=== PATIENT | male | born 1945 | race Caucasian/White ===

== ENCOUNTER → 2017-04-16 16:07 | Outpatient (CLI) | payer MEDICARE, BC, SELFPAY ==
--- NOTE | 2017-04-16 16:17 | XR_ITS ---
XR ribs RT min 3V w CXR1V HISTORY: Right-sided chest pain ITS.REASON: RT SCAPULA PAIN,RT RIB PAIN ORDERING PHYSICIAN: Silvino Guthrie MD PATIENT AGE: 72 years COMPARISON: None FINDINGS: A frontal view of the chest shows no acute finding. Multiple views of the right ribs were obtained. No fracture or dislocation. No lytic or blastic change. IMPRESSION: Negative RIBS. If pain persists, consider follow-up exam in 7-[address] with 3-D reformats.
--- NOTE | 2017-04-16 16:17 | XR_ITS ---
XR scapula RT CLINICAL INDICATION: Right scapular pain ORDERING PHYSICIAN: Silvino Guthrie MD PATIENT AGE: 72 years COMPARISON: None FINDINGS: No fracture or dislocation. No lytic or blastic change. Mild osteoarthritic change of the acromioclavicular joint. IMPRESSION: Negative right scapula. Mild osteoarthritic change of the acromioclavicular joint
== END ==
PROVIDERS: PCP Family Medicine; Visit Provider Family Medicine
DX: M89.8X1 Other specified disorders of bone, shoulder (principal); R07.81 Pleurodynia
CPT/HCPCS: 71101; 73010

== ENCOUNTER → 2017-05-03 11:56 | Outpatient (POV) | payer MEDICARE, BC, SELFPAY | PROVIDERS: Visit Provider Podiatrist | DX: Z00.00 Encounter for general adult medical examination without abnormal findings (principal) ==

== ENCOUNTER → 2017-05-03 13:19 | Outpatient (CLI) | payer MEDICARE, BC, SELFPAY ==
--- NOTE | 2017-05-03 13:21 | CT_ITS ---
CT chest wo con HISTORY: Hepatocellular carcinoma, evaluate for metastatic disease ITS.REASON: HEPATOCELLULAR CARCINOMA ORDERING PHYSICIAN: Court Vrema MD PATIENT AGE: 72 years TECHNIQUE: Axial images obtained. Sagittal and coronal reformatted images are also generated and reviewed. CONTRAST: None COMPARISON: None FINDINGS: No mediastinal mass. No evidence of mediastinal or hilar adenopathy. No obvious hilar mass. There are coronary artery calcifications. These are dense in nature. Normal heart size. No evidence of pericardial effusion. The lungs are clear. No suspicious pulmonary nodules. No infiltrate or effusion. No obvious chest wall mass. There is mild loss of height anteriorly of T7 and T8 age-indeterminate. Upper abdominal images show subtle isodensity in the liver at segment 5 as previously described on previous MRIs and could be due to an area of neoplasm/treated neoplasm. Please see MRI report for further detail. IMPRESSION: 1. No evidence of thoracic metastasis 2. Persistent lobular contour with slight decreased attenuation of the liver at segment 5 which may be related to neoplasm or treated neoplasm
== END ==
PROVIDERS: Visit Provider Surgery
DX: Z03.89 Encounter for observation for other suspected diseases and conditions ruled out (principal); C22.0 Liver cell carcinoma
CPT/HCPCS: 71250

== ENCOUNTER → 2017-06-21 08:49 | Outpatient (POV) | payer MEDICARE, BC, SELFPAY | PROVIDERS: PCP Family Medicine; Visit Provider Podiatrist | DX: Z00.00 Encounter for general adult medical examination without abnormal findings (principal) ==

== ENCOUNTER → 2017-07-03 14:59 | Outpatient (POV) | payer MEDICARE, BC, SELFPAY | PROVIDERS: PCP Family Medicine | DX: Z00.00 Encounter for general adult medical examination without abnormal findings (principal) ==

== ENCOUNTER → 2017-10-23 12:36 | Outpatient (CLI) | payer MEDICARE, BC, SELFPAY ==
--- NOTE | 2017-10-23 12:39 | CT_ITS ---
CT chest wo con HISTORY: Cholangiocarcinoma, evaluate for metastasis ITS.REASON: CHOLANGIACARCINOMA ORDERING PHYSICIAN: Court Verma MD PATIENT AGE: 72 years COMPARISON: 05/03/2017 Technique: Axial images obtained without contrast with sagittal and coronal reformats. All CT scans at the facility use one or more dose reduction, viz: automated exposure control, ma/kV adjustment per patient size (including targeted exams where dose is matched to indication, i.e. head), or iterative reconstruction technique. FINDINGS: No mediastinal or hilar mass or adenopathy is evident. There is extensive coronary artery calcification and/or stents noted. Heart size is normal with no evidence of pericardial effusion. No suspicious pulmonary nodules are evident. No infiltrates or effusions. Central airways are patent. No acute bony anomalies. No bony destructive process. Upper abdominal images demonstrate low density changes involving segment 4 of the liver measuring 7 x 4 cm with stranding in the fat anterior to this region. These low density changes could be either neoplastic or secondary to recent treatment for both. The stranding of the fat anterior to the liver may be related to patient's recent microwave ablation. Follow-up suggested with contrast. There is mild splenomegaly at 16 cm IMPRESSION: 1. No evidence of pulmonary metastasis. 2. Low density changes in segment 4 of the liver as described above which could be neoplastic or secondary to recent treatment or both
== END ==
PROVIDERS: PCP Family Medicine; Visit Provider Surgery
DX: C22.0 Liver cell carcinoma (principal)
CPT/HCPCS: 71250

== ENCOUNTER → 2018-01-07 09:50 | Outpatient (CLI) | payer MEDICARE, BC, SELFPAY ==
--- NOTE | 2018-01-07 09:53 | CT_ITS ---
CT chest wo con HISTORY: ITS.REASON: CHOLANGIOCARCINOMA W/RECENT PROGRESSION Evaluate for metastasis ORDERING PHYSICIAN: Court Verma MD PATIENT AGE: 72 years COMPARISON: 10/23/2017 Technique: Axial images obtained with sagittal and coronal reformats. All CT scans at the facility use one or more dose reduction, viz: automated exposure control, ma/kV adjustment per patient size (including targeted exams where dose is matched to indication, i.e. head), or iterative reconstruction technique. FINDINGS: No mediastinal or hilar adenopathy or mass. There is extensive coronary artery calcifications and/or coronary stents present. Normal heart size without evidence of pericardial effusion. No suspicious pulmonary nodules are evident. No effusions or infiltrates. No bony destructive lesions. Calcific tendinitis suspected of the right shoulder. There is mild kyphosis of the thoracic spine with mild wedging involving the T9 vertebral body. There is nonspecific small lucency involving the T1 vertebral body on the left and T11 vertebral body on the right. These are nonsignificant change and could be due to small hemangiomas. Upper abdominal images once again show stranding of the fat anterior to an atrophic lateral segment of the left hepatic lobe with stranding of the fat anterior to this region which may be due to prior treatment. Just inferior to this is an area of slightly hypodensity measuring approximately 8 x 5 cm suspicious for neoplastic involvement. Please correlate with any other recent exams fat the patient may have had at outside institutions. There are no recent abdominal exams available for comparison. This is suspicious for residual or recurrent neoplasm. IMPRESSION: 1. No evidence of pulmonary metastasis. 2. Residual or recurrent mass in the right hepatic lobe anteriorly suspicious for neoplasm incompletely evaluated without contrast
== END ==
PROVIDERS: PCP Family Medicine; Visit Provider Surgery
DX: C22.1 Intrahepatic bile duct carcinoma (principal)
CPT/HCPCS: 71250

== ENCOUNTER → 2018-01-09 10:05 | Outpatient (POV) | payer MEDICARE, BC, SELFPAY | PROVIDERS: Visit Provider Podiatrist | DX: Z00.00 Encounter for general adult medical examination without abnormal findings (principal) ==

== ENCOUNTER → 2018-01-23 10:49 | Outpatient (POV) | payer MEDICARE, BC, SELFPAY | PROVIDERS: Visit Provider Podiatrist | DX: Z00.00 Encounter for general adult medical examination without abnormal findings (principal) ==

== ENCOUNTER → 2018-04-23 12:39 | Outpatient (CLI) | payer MEDICARE, BC, SELFPAY ==
--- NOTE | 2018-04-23 12:49 | XR_ITS ---
XR finger LT min 2V CLINICAL INDICATION: ITS.REASON: LT THUMB LACERATION/ fracture. ORDERING PHYSICIAN: Jocelynn Vera MD PATIENT AGE: 73 years Comparison: 04/07/2018 FINDINGS: Comminuted fracture once again noted involving the distal aspect of the distal phalanx of the thumb with mild distraction of fracture fragments. The distraction appears less apparent. There is an oblique fracture at the base and lateral aspect of the distal phalanx of thumb at the interphalangeal joint. This is not significant changed. IMPRESSION: Fractures of the distal phalanx of the thumb as described above not significantly changed
== END ==
PROVIDERS: PCP Family Medicine; Visit Provider Orthopaedic Surgery
DX: S62.502A Fracture of unspecified phalanx of left thumb, initial encounter for closed fracture (principal)
CPT/HCPCS: 73140

== ENCOUNTER → 2018-05-15 09:52 | Outpatient (CLI) | payer MEDICARE, BC, SELFPAY ==
--- NOTE | 2018-05-15 10:05 | XR_ITS ---
XR foot wt bearing LT 3V Ordering Physician: Toma Rees DPM Patient Age: 73 years: Male HISTORY: ITS.REASON: wound sub 5th met Diabetic foot ulcer. Near Fifth metatarsal TECHNIQUE: 3 view left foot, weightbearing COMPARISON : Left ankle December 2016 FINDINGS There is soft tissue swelling seen laterally at the foot most pronounced overlying the distal metatarsal and fifth MTP joint. However there are no destructive or erosive changes appreciable here on plain film. No obvious features of osteomyelitis. Concern persist consider MR for further evaluation Small vessel calcifications at the foot reflectingDiabetes. There is hammertoe, flexion deformity at toes. Most pronounced deformity is seen at the great toe with arthritic changes at IP joint great toe.. Developing Arthritic changes most notable at dorsal aspect navicular-first cuneiform articulation. Also suspect scant arthritic changes at degenerative changes at the second and third tarsometatarsal joint. A plantar calcaneal spur and spurring at insertion of Achilles tendon. IMPRESSION: . Soft tissue swelling lateral foot overlying the metatarsal head. However no osseous or erosive changes here. Flexion/hammertoe deformity at the toes noted; most pronounced at the great toe.. Developing arthritic changes of most notable at the navicular first cuneiforms articulation
[2018-05-15 10:23] LABS: Basophils % 0.2 % (0.1-2.0); Eosinophils # 0.1 K/mm3 (0.0-0.4); Eosinophils % 1.3 % (0.1-12.0); Hematocrit 37.4 % (42.0-52.0); Hemoglobin 12.3 g/dL (14.1-18.0); Lymphocytes # 1.1 K/mm3 (0.7-4.5); Lymphocytes % 18.6 % (10-50); Mean Corpuscular Hemoglobin 31.5 pg (27.0-31.2); Mean Corpuscular Volume 95.6 fl (80-94); Monocytes # 0.6 K/mm3 (0.1-1.0); Monocytes % 11.1 % (1.7-9.3); Neutrophils % 68.8 % (37.0-80.0); Platelet Count 179 K/mm3 (142-424); Red Blood Count 3.92 M/mm3 (4.60-6.20); Red Cell Distribution Width 19.5 % (11.5-17.5); White Blood Count 5.8 K/mm3 (4.8-10.8)
[2018-05-15 11:25] LABS: Alanine Aminotransferase 80 U/L (12-78); Albumin Level 2.8 gm/dL (3.4-5.0); Alkaline Phosphatase 100 U/L (46-116); Anion Gap 15.1 mEq/L (5-15); Aspartate Amino Transferase 85 U/L (15-37); Bilirubin,Total 1.7 mg/dL (0.2-1.0); Blood Urea Nitrogen 10 mg/dL (7-18); C-Reactive Protein 8.9 mg/L (0.0-0.9); Calcium 8.7 mg/dL (8.5-10.1); Carbon Dioxide 23 mmol/L (21.0-32.0); Chloride 102 mmol/L (98-107); Creatinine,Serum 0.62 mg/dL (0.70-1.30); Estimated Glomerular Filt Rate 128 ml/min (>60); GFR (African American) 155 ML/MIN (>60); Globulin 2.9 gm/dl (1.3-3.2); Glucose 251 mg/dL (74-106); Potassium 4.1 mmoL/L (3.5-5.1); Sodium 136 mmol/L (136-145); Total Protein,Serum 5.7 gm/dL (6.4-8.2)
[2018-05-15 12:39] LABS: Erythrocyte Sedimentation Rate 46 mm/hr (0-20)
[2018-05-15 13:10] LABS: Hemoglobin A1C 7.2 % (0.0-7.0)
== END ==
PROVIDERS: Visit Provider Podiatrist
DX: Z51.89 Encounter for other specified aftercare (principal); E11.8 Type 2 diabetes mellitus with unspecified complications; Z79.4 Long term (current) use of insulin
CPT/HCPCS: 36415; 73630; 80053; 83036; 85025; 85651; 86140; 87070; 87077; 87186; 87205

== ENCOUNTER → 2018-05-21 15:23 | Outpatient (CLI) | payer MEDICARE, BC, SELFPAY ==
--- NOTE | 2018-05-21 15:27 | XR_ITS ---
XR finger LT min 2V CLINICAL INDICATION: Follow-up fracture ITS.REASON: follow up left thumb fracture/ nail bed injury ORDERING PHYSICIAN: Jocelynn Vera MD PATIENT AGE: 73 years Comparison: 04/23/2018 FINDINGS: Comminuted fracture involves the distal phalanx of the left thumb. There is a transverse component distally with no evidence of bony union. Fracture line is still visible. There is an oblique nondisplaced fracture of the proximal aspect of the distal phalanx dorsally which is unchanged. IMPRESSION: No change nondisplaced fractures of the distal tendons of the thumb as described above. No bony union apparent
== END ==
PROVIDERS: PCP Family Medicine; Visit Provider Orthopaedic Surgery
DX: S62.502A Fracture of unspecified phalanx of left thumb, initial encounter for closed fracture (principal)
CPT/HCPCS: 73140

== ENCOUNTER → 2018-05-26 14:05 | Outpatient (CLI) | payer MEDICARE, BC, SELFPAY ==
--- NOTE | 2018-05-26 14:09 | XR_ITS ---
XR foot wt bearing RT 3V, XR foot wt bearing LT 3V Ordering Physician: Toma Rees DPM Patient Age: 73 years: Male HISTORY: ITS.REASON: Charcot Left foot Diabetic foot ulcer beneath fifth metatarsal Open wound plantar aspect left foot slice infected wound. Patient would not remove sock for these images left foot Right foot Charcot's joint right foot patient states bandage is semi permanent and would not remove TECHNIQUE: Right foot: 3 view weightbearing Left foot: 3 view weightbearing ======== RIGHT FOOT COMPARISON is made to right foot plain film from December 2016 Severe Charcot joint arthritic changes right midfoot again observed. (& much more severe & pronounced at the right foot than left).. There is Collapse of mid foot on right compared to left. Downward tilting of distal talus with pronounced pes planus.. Most severe arthritic changes are seen about the navicular of followed by calcaneal cuboid articulations. Navicular appears to be somewhat fragmented and collapsed. Fragments are seen extending superior to the distal talus on lateral view. It. There is mild diffuse soft tissue swelling at the foot Hammertoe deformities at toes again noted Arthritic changes IP joint of great toe noted. First MCP joint is maintained. ...... IMPRESSION... Right foot 1. Severe, advanced Charcot joint changes at right mid foot (Charcot's changes much more pronounced and severe right foot right foot than left) .. Collapse of midfoot . Pes planus Overall similar to 2017 right foot radiograph with only perhaps slight progression 2. Hammertoe deformities. Again noted LEFT FOOT comparison is made to left foot radiograph January 08, 2017 & May .. Soft tissue swelling lateral fifth foot-most notableoverlying distal fifth MT & fifth metatarsal MTP joint. However osseous structures appear stable since prior study. No definitive destructive features appreciable here on plain film.. On close inspection there is subtle Subtle ovoid lucency at the medial aspect base proximal phalanx fifth toe again noted similar to previous study and most likely reflects subchondral cystic focus but should be followed.. If significant Concern clinically consider MR for further evaluation Mild degenerative narrowing PIP joint of fifth toe with slight roughening at the lateral aspect head of proximal phalanx is stable since 2017. Small vessel calcifications at the foot reflectingDiabetes. Developing Charcot's joint changes noted at tarsals Arthritic changes most notable at dorsal aspect navicular-first cuneiformarticulation. Also suspect mild arthritic changes at degenerative changes atthe second and third tarsometatarsal joint as well as of proximal dorsal aspect of talar-navicular joint.. Hammertoe, flexion deformity at toes again noted. Most pronounced deformity is seen at the great toe with arthritic changes at IP joint great toe.. plantar calcaneal spur again noted along withspurring at insertion of Achilles tendon. ----IMPRESSION:--- Left foot------- . Soft tissue swelling lateral foot , most pronounced overlying the fifth metatarsal head &5thMTP joint. However no definitive osseous destructive changes. Osseous structures with no appreciable change since since 05/15/2018 There is Question slight suggestion subtle probable subchondral cyst lucency medial base possible phalanx fifth fifth MTP joint Close follow-up here and elsewhere warranted Flexion/hammertoe deformity at toes,; most pronounced at the great toe Developing Charcot's arthritic changes mid left foot most noted at navicular first cuneiformsarticulation. (However the Charcot joint findings are much much more severe at the right foot
== END ==
PROVIDERS: PCP Family Medicine; Visit Provider Podiatrist
DX: E11.610 Type 2 diabetes mellitus with diabetic neuropathic arthropathy (principal); Z79.4 Long term (current) use of insulin
CPT/HCPCS: 73630

== ENCOUNTER → 2018-06-03 16:01 | Outpatient (CLI) | payer MEDICARE, BC, SELFPAY ==
[2018-06-03 16:30] LABS: Basophils % 0.5 % (0.1-2.0); Eosinophils # 0.2 K/mm3 (0.0-0.4); Hematocrit 42.5 % (42.0-52.0); Hemoglobin 13.3 g/dL (14.1-18.0); Lymphocytes # 1.4 K/mm3 (0.7-4.5); Lymphocytes % 22.7 % (10-50); Mean Corpuscular HGB Conc 31.2 g/dL (31.8-35.4); Mean Corpuscular Hemoglobin 30.5 pg (27.0-31.2); Mean Corpuscular Volume 97.7 fl (80-94); Mean Platelet Volume 7.8 fl (7.4-10.4); Monocytes # 0.4 K/mm3 (0.1-1.0); Monocytes % 7.2 % (1.7-9.3); Neutrophils # 3.9 K/mm3 (1.8-7.8); Neutrophils % 65.6 % (37.0-80.0); Platelet Count 167 K/mm3 (142-424); Red Blood Count 4.35 M/mm3 (4.60-6.20); Red Cell Distribution Width 18.3 % (11.5-17.5)
[2018-06-03 18:57] LABS: C-Reactive Protein 1.3 mg/L (0.0-0.9)
== END ==
PROVIDERS: Visit Provider Podiatrist
DX: E08.621 Diabetes mellitus due to underlying condition with foot ulcer (principal); L97.525 Non-pressure chronic ulcer of other part of left foot with muscle involvement without evidence of necrosis; Z51.89 Encounter for other specified aftercare; Z79.4 Long term (current) use of insulin
CPT/HCPCS: 36415; 85025; 86140

== ENCOUNTER → 2018-06-18 09:02 | Outpatient (CLI) | payer MEDICARE, BC, SELFPAY ==
[2018-06-18 10:22] LABS: Basophils % 0.5 % (0.1-2.0); Eosinophils # 0.2 K/mm3 (0.0-0.4); Eosinophils % 5.3 % (0.1-12.0); Hematocrit 40.1 % (42.0-52.0); Hemoglobin 13.1 g/dL (14.1-18.0); Lymphocytes % 23.5 % (10-50); Mean Corpuscular HGB Conc 32.6 g/dL (31.8-35.4); Mean Corpuscular Hemoglobin 31.3 pg (27.0-31.2); Mean Corpuscular Volume 95.9 fl (80-94); Mean Platelet Volume 7.6 fl (7.4-10.4); Monocytes # 0.2 K/mm3 (0.1-1.0); Monocytes % 5.6 % (1.7-9.3); Neutrophils # 2.8 K/mm3 (1.8-7.8); Neutrophils % 65.1 % (37.0-80.0); Platelet Count 141 K/mm3 (142-424); Red Blood Count 4.19 M/mm3 (4.60-6.20); Red Cell Distribution Width 18.4 % (11.5-17.5); White Blood Count 4.3 K/mm3 (4.8-10.8)
[2018-06-18 11:08] LABS: Alanine Aminotransferase 40 U/L (12-78); Albumin Level 2.8 gm/dL (3.4-5.0); Albumin/Globulin Ratio 0.9 (1.1-1.8); Alkaline Phosphatase 94 U/L (46-116); Anion Gap 16.2 mEq/L (5-15); Aspartate Amino Transferase 44 U/L (15-37); Blood Urea Nitrogen 8 mg/dL (7-18); C-Reactive Protein 1.3 mg/L (0.0-0.9); Calcium 8.8 mg/dL (8.5-10.1); Carbon Dioxide 22 mmol/L (21.0-32.0); Chloride 106 mmol/L (98-107); Creatinine,Serum 0.64 mg/dL (0.70-1.30); Estimated Glomerular Filt Rate 123 ml/min (>60); GFR (African American) 149 ML/MIN (>60); Globulin 3.1 gm/dl (1.3-3.2); Glucose 219 mg/dL (74-106); Potassium 4.2 mmoL/L (3.5-5.1); Sodium 140 mmol/L (136-145); Total Protein,Serum 5.9 gm/dL (6.4-8.2)
[2018-06-18 11:52] LABS: Erythrocyte Sedimentation Rate 34 mm/hr (0-20)
== END ==
PROVIDERS: Visit Provider Podiatrist
DX: L97.525 Non-pressure chronic ulcer of other part of left foot with muscle involvement without evidence of necrosis (principal); Z51.89 Encounter for other specified aftercare; E08.621 Diabetes mellitus due to underlying condition with foot ulcer; Z79.4 Long term (current) use of insulin
CPT/HCPCS: 36415; 80053; 85025; 85651; 86140

== ENCOUNTER → 2018-07-03 09:46 | Outpatient (CLI) | payer MEDICARE, BC, SELFPAY ==
--- NOTE | 2018-07-03 09:53 | XR_ITS ---
XR finger LT min 2V CLINICAL INDICATION: Follow-up fracture ITS.REASON: follow up left thumb fracture/ nail bed injury ORDERING PHYSICIAN: Jocelynn Vera MD PATIENT AGE: 73 years Comparison: 05/21/2018 FINDINGS: Ununited transverse fracture noted involving the distal aspect of the distal phalanx of the thumb. The fracture is not significantly displaced. No bony union evident with no significant callus formation. IMPRESSION: Overall no change in the ununited nondisplaced fracture of the distal phalanx of the thumb
== END ==
PROVIDERS: PCP Family Medicine; Visit Provider Orthopaedic Surgery
DX: S62.522B Displaced fracture of distal phalanx of left thumb, initial encounter for open fracture (principal)
CPT/HCPCS: 73140

== ENCOUNTER → 2018-07-28 09:53 | Outpatient (CLI) | payer MEDICARE, BC, SELFPAY ==
--- NOTE | 2018-07-28 10:02 | XR_ITS ---
XR chest 2V HISTORY: ITS.REASON: HTN, DMII ORDERING PHYSICIAN: Toma Rees DPM PATIENT AGE: 73 years COMPARISON: None FINDINGS: The cardiomediastinal silhouette and pulmonary vascularity are within normal limits. Increased markings are present in the right infrahilar region suspicious for an area of atelectasis or infiltrate. No previous exams are available for comparison. Right subclavian Mediport catheter present with the tip in the region superior vena cava. Left lung is clear.. No acute bony abnormalities. IMPRESSION: Infiltrate or atelectasis in the right infrahilar region
[2018-07-28 10:12] LABS: Basophils % 0.5 % (0.1-2.0); Eosinophils # 0.3 K/mm3 (0.0-0.4); Eosinophils % 4.7 % (0.1-12.0); Hematocrit 44.7 % (42.0-52.0); Hemoglobin 15.1 g/dL (14.1-18.0); Lymphocytes # 1.4 K/mm3 (0.7-4.5); Lymphocytes % 26.2 % (10-50); Mean Corpuscular HGB Conc 33.8 g/dL (31.8-35.4); Mean Corpuscular Hemoglobin 32.9 pg (27.0-31.2); Mean Corpuscular Volume 97.2 fl (80-94); Mean Platelet Volume 7.4 fl (7.4-10.4); Monocytes # 0.3 K/mm3 (0.1-1.0); Monocytes % 5.9 % (1.7-9.3); Neutrophils # 3.3 K/mm3 (1.8-7.8); Neutrophils % 62.6 % (37.0-80.0); Platelet Count 147 K/mm3 (142-424); Red Blood Count 4.59 M/mm3 (4.60-6.20); Red Cell Distribution Width 16.9 % (11.5-17.5); White Blood Count 5.3 K/mm3 (4.8-10.8)
[2018-07-28 10:55] LABS: Alanine Aminotransferase 47 U/L (12-78); Albumin Level 3.1 gm/dL (3.4-5.0); Albumin/Globulin Ratio 0.9 (1.1-1.8); Alkaline Phosphatase 101 U/L (46-116); Anion Gap 12.5 mEq/L (5-15); Aspartate Amino Transferase 46 U/L (15-37); Bilirubin,Total 1.2 mg/dL (0.2-1.0); Blood Urea Nitrogen 8 mg/dL (7-18); C-Reactive Protein 1.5 mg/L (0.0-0.9); Calcium 8.9 mg/dL (8.5-10.1); Carbon Dioxide 28 mmol/L (21.0-32.0); Chloride 106 mmol/L (98-107); Creatinine,Serum 0.72 mg/dL (0.70-1.30); Estimated Glomerular Filt Rate 108 ml/min (>60); GFR (African American) 130 ML/MIN (>60); Globulin 3.3 gm/dl (1.3-3.2); Glucose 171 mg/dL (74-106); Potassium 4.5 mmoL/L (3.5-5.1); Sodium 142 mmol/L (136-145); Total Protein,Serum 6.4 gm/dL (6.4-8.2)
[2018-07-28 12:42] LABS: Erythrocyte Sedimentation Rate 3 mm/hr (0-20)
== END ==
PROVIDERS: PCP Family Medicine; Visit Provider Podiatrist
DX: Z01.818 Encounter for other preprocedural examination (principal); L97.522 Non-pressure chronic ulcer of other part of left foot with fat layer exposed; E08.621 Diabetes mellitus due to underlying condition with foot ulcer; Z79.4 Long term (current) use of insulin
CPT/HCPCS: 36415; 71046; 80053; 85025; 85651; 86140; 93005

== ENCOUNTER → 2018-09-25 13:41 | Outpatient (CLI) | payer MEDICARE, BC, SELFPAY ==
--- NOTE | 2018-09-25 13:46 | XR_ITS ---
XR foot wt bearing RT 3V HISTORY: ITS.REASON: pain ORDERING PHYSICIAN: Toma Rees DPM PATIENT AGE: 73 years COMPARISON: None FINDINGS: Chronic neuropathic changes are present in the midfoot at the talonavicular and navicular cuboid and cuneiform region with disorganization, increased bony density, and displacement of bony fragments. There is increased pes planus when compared to the previous exam. No acute fracture or dislocation. There is generalized vascular calcification. IMPRESSION: Slight progression of Charcot joint in the midfoot what constitutes the hindfoot
--- NOTE | 2018-09-25 13:46 | XR_ITS ---
XR foot wt bearing LT 3V HISTORY: ITS.REASON: pain ORDERING PHYSICIAN: Toma Rees DPM PATIENT AGE: 73 years COMPARISON: 08/29/2018 FINDINGS: Previously noted clips along the plantar surface of the fifth metatarsophalangeal junction been removed. There are degenerative changes in the midfoot with hypertrophic changes dorsally of the navicular/ cuneiform joint. There is some cortical irregularity of the distal aspect of the navicular with some mild flattening with osteoarthritic change. No fracture or dislocation. No lytic or blastic change. IMPRESSION: Degenerative changes of the midfoot with slight increase in flattening of the navicular distally
--- NOTE | 2018-09-25 13:46 | XR_ITS ---
XR ankle wt bearing RT min 3V HISTORY: ITS.REASON: pain ORDERING PHYSICIAN: Toma Rees DPM PATIENT AGE: 73 years Comparison: None FINDINGS: There is severe pes planus with chronic neuropathic joint in the midfoot with increased density and disorganization. At the anterior aspect of the distal tibia calcifications are once again noted and could represent sequela from old fractures or displaced bony fragments from the Charcot joint. Bony hypertrophic changes present distal to the medial malleolus. No fracture or dislocation. IMPRESSION: Neuropathic joint in the midfoot with bony debris along each aspect of the distal tibia and medial malleoli region
--- NOTE | 2018-09-25 13:46 | XR_ITS ---
XR ankle wt bearing LT min 3V HISTORY: ITS.REASON: pain ORDERING PHYSICIAN: Toma Rees DPM PATIENT AGE: 73 years Comparison: 01/08/2017 FINDINGS: There is an old ununited avulsion fracture at the tip of the medial malleolus. Mild osteoarthritic changes of the ankle joint anteriorly. No acute fracture or dislocation. IMPRESSION: No acute finding with no interval change
== END ==
PROVIDERS: PCP Family Medicine; Visit Provider Podiatrist
DX: Z98.890 Other specified postprocedural states (principal)
CPT/HCPCS: 73610; 73630

== ENCOUNTER → 2018-10-09 11:15 | Outpatient (CLI) | payer MEDICARE, BC, SELFPAY ==
--- NOTE | 2018-10-09 11:19 | XR_ITS ---
XR knee RT 4V HISTORY: ITS.REASON: pain ORDERING PHYSICIAN: Toma Rees DPM PATIENT AGE: 73 years COMPARISON: None FINDINGS: Mild osteoarthritic changes of the patellofemoral joint. Ossific density is present in the intercondylar region of the distal femur and could be related to an overlying osteophyte or avulsion injury. There is patella tessy with soft tissue swelling in the infrapatellar region. There is generalized vascular calcification. IMPRESSION: Osteoarthritis with patella alter and soft tissue swelling in the infrapatellar region with osteophyte versus avulsion fracture of the intercondylar notch. This may be better evaluated with CT if clinically warranted
--- NOTE | 2018-10-09 11:19 | XR_ITS ---
XR knee LT 4V HISTORY: ITS.REASON: pain ORDERING PHYSICIAN: Toma Rees DPM PATIENT AGE: 73 years COMPARISON: None FINDINGS: Mild osteoarthritis of the patellofemoral joint with mild patella tessy and mild thickening of the soft tissues in the infrapatellar region. No obvious fracture or dislocation. IMPRESSION: Mild osteoarthritis with patella tessy and soft tissue swelling in the infrapatellar region, no acute fracture
== END ==
PROVIDERS: PCP Family Medicine; Visit Provider Podiatrist
DX: M25.562 Pain in left knee (principal); M25.561 Pain in right knee
CPT/HCPCS: 73564

== ENCOUNTER → 2018-12-17 14:17 | Outpatient (POV) | payer MEDICARE, BC, SELFPAY | PROVIDERS: Visit Provider Internal Medicine | DX: Z00.00 Encounter for general adult medical examination without abnormal findings (principal) ==

== ENCOUNTER → 2019-03-12 08:48 | Outpatient (CLI) | payer MEDICARE, BC, SELFPAY ==
--- NOTE | 2019-03-12 08:56 | XR_ITS ---
PROCEDURE: XR FOOT WT BEARING RT 3V CLINICAL INDICATION: charcot, pain COMPARISON: FTL3 FOOT-LT-3 VIEWS from 01/08/2017 FTWBL3 XR foot wt bearing LT 3V from 05/15/2018 FTWBL3 XR foot wt bearing LT 3V from 05/26/2018 FTWBR3 XR foot wt bearing RT 3V from 05/26/2018 from 09/25/2018 from 09/25/2018 from 09/25/2018 from 09/25/2018 from 10/09/2018 from 10/09/2018 XR ANKLE WT BEARING RT MIN 3V from 03/12/2019 FINDINGS: There has been no significant change in the appearance of the midfoot with bony destruction, increased density, and disorganization the distal talus, navicular, cuboid, and proximal aspect of the cuneiforms consistent with Charcot joint with pes planus. No acute fracture or dislocation. Images of the ankle show preservation of the ankle mortise with bony hypertrophic changes along the anterior aspect of the distal tibia and the medial malleolar region. IMPRESSION: Overall no change in the appearance of the Charcot joint of the foot with pes planus. Dictated by: Dennis Hardy MD 03/12/2019 12:04 Electronically signed by Dennis Hardy MD in [facility] 03/12/2019 12:04
== END ==
PROVIDERS: PCP Family Medicine; Visit Provider Podiatrist
DX: E11.610 Type 2 diabetes mellitus with diabetic neuropathic arthropathy (principal); Z79.4 Long term (current) use of insulin
CPT/HCPCS: 73610; 73630

== ENCOUNTER → 2019-03-19 12:27 | Outpatient (CLI) | payer MEDICARE, BC, SELFPAY ==
[2019-03-19 13:23] LABS: Hemoglobin A1C 7.5 % (0.0-7.0)
[2019-03-19 13:28] LABS: Basophils # 0.1 K/mm3 (0-0.2); Basophils % 0.6 % (0.1-2.0); Eosinophils # 0.3 K/mm3 (0.0-0.4); Eosinophils % 4.5 % (0.1-12.0); Hematocrit 43.6 % (42.0-52.0); Hemoglobin 14.1 g/dL (14.1-18.0); Lymphocytes # 1.8 K/mm3 (0.7-4.5); Lymphocytes % 23.4 % (10-50); Mean Corpuscular HGB Conc 32.3 g/dL (31.8-35.4); Mean Corpuscular Hemoglobin 32.4 pg (27.0-31.2); Mean Corpuscular Volume 100.3 fl (80-94); Mean Platelet Volume 7.4 fl (7.4-10.4); Monocytes # 0.4 K/mm3 (0.1-1.0); Monocytes % 5.4 % (1.7-9.3); Neutrophils % 66.1 % (37.0-80.0); Platelet Count 199 K/mm3 (142-424); Red Blood Count 4.35 M/mm3 (4.60-6.20); Red Cell Distribution Width 15.4 % (11.5-17.5); White Blood Count 7.6 K/mm3 (4.8-10.8)
[2019-03-19 13:47] LABS: Alanine Aminotransferase 43 U/L (12-78); Albumin Level 3.1 gm/dL (3.4-5.0); Alkaline Phosphatase 87 U/L (46-116); Anion Gap 12.1 mEq/L (5-15); Aspartate Amino Transferase 34 U/L (15-37); Bilirubin,Total 1.2 mg/dL (0.2-1.0); Blood Urea Nitrogen 11 mg/dL (7-18); C-Reactive Protein 1.5 mg/dL (0.0-0.9); Calcium 9.1 mg/dL (8.5-10.1); Carbon Dioxide 26 mmol/L (21.0-32.0); Chloride 107 mmol/L (98-107); Creatinine,Serum 0.73 mg/dL (0.70-1.30); Estimated Glomerular Filt Rate 106 ml/min (>60); GFR (African American) 128 ML/MIN (>60); Glucose 207 mg/dL (74-106); Potassium 4.1 mmoL/L (3.5-5.1); Sodium 141 mmol/L (136-145); Total Protein,Serum 6.1 gm/dL (6.4-8.2)
[2019-03-19 14:12] LABS: Erythrocyte Sedimentation Rate 36 mm/hr (0-20)
== END ==
PROVIDERS: Visit Provider Podiatrist
DX: S91.319A Laceration without foreign body, unspecified foot, initial encounter (principal); Z51.89 Encounter for other specified aftercare; E11.51 Type 2 diabetes mellitus with diabetic peripheral angiopathy without gangrene; E11.621 Type 2 diabetes mellitus with foot ulcer; L97.519 Non-pressure chronic ulcer of other part of right foot with unspecified severity; Z79.4 Long term (current) use of insulin
CPT/HCPCS: 36415; 80053; 83036; 85025; 85651; 86140; 87070; 87077; 87186; 87205

== ENCOUNTER → 2019-04-02 10:58 | Outpatient (CLI) | payer MEDICARE, BC, SELFPAY ==
[2019-04-02 11:59] LABS: Basophils % 0.6 % (0.1-2.0); Eosinophils # 0.3 K/mm3 (0.0-0.4); Hematocrit 44.5 % (42.0-52.0); Hemoglobin 14.7 g/dL (14.1-18.0); Lymphocytes # 1.8 K/mm3 (0.7-4.5); Lymphocytes % 26.3 % (10-50); Mean Corpuscular Hemoglobin 32.9 pg (27.0-31.2); Mean Corpuscular Volume 99.7 fl (80-94); Mean Platelet Volume 7.7 fl (7.4-10.4); Monocytes # 0.4 K/mm3 (0.1-1.0); Monocytes % 5.4 % (1.7-9.3); Neutrophils # 4.4 K/mm3 (1.8-7.8); Neutrophils % 63.6 % (37.0-80.0); Platelet Count 180 K/mm3 (142-424); Red Blood Count 4.46 M/mm3 (4.60-6.20); Red Cell Distribution Width 14.4 % (11.5-17.5); White Blood Count 6.8 K/mm3 (4.8-10.8)
[2019-04-02 12:39] LABS: Erythrocyte Sedimentation Rate 25 mm/hr (0-20)
[2019-04-02 13:40] LABS: Alanine Aminotransferase 41 U/L (12-78); Albumin Level 3.4 gm/dL (3.4-5.0); Albumin/Globulin Ratio 1.2 (1.1-1.8); Alkaline Phosphatase 69 U/L (46-116); Anion Gap 15.2 mEq/L (5-15); Aspartate Amino Transferase 43 U/L (15-37); Bilirubin,Total 1.4 mg/dL (0.2-1.0); Blood Urea Nitrogen 12 mg/dL (7-18); C-Reactive Protein 0.6 mg/dL (0.0-0.9); Calcium 9.1 mg/dL (8.5-10.1); Carbon Dioxide 24 mmol/L (21.0-32.0); Chloride 108 mmol/L (98-107); Creatinine,Serum 0.66 mg/dL (0.70-1.30); Estimated Glomerular Filt Rate 119 ml/min (>60); GFR (African American) 144 ML/MIN (>60); Globulin 2.8 gm/dl (1.3-3.2); Glucose 124 mg/dL (74-106); Potassium 4.2 mmoL/L (3.5-5.1); Sodium 143 mmol/L (136-145); Total Protein,Serum 6.2 gm/dL (6.4-8.2)
== END ==
PROVIDERS: Visit Provider Podiatrist
DX: D72.829 Elevated white blood cell count, unspecified (principal); R53.83 Other fatigue
CPT/HCPCS: 36415; 80053; 85025; 85651; 86140

== ENCOUNTER → 2019-08-24 11:47 | Outpatient (CLI) | payer MEDICARE, BC, SELFPAY ==
--- NOTE | 2019-08-24 | CA_ITS ---
APPROVED REPORT Exam: Pharmacologic Technologist: myriam doss, Ht: 6 ft 1 in Wt: 273 lbs BSA: 2.46 m2 HR: 63 bpm BP: 136/69 mmHg Indications: CP, SOB Medical History Medications: Lisinopril,,,,, INSULIN,,,,, Magnesium,,,,, AtenELOL,,,,, ONdanESETRAN,,,,, Allergies: Sulfa Cardiac Risk Factors: FHX of CAD, Diabetes (insulin) Stress Test Details Test: LEXISCAN HR Resting HR: 64 bpm Max Heart Rate (APMHR): 148 bpm Max HR Achieved: 85 bpm Target HR (85% APMHR): 125 bpm % of APMHR: 57 Recovery HR: 69 bpm BP Resting BP: 136.0/69.0 mmHg Max BP: 152.0/70.0 mmHg Recovery BP: 148.0/72.0 mmHg ECG Resting ECG: Junctional escape vs. WAP Clinical Reason for Termination: Completed Protocol Exercise duration: 04:02 min Highest Stage Achieved: Stress ECG Conclusion Lexiscan completed. No chest pain, SOB that resolved in recovery. No ectopy. Less than 1.5mm ST Segment changes. Non-Diagnostic. Electronically signed by : Marcelino Sánchez, 08/28/2019 12:24:13
--- NOTE | 2019-08-24 11:47 | NM_ITS ---
APPROVED REPORT Exam: Nuclear Stress Test Indication: Chest pain, SOB, Fatigue, Obesity, DM, Family history, Valvular disease Patient Location: Outpatient Stress Tech: Adrianna Soni [place] Tech:Paloma Roth, ARRT, RT (R)(N) Ht: 6 ft 1 in Wt: 273 lbs HR: 63 bpm BP: 136/69 mmHg BSA: 2.46 m2 BMI: 36.0 History: Chest pain, SOB, Fatigue, Obesity, DM, Family history, Valvular disease Procedure: Patient received a 0.4 mg of intravenous Lexiscan, resting heart rate 63 bpm, resting blood pressure 136/69 mmHg, with Lexiscan maximum heart rate achived was 82 bpm which is % of the maximum predicted heart rate and blood pressure was 152/70 mmHg. With Lexiscan, patient denied any complaint of chest pain. Cardiac Stress and Resting SPECT Images: Cardiac Stress and Resting SPECT images were obtained using technetium 99m Myoview 30.8 mCi stress and 10.27 mCi at rest. Ejection fraction is normal at 60% with no obvious wall motion abnormalities. No fixed or reversible defects. Unremarkable exam with normal ejection fraction and no evidence of ischemia or infarction Conclusion: Unremarkable exam with normal ejection fraction and no evidence of ischemia or infarction Electronically signed by : Dennis Hardy MD 08/28/2019 14:22:35
--- NOTE | 2019-08-24 11:55 | CA_ITS ---
APPROVED REPORT Director Of Group Counseling Program: Shea Drake RVT Laterality: Bilateral Study Quality: Good Indications: Bruit Risk Factors Hypertension: Diabetes Doppler Spectral Velocity Analysis ECA (R) 88.80/7.20 cm/s ECA (L) 73.80/4.60 cm/s dICA (R) 57.10/12.80 cm/s dICA (L) 62.40/15.90 cm/s Melissa (R) 54.20/12.00 cm/s Melissa (L) 52.80/13.40 cm/s pICA (R) 79.20/9.60 cm/s pICA (L) 53.80/8.30 cm/s dCCA (R) 80.60/8.60 cm/s dCCA (L) 90.90/12.70 cm/s pCCA (R) 128.40/10.30 cm/s pCCA (L) 112.10/12.00 cm/s Vert (R) 29.50/8.70 cm/s Vert (L) 46.20/9.20 cm/s ICA/CCA 0.98 ICA/CCA 0.69 Findings Study suggests less than 20% stenosis of the bilateral internal cartoid arteries. Antegrade flow seen bilateral vertebral arteries. Conclusion No increased velocities to suggest hemodynamically significant stenosis in either internal carotid artery. Electronically signed by : Dennis Hardy MD 08/24/2019 18:05:18
--- NOTE | 2019-08-24 13:31 | HMH.ITSHM ---
Current Home Medications as stated by this patient Michael Hernandez or food service representative. []POTASSIUM ONDANSETRON MAGNESIUM LISINOPRIL INSULIN ATENOLOL
== END ==
PROVIDERS: PCP Family Medicine; Visit Provider Physician Assistant
DX: C22.0 Liver cell carcinoma (principal); E11.59 Type 2 diabetes mellitus with other circulatory complications; E11.610 Type 2 diabetes mellitus with diabetic neuropathic arthropathy; E66.9 Obesity, unspecified; I20.9 Angina pectoris, unspecified; R01.1 Cardiac murmur, unspecified; R09.89 Other specified symptoms and signs involving the circulatory and respiratory systems; Z86.79 Personal history of other diseases of the circulatory system; Z79.4 Long term (current) use of insulin
CPT/HCPCS: 78452; 93017; 93306; 93880; A9502; J2785

== ENCOUNTER → 2019-10-20 10:32 | Outpatient (CLI) | payer MEDICARE, BC, SELFPAY ==
--- NOTE | 2019-10-20 10:38 | US_ITS ---
APPROVED REPORT Exam Type: Ankle to Brachial Index Automation Qa Lead: Bhumi Martinez CRT Indications Claudication: Risk Factors Hypertension Obesity Diabetes Pressures/Indices Right Indices Left Indices Brachial 130.00 mmHg Brachial 126.00 mmHg Low Thigh 146.00 mmHg 1.12 Low Thigh 149.00 mmHg 1.15 Calf 153.00 mmHg 1.18 Calf 133.00 mmHg 1.02 Ankle(PT) 145.00 mmHg 1.12 Ankle(PT) 160.00 mmHg 1.23 Ankle(DP) 171.00 mmHg 1.32 Ankle(DP) 161.00 mmHg 1.24 Digit 144.00 mmHg 1.11 Digit 151.00 mmHg 1.16 Findings R OMA 1.3 L OMA 1.2 R TBI 1.1 L TBI 1.2 NORMAL PULSES NORMAL WAVEFORMS Conclusion R OMA 1.3 L OMA 1.2 R TBI 1.1 L TBI 1.2 NORMAL PULSES NORMAL WAVEFORMS Electronically signed by : Dennis Hardy MD 10/20/2019 15:37:45
== END ==
PROVIDERS: PCP Family Medicine; Visit Provider Podiatrist
DX: E11.51 Type 2 diabetes mellitus with diabetic peripheral angiopathy without gangrene (principal); R09.89 Other specified symptoms and signs involving the circulatory and respiratory systems; Z79.4 Long term (current) use of insulin
CPT/HCPCS: 93923

== ENCOUNTER → 2019-12-28 11:07 | Outpatient (CLI) | payer MEDICARE, BC, SELFPAY ==
--- NOTE | 2019-12-28 11:15 | XR_ITS ---
PROCEDURE: XR CERVICAL SPINE 5V CLINICAL INDICATION: NECK PAIN Especially with movement COMPARISON: No exams were available for comparison FINDINGS: There is normal curvature and alignment. C1 through C7 appear intact. There is no significant disc space narrowing. Oblique films show normal neural foramina bilaterally. There is minimal anterior osteophytic spurring at the C6-7 level. The prevertebral soft tissues are normal and the odontoid is normal. IMPRESSION: No significant degenerate changes considering the patient's age Dictated by: Dr. Marcelino Long MD 12/28/2019 11:57 Dr. Marcelino Long MD in [facility] 12/28/2019 11:57
== END ==
PROVIDERS: PCP Family Medicine; Visit Provider Family Medicine
DX: M54.2 Cervicalgia (principal)
CPT/HCPCS: 72050

== ENCOUNTER → 2020-01-12 13:07 | Outpatient (POV) | payer MEDICARE, BC, SELFPAY | PROVIDERS: Visit Provider Dermatology | DX: Z00.00 Encounter for general adult medical examination without abnormal findings (principal) ==

== ENCOUNTER 2020-01-25 09:00 | Outpatient (RCR) | payer MEDICARE, BC, SELFPAY ==
--- NOTE | 2020-01-18 09:46 | HMH.PTOPEV ---
PT Outpatient Evaluation Rehab PT Outpatient Evaluation Start: 01/18/20 08:44 Freq: Status: Active Protocol: Document 01/18/20 09:35 MANPREETSANDRO (Rec: 01/18/20 09:46 PHORSTEPHANIE [id number]) Electronically Signed By Caesar Marquez, PT 01/18/20 09:35 Outpatient Therapy Subjective History Subjective History Pt is 74 yowm who presents with c/o pain and clicking sounds in the neck x 2-3 yrs with insidious onset of symptoms. He reports pain is worse with movement of the nec ,especially rotation. 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 He has PMH of Asthma, A-fib, BPH, DM-II, valvular heart disease, liver cancer. Chief Complaint Pain,Stiff,Clicks Symptom Type Sharp,Stabbing Symptoms Relieved By Rest/Positioning Symptoms Aggravated By Physical Activity,Twisting Prior Functional Limitations None Current Functional Limitations Driving,Recreation Activity Symptom Description Intermittent,Activity Dependent Level of pain today (0-10) 1 Pain scale - at its worst (0-10) 3 Cervical Eval Palpation Cervical Muscles R Cervical Paraspinal,L Cervical Paraspinal,R Upper Trapezius,L Upper Trapezius Cervical/Thoracic Palpation Findings Tenderness Posture Head/C-Spine Posture Sitting Position Flexed Flexibility Deficits Upper Trapezius Muscle Length (R) Moderate Tightness,(L) Moderate Tightness Levaetor Scapulae Muscle Length (R) Moderate Tightness,(L) Moderate Tightness Pectoralis Major Muscle Length (R) Mild Tightness,(L) Mild Tightness Pectoralis Minor Muscle Length (R) Mild Tightness,(L) Mild Tightness Passive Joint Mobility Cervical PIVM Dec: R C2/3 L C2/3 R C3/4 L C3/4 R C4/5 L C4/5 R C5/6 L C5/6 R C6/7 L C6/7 R C7/T1 L C7/T1
== END 2020-01-25 09:05 | disposition home or self-care (01) ==
LOC: PT 09:00
PROVIDERS: PCP Family Medicine; Visit Provider Family Medicine
DX: M54.2 Cervicalgia (principal)
CPT/HCPCS: 97010; 97014; 97035; 97110; 97140; 97163; G0283

== ENCOUNTER 2020-04-08 11:19 | Emergency (ER) | payer MEDICARE, BC, SELFPAY ==
[2020-04-08 11:25] VITALS: BP 144/68; PULSE 73; RESP 20; TEMP 36.2; O2SAT 96; BMI 35.6
[2020-04-08 11:44] VITALS: BP 144/68; PULSE 73; RESP 20; TEMP 36.2; O2SAT 96
--- NOTE | 2020-04-08 11:44 | HMH.EDUTC ---
[facility] [place] Clinical Impression: Exposure to COVID-19 virus Disposition: Home, Self-Care Condition on Discharge: Good Instructions: Preventing the Spread of Coronavirus Discharge Instructions Additional Instructions: Drink plenty of fluids. Take tylenol for pain or fever. Return if you begin to have difficulty breathing. Follow up with your regular doctor. GO TO THE ER FOR ANY WORSENING SYMPTOMS Referrals: Silvino Guthrie MD [Primary Care Provider] - Time of Disposition: 11:48 Medical Decision Making - Medical Records Medical records reviewed: No: I reviewed the patient's medical records. - Jeff Inquiry Pt receiving controlled substance: No Vital Signs: 04/08/20 11:25 04/08/20 11:44 Temperature 97.1 F L 97.1 F L Temperature Source Oral Pulse Rate 73 Pulse Rate [Right Brachial] 73 Respiratory Rate 20 20 Blood Pressure 144/68 H Blood Pressure [Right Arm] 144/68 H Blood Pressure Mean [Right Arm] 93 Blood Pressure Source [Right Arm] Automatic Cuff Blood Pressure Position [Right Arm] Sitting 02 Sat by Pulse Oximetry 96 Oxygen Delivery Method Room Air [facility] [place] HPI - General Stated complaint: covid test Time Seen by Provider: 04/08/20 11:44 Mode of Arrival: Ambulatory Source of Information: Patient Limitations: No Limitations Description of Symptoms (Recalled from Triage Doc. by RN): PATIENT NEEDS A COVID TEST FOR PROCEDURE ON SATURDAY HE Symptoms (Recalled from RN notes): No Resp Symptoms (Recalled from RN notes): No Skin Symptoms (Recalled from RN notes): No MS Symptoms (Recalled from RN notes): No Functional Status (Recalled from RN notes): WNL - History of Present Illness Provider Complaint: He denies any exposure to covid. He denies any symptoms. He needs a covid test because he has a medical procedure scheduled next week. - Related Data Home Medications Medication Instructions Recorded Confirmed atenolol 50 mg tablet 50 mg PO QAM tab 04/22/17 03/15/20 insulin regular human 100 unit/mL 20 unit SUB-Q BID 04/22/17 03/15/20 injection solution lisinopril 40 mg tablet 40 mg PO ONCE 04/22/17 03/15/20 Insulin NPH Human Isophane 70 unit SQ BID 06/17/17 03/15/20 [Humulin N] magnesium 200 mg tablet 200 mg PO DAILY 05/08/18 03/15/20 potassium chloride 20 mEq 1 tab PO DAILY 30 Days #60 tab 06/25/18 03/15/20 tablet,extended release(part/cryst) aspirin 81 mg tablet,delayed 81 mg PO DAILY 09/07/19 03/15/20 release Allergies Allergy/AdvReac Type Severity Reaction Status Date / Time codeine Allergy Mild Verified 03/15/20 08:08 Sulfa (Sulfonamide Allergy Unknown Verified 03/15/20 08:08 Antibiotics) [SULFA (SULFONAMIDE ANTIBIOTICS)] - Worker's Comp Is this a Worker's Comp case?: No [facility] History - Hepatitis A Screen Drug use history?: No High risk sexual behaviors?: No History of sexually transmitted infection?: No Currently employed?: No Childcare worker?: No Do you have indoor plumbing?: Yes Do you have electricity?: Yes Attestation statement:: This patient has been screened for Hepatitis A risk factors. I have reviewed the patient's past medical history: Yes Medical History: Reports:: Asthma, Atrial Fibrillation, BPH, Cancer, Diabetes Mellitus Type 2, Gastroesophageal Reflux Disease(GERD), Hypertension, Valvular Heart Disease Denies:: Aneurysm, Congestive Heart Failure, Chronic Obstructive Pulmonary Disease (COPD), Cerebrovascular Accident, Diabetes Mellitus Type 1, Hyperlipidemia, Internal Pacemaker, Lung Disease, MRSA, Myocardial Infarction, Renal Disease, Renal Insufficiency, Seizures Other Medical History: Reports: Arthritis, Cataracts, Liver Disease. Denies: Blood Transfusion Reaction, Hypothyroidism, Sinus Problems, Thyroid Disease Comment: ROLAND Laterality Cases: Bilateral: Tonsillectomy, Other Other Surgeries: Yes: No Previous Surgery, Cancer Surgery, Cholecystectomy, Colonoscopy, Other. No: Pacemaker Amputation: No Fr
--- NOTE | 2020-04-08 15:45 | PC.NURSE ---
RESULTS FAXED TO [facility] PER PATIENTS REQUEST, BROOKE IN MEDICAL RECORDS NOTIFIED THAT WE WERE SENDING THEM AND WAS OK WITH IT
== END 2020-04-08 11:50 | disposition home or self-care (01) ==
PROVIDERS: Emergency Provider Nurse Practitioner Family; PCP Family Medicine
DX: Z20.822 Contact with and (suspected) exposure to COVID-19 (principal); I10 Essential (primary) hypertension; I48.20 Chronic atrial fibrillation, unspecified; K21.9 Gastro-esophageal reflux disease without esophagitis; E11.9 Type 2 diabetes mellitus without complications; Z79.899 Other long term (current) drug therapy; Z88.2 Allergy status to sulfonamides; Z88.5 Allergy status to narcotic agent
CPT/HCPCS: G0463; 99202; U0003

== ENCOUNTER 2020-04-15 17:11 | Emergency (ER) | payer MEDICARE, BC, SELFPAY ==
[2020-04-15 17:33] VITALS: BP 132/53; PULSE 82; RESP 16; TEMP 36.3; O2SAT 94; BMI 36.3
--- NOTE | 2020-04-15 17:46 | HMH.EDUTC ---
[facility] [place] Disposition Clinical Impression: Shoulder pain Qualifiers: Chronicity: unspecified Laterality: right Qualified Code(s): M25.511 - Pain in right shoulder Disposition: Home, Self-Care Condition on Discharge: Good Instructions: How to Use a Sling, How To Perform RICE (Rest, Ice, Compress, Elevate) Additional Instructions: Make sure to follow with [facility] or your Family Physician if no improvement or any worsening of symptoms or inability to pass gas Call Dr Vera office on Saturday for appointment Return if needed Straight to ER if any worsening of symptoms or worsening of pain in abdomen *RICE, Rest the extremity, Ice 15-20 minutes 3-4 times daily, Compress- wear the tobi wrap as discussed as much as possible to help reduce swelling and pain, Elevate the extremity when at rest *Tobi wrap/sling is for support and help control swelling, use it except in the shower. Be sure that is not to tight but not to loose either *Elevate when resting *Ibuprofen every 6-8 hours as needed for pain an inflammation if your doctor told you that you can take it If need something more can take Tylenol in between doses of Ibuprofen to help Immediately follow up with your family doctor for new or worsening of symptoms, or no noticeable improvement over the next 3-5 days Referrals: Silvino Guthrie MD [Primary Care Provider] - As needed Jocelynn Vera MD [Physician] - Time of Disposition: 18:32 Medical Decision Making - Jeff Inquiry Pt receiving controlled substance: No Jeff was queried for this patient: No Vital Signs: 04/15/20 17:33 04/15/20 18:30 Temperature 97.3 F L 987.8 F H Temperature Source Tympanic Tympanic Pulse Rate 83 Pulse Rate [Right] 82 Respiratory Rate 16 16 Blood Pressure 132/85 Blood Pressure [Right Arm] 132/53 L Blood Pressure Mean [Right Arm] 79 Blood Pressure Source [Right Arm] Automatic Cuff Blood Pressure Position Sitting Blood Pressure Position [Right Arm] Sitting 02 Sat by Pulse Oximetry 94 L Oxygen Delivery Method Room Air Orders (Tests/Meds): ORDERS Category Date Time Status Shoulder XR right miminum 2 views [XR shoulder RT min Exams 04/15/20 17:47 Taken 2V] Stat - Radiology Data #1 Image(s): Shoulder (right shoulder) Image Reviewed: Yes I reviewed the patient's radiology image Preliminary Findings: No Fracture Seen - Physician Consults Physician Consulted: Sukhjinder Time: 18:18 Reason -: Orthopedic Eval/Care Comment/Response: He advised to place in sling and have patient call office for appointment with Dr Jody WHITFIELD and NSAIDs for pain if he can take them Medical Decision Narrative: Spoke with patient about discomfort in lower abdomen and due to recently surgical procedure and abdominal pain recommended that patient be transferred to the ED for further work up and patient declined states that he did not want to be checked out for his abdomen State that he wanted to get his shoulder xrayed and did not want to have his abdomen evaluated Again spoke with patient about discomfort in abdomen and patient declined transfer again advised that if pain got worse he would follow up with his PCP or go straight to [place] HPI - General Stated complaint: right shoulder pain Time Seen by Provider: 04/15/20 17:46 Mode of Arrival: Ambulatory Source of Information: Patient Limitations: No Limitations Description of Symptoms (Recalled from Triage Doc. by RN): pt had a microwave ablation on his liver saturday at cancer center. the staff told him the had a lot of trouble positioning him on the table. since he has had right shoulder pain that he says is similar to when he tore his rotator cuff years ago. pain 10/18. Dr. Carlos aware. pt is also complaining of lower abd pain. he states when he has had the liver ablations before he never had lingering pain like this from the air in the surgery. suggested he come here to have it checked out. HEENT Symptoms (Recalled fro
--- NOTE | 2020-04-15 17:47 | XR_ITS ---
PROCEDURE: XR SHOULDER RT MIN 2V CLINICAL INDICATION: shoulder pain Right shoulder pain with painful range of motion COMPARISON: No exams were available for comparison FINDINGS: No fracture or dislocation. No lytic or blastic change. There is normal mineralization. Mild osteoarthritis of the acromioclavicular and glenohumeral joint. Other findings:MediPort catheter is present from right subclavian approach with tip in the region the right atrium IMPRESSION: Mild osteoarthritis Dictated by: Dennis Hardy MD 04/16/2020 08:12 Dennis Hardy MD in [place] 04/16/2020 08:12
--- NOTE | 2020-04-15 18:29 | PC.NURSE ---
Elyssa CALDERON discussed with patient that we would have to transfer him to the ER to treat his abdominal pain from his recent surgery. the pt refuses to go to the er and states he only wants to be treated for his shoulder pain.
[2020-04-15 18:30] VITALS: BP 132/85; PULSE 83; RESP 16; TEMP 531; TEMP 987.8
== END 2020-04-15 18:38 | disposition home or self-care (01) ==
PROVIDERS: Emergency Provider Nurse Practitioner; PCP Family Medicine
DX: M25.511 Pain in right shoulder (principal); R10.30 Lower abdominal pain, unspecified; K76.9 Liver disease, unspecified; I48.91 Unspecified atrial fibrillation; K21.9 Gastro-esophageal reflux disease without esophagitis; E11.9 Type 2 diabetes mellitus without complications; I10 Essential (primary) hypertension; E03.9 Hypothyroidism, unspecified; E66.9 Obesity, unspecified; Z68.36 Body mass index [BMI] 36.0-36.9, adult; Z79.899 Other long term (current) drug therapy; Z88.2 Allergy status to sulfonamides; Z88.5 Allergy status to narcotic agent
CPT/HCPCS: G0463; 73030; 99202

== ENCOUNTER → 2020-05-04 15:58 | Outpatient (CLI) | payer MEDICARE, BC, SELFPAY ==
--- NOTE | 2020-05-04 16:05 | XR_ITS ---
PROCEDURE: XR CHEST 2V CLINICAL HISTORY: COUGH COMPARISON: CR [id number] XR ribs RT min 3V w CXR1V from 04/16/[address] chest wo con from 01/07/2018 DX CXR2V XR chest 2V from 07/28/2018 FINDINGS: The cardiomediastinal silhouette and pulmonary vascularity are within normal limits. MediPort catheter is present from right subclavian approach with the tip in the region the SVC. There is mild right apical pleural thickening. Degenerative changes are present in the thoracic spine. IMPRESSION: No change with no acute finding Dictated by: Dennis Hardy MD 05/04/2020 16:24 Dennis Hardy MD in [facility] 05/04/2020 16:24
== END ==
PROVIDERS: PCP Family Medicine; Visit Provider Family Medicine
DX: R05 Cough (principal)
CPT/HCPCS: 71046

== ENCOUNTER → 2020-10-24 08:03 | Outpatient (CLI) | payer MEDICARE, BC, SELFPAY | PROVIDERS: Visit Provider Podiatrist | DX: Z51.89 Encounter for other specified aftercare (principal); E11.621 Type 2 diabetes mellitus with foot ulcer; L97.412 Non-pressure chronic ulcer of right heel and midfoot with fat layer exposed; L97.522 Non-pressure chronic ulcer of other part of left foot with fat layer exposed; Z79.4 Long term (current) use of insulin | CPT/HCPCS: 87070; 87077; 87186; 87205 ==

== ENCOUNTER → 2020-12-29 10:34 | Outpatient (CLI) | payer MEDICARE, BC, SELFPAY | PROVIDERS: PCP Family Medicine; Visit Provider Nurse Practitioner | DX: Z20.822 Contact with and (suspected) exposure to COVID-19 (principal) | CPT/HCPCS: C9803; U0003; U0005 ==

== ENCOUNTER 2021-01-29 10:25 | Inpatient (IN) | payer MEDICARE, BC, SELFPAY ==
[2021-01-29] VITALS (27 sets, daily range): BP systolic 89–139; BP diastolic 44–82; PULSE 80–103; RESP 12–20; TEMP 36.8–37.6; O2SAT 93–100; BMI 35.6; BMI 38.4
--- NOTE | 2021-01-29 11:05 | CT_ITS ---
PROCEDURE INFORMATION: Exam: CT Head Without Contrast Exam date and time: 01/29/2021 11:05 AM Age: 75 years old Clinical indication: Dizziness, Confusion. TECHNIQUE: Imaging protocol: Computed tomography of the head without contrast. Radiation optimization: All CT scans at this facility use at least one of these dose optimization techniques: automated exposure control; mA and/or kV adjustment per patient size (includes targeted exams where dose is matched to clinical indication); or iterative reconstruction. COMPARISON: CR XR CERVICAL SPINE 5V 12/28/2019 11:20 AM FINDINGS: Brain: Normal. No hemorrhage. Unremarkable white matter. No mass effect. Cerebral ventricles: No ventriculomegaly. Paranasal sinuses: There is mild sinus disease. Mastoid air cells: Visualized mastoid air cells are well aerated. Vasculature: There is moderate intracranial vascular calcification. Bones/joints: Unremarkable. No acute fracture. Soft tissues: Unremarkable. IMPRESSION: No acute intracranial abnormality.
--- NOTE | 2021-01-29 11:05 | XR_ITS ---
PROCEDURE INFORMATION: Exam: XR Chest Exam date and time: 01/29/2021 11:05 AM Age: 75 years old Clinical indication: Shortness of breath and other: Weakness TECHNIQUE: Imaging protocol: XR of the chest. Views: 1 view. COMPARISON: CT ANGIO CHEST PE PROTOCOL 01/29/2021 12:05 PM FINDINGS: Lungs: Patchy opacities in both lung bases may represent atelectasis or pneumonia.. Pleural spaces: Unremarkable. No pleural effusion. No pneumothorax. Heart/Mediastinum: Unremarkable. No cardiomegaly. Bones/joints: Unremarkable. IMPRESSION: Patchy opacities in both lung bases may represent atelectasis or pneumonia..
--- NOTE | 2021-01-29 11:12 | HMH.EDGENADL ---
ED Disposition Clinical Impression: Blood loss anemia, Elevated troponin, Upper abdominal pain, Pleural effusion, bilateral, Peripheral edema Dyspnea Qualifiers: Dyspnea type: shortness of breath Qualified Code(s): R06.02 - Shortness of breath Liver cancer Qualifiers: Liver malignancy type: unspecified liver malignancy Qualified Code(s): C22.9 - Malignant neoplasm of liver, not specified as primary or secondary Ascites Qualifiers: Ascites type: malignant Qualified Code(s): R18.0 - Malignant ascites Disposition: Admitted as Observation Condition on Discharge: Serious Instructions: DI for Acute Abdominal Pain Referrals: Silvino Guthrie MD [Primary Care Provider] - - Critical Care Critical Care Time: No Attestation: On 01/29/21, the high probability of a clinically significant, sudden or life threatening deterioration of the following system(s) required my full and direct attention, intervention and personal management. The time I documented below is in addition to time spent performing reported procedures but includes the following listed in this critical care notation. Medical Decision Making - Jeff Inquiry Pt receiving controlled substance: No Vital Signs: 01/29/21 10:43 01/29/21 12:30 01/29/21 13:00 Temperature 98.3 F Temperature Source Oral Pulse Rate 96 H 93 H Pulse Rate [Right] 89 Respiratory Rate 19 16 18 Blood Pressure 108/46 L 105/58 L Blood Pressure [Right Arm] 115/69 Blood Pressure Mean 56 67 Blood Pressure Mean [Right Arm] 84 02 Sat by Pulse Oximetry 99 98 98 - Lab Data Lab Results 01/29/21 11:26: WBC 6.2, RBC 2.31 L, Hgb 7.5 L, Hct 23.8 L, MCV 103.1 H, MCH 32.5 H, MCHC 31.5 L, RDW 15.6, Plt Count 225, MPV 9.0, Neut % (Auto) 81.8 H, Lymph % (Auto) 9.7 L, [place] % (Auto) 5.8, Eos % (Auto) 2.0, Baso % (Auto) 0.6, Neut # (Auto) 5.0, Lymph # (Auto) 0.6 L, [place] # (Auto) 0.4, Eos # (Auto) 0.1, Baso # (Auto) 0.0 01/29/21 11:26: Sodium 135 L, Potassium 4.2, Chloride 105, Carbon Dioxide 22, Anion Gap 12.2, BUN 18, Creatinine 0.60 L, Estimated Creat Clear 114, Estimated GFR 132, Est GFR ( Amer) 160, Glucose 182 H, Calcium 8.4, Total Bilirubin 1.7 H, AST 60 H, ALT 32, Alkaline Phosphatase 93, Troponin I 2.20 H, Total Protein 5.3 L, Albumin 2.9 L, Globulin 2.4, Albumin/Globulin Ratio 1.2 01/29/21 11:26: NT-Pro-B Natriuret Pep 655 H 01/29/21 11:26: Lipase 76 01/29/21 11:26: SARS-CoV-2 (PCR) Not detected, Influenza A Untype (PCR) Not detected, Influenza Type B (PCR) Not detected Result diagrams: 01/29/21 11:26 01/29/21 11:26 Orders (Tests/Meds): ED MEDICATIONS Discontinued Medications Generic Name Dose Route Start Last Admin Trade Name Freq PRN Reason Stop Dose Admin Iopamidol 70 ml 01/29/21 12:24 01/29/21 12:26 Iopamidol-370 (76%);100ml Bottle IV 01/29/21 12:25 70 ml ONCE ONE Administration Sodium Chloride 50 ml 01/29/21 12:24 01/29/21 12:26 0.9 % Sodium Chloride 50 Ml Vial IV 01/29/21 12:25 50 ml ONCE ONE Administration Sodium Chloride 10 ml 01/29/21 12:24 01/29/21 12:26 Sodium Chloride 0.9% 10ml Syr (Rad Only) IV 01/29/21 12:25 10 ml ONCE ONE Administration ORDERS Category Date Time Status Type and Screen Stat BBK 01/29/21 13:08 Received Troponin I Q3H Lab 01/29/21 14:30 Ordered Troponin I Q3H Lab 01/29/21 17:30 Ordered Urinalysis-Acute [Urinalysis and Microscopic] Stat Lab 01/29/21 11:07 Ordered - Radiology Data #1 Image(s): Chest Image Reviewed: Yes I have reviewed radiologist's interpretation PROCEDURE INFORMATION: Exam: XR Chest Exam date and time: 01/29/2021 11:05 AM Age: 75 years old Clinical indication: Shortness of breath and other: Weakness TECHNIQUE: Imaging protocol: XR of the chest. Views: 1 view. COMPARISON: CT ANGIO CHEST PE PROTOCOL 01/29/2021 12:05 PM FINDINGS: Lungs: Patchy opacities in both lung bases may represent atelectasis or pneumonia.. Pleural spaces
[2021-01-29 11:32] LABS: Coronavirus 19, PCR Not Detected (NotDetected); Influenza A, PCR Not Detected (NotDetected); Influenza B, PCR Not Detected (NotDetected)
[2021-01-29 11:40] LABS: Chloride 105 mmol/L (98-107); Potassium 4.2 mmoL/L (3.5-5.1); Sodium 135 mmol/L (136-145)
--- NOTE | 2021-01-29 11:41 | ECG_ITS ---
APPROVED REPORT Exam: Resting ECG HR:87 bpm ECG Measurements Heart Rate 87 AXES GA 240 P QRSd 96 QRS -54 QT 394 T 129 QTc 474 Conclusion Sinus rhythm with 1st degree AV block with frequent premature ventricular complexes Left axis deviation Anteroseptal infarct, age undetermined ST & T wave abnormality, consider inferolateral ischemia Abnormal ECG Electronically signed by : Silvino Mojica MD 01/31/2021 12:21:15
[2021-01-29 11:43] LABS: Alanine Aminotransferase 32 U/L (12-78); Albumin Level 2.9 g/dl (3.5-5.0); Albumin/Globulin Ratio 1.2 (1.1-1.8); Alkaline Phosphatase 93 U/L (38-126); Anion Gap 12.2 mEq/L (5-15); Aspartate Amino Transferase 60 U/L (17-59); Bilirubin,Total 1.7 mg/dl (0.2-1.3); Blood Urea Nitrogen 18 mg/dl (9-20); Calcium 8.4 mg/dl (8.4-10.2); Carbon Dioxide 22 mmol/L (22.0-30.0); Creatinine Clearance Estimated 114 mL/min (50-200); Estimated Glomerular Filt Rate 132 ml/min (>60); GFR (African American) 160 ML/MIN (>60); Globulin 2.4 g/dL (1.3-3.2); Glucose 182 mg/dl (74-100); Lipase 76 U/L (23-300); Total Protein,Serum 5.3 g/dl (6.3-8.2)
--- NOTE | 2021-01-29 11:46 | CT_ITS ---
PROCEDURE INFORMATION: Exam: CTA Chest With Contrast Exam date and time: 01/29/2021 11:46 AM Age: 75 years old Clinical indication: Shortness of breath; Additional info: SOA, right leg swelling, R/O pe-- has a known liver cancer TECHNIQUE: Imaging protocol: Computed tomographic angiography of the chest with contrast. 3D rendering (Not supervised by radiologist): MIP and/or 3D reconstructed images were created by the technologist. Radiation optimization: All CT scans at this facility use at least one of these dose optimization techniques: automated exposure control; mA and/or kV adjustment per patient size (includes targeted exams where dose is matched to clinical indication); or iterative reconstruction. Contrast material: ISOVUE; Contrast volume: 70 ml; Contrast route: INTRAVENOUS (IV); COMPARISON: CHESTWO CT chest wo con 01/07/2018 10:05 AM FINDINGS: Tubes, catheters and devices: MediPort terminates in the right atrium Pulmonary arteries: No evidence of pulmonary embolus to the segmental level. Aorta: No aneurysm of the aorta. No dissection of the aorta. Lungs: Consolidation in the lower lobes may represent atelectasis or pneumonia.. Pleural spaces: Large bilateral pleural effusions.. Heart: Coronary artery calcifications may indicate coronary artery disease. Lymph nodes: Unremarkable. No enlarged lymph nodes. Bones/joints: Unremarkable. No acute fracture. Soft tissues: Unremarkable. Other findings: Please refer to the report for the CT abdomen pelvis for findings in this region. IMPRESSION: 1. No evidence of pulmonary embolus to the segmental level. 2. No aneurysm of the aorta. 3. No dissection of the aorta. 4. Large bilateral pleural effusions.. 5. Consolidation in the lower lobes may represent atelectasis or pneumonia..
--- NOTE | 2021-01-29 11:46 | CT_ITS ---
PROCEDURE INFORMATION: Exam: CT Abdomen And Pelvis With Contrast Exam date and time: 01/29/2021 11:46 AM Age: 75 years old Clinical indication: Abdominal tenderness and bloating; Additional info: Abdo pain, distension-- patient has a known liver cancer-- gave contrast through his port for chest pe protocol-- it started to leak on abd scan-- some contrast present unable to redo patient is diabetic TECHNIQUE: Imaging protocol: Computed tomography of the abdomen and pelvis with contrast. Radiation optimization: All CT scans at this facility use at least one of these dose optimization techniques: automated exposure control; mA and/or kV adjustment per patient size (includes targeted exams where dose is matched to clinical indication); or iterative reconstruction. Contrast material: ISOVUE; Contrast volume: 70 ml; Contrast route: IV; COMPARISON: ABW/O MRI-ABD W/O 12/27/2016 8:56 AM FINDINGS: Liver: 12 cm heterogeneous mass in the right lobe of the liver consistent with the history of liver carcinoma.. Lobulated liver consistent with cirrhosis Gallbladder and bile ducts: Normal. No calcified stones. No ductal dilation. Pancreas: Normal. No ductal dilation. Spleen: Normal. No splenomegaly. Adrenal glands: Normal. No mass. Kidneys and ureters: 13 mm simple cyst upper pole right kidney . No follow-up imaging recommended . Stomach and bowel: Diverticulosis of the rectosigmoid. No felicia diverticulitis Appendix: No evidence of appendicitis. Intraperitoneal space: The abdomen and pelvis are incompletely imaged on this study. Moderate ascites in the abdomen and pelvis. Vasculature: Unremarkable. No abdominal aortic aneurysm. Lymph nodes: Unremarkable. No enlarged lymph nodes. Urinary bladder: Unremarkable as visualized. Reproductive: Calcifications in the prostate. The prostate is enlarged, greater than 5 cm Recommend urology consult . Bones/joints: Unremarkable. No acute fracture. Soft tissues: Unremarkable. Other findings: Please refer to the report for CT chest for findings in the chest IMPRESSION: 1. 12 cm heterogeneous mass in the right lobe of the liver consistent with the history of liver carcinoma.. 2. Moderate ascites in the abdomen and pelvis. 3. Calcifications in the prostate. The prostate is enlarged, greater than 5 cm Recommend urology consult . COMMENTS: Consistent with the [employer]'s Incidental Findings Committee white paper (J Am Astrid Radiol 2018): Any incidental renal lesion less than 1 cm or classified as too small to characterize, or any incidental cystic renal lesion characterized as simple-appearing, is likely benign. No follow-up imaging is recommended for these lesions per consensus recommendations based on imaging criteria.
[2021-01-29 11:53] LABS: NT Pro Brain Natriuretic Pep. 655 pg/mL (0-125)
[2021-01-29 11:56] LABS: Basophils % 0.6 % (0.1-2.0); Eosinophils # 0.1 K/mm3 (0.0-0.4); Hematocrit 23.8 % (42.0-52.0); Hemoglobin 7.5 g/dL (14.1-18.0); Lymphocytes # 0.6 K/mm3 (0.7-4.5); Lymphocytes % 9.7 % (10-50); Mean Corpuscular HGB Conc 31.5 g/dL (31.8-35.4); Mean Corpuscular Hemoglobin 32.5 pg (27.0-31.2); Mean Corpuscular Volume 103.1 fl (80-94); Monocytes # 0.4 K/mm3 (0.1-1.0); Monocytes % 5.8 % (1.7-9.3); Neutrophils % 81.8 % (37.0-80.0); Platelet Count 225 K/mm3 (142-424); Red Blood Count 2.31 M/mm3 (4.60-6.20); Red Cell Distribution Width 15.6 % (11.5-17.5); White Blood Count 6.2 K/mm3 (4.8-10.8)
--- NOTE | 2021-01-29 11:57 | PC.NURSE ---
trop 2.20 reported to
--- NOTE | 2021-01-29 15:20 | PC.NURSE ---
pt arrived to room 216 @ 1520 via wheelchair from ED. is present. Pt changed into hospital gown and connected to tele monitor.
--- NOTE | 2021-01-29 15:23 | PC.NURSE ---
pt arrived to the floor at this time
--- NOTE | 2021-01-29 16:01 | PC.NURSE ---
2317- spoke to david in lab w/ critical troponin of 1.90/ verified name, and room number 1559- spoke to MD Mojica, on-call for MD Guthrie. Per MD, cancel all future troponins
[2021-01-30] VITALS (9 sets, daily range): BP systolic 93–154; BP diastolic 48–67; PULSE 90–107; RESP 12–20; TEMP 36.8–37.4; O2SAT 93–98; BMI 38.5
[2021-01-30 02:41] LABS: Hematocrit 26.8 % (42.0-52.0)
--- NOTE | 2021-01-30 04:15 | PC.NURSE ---
Pt. reports soa with movement, intermittent nonproductive dry cough and has had one episode of nausea; zofran alleviated nausea. Tolerated transfusions. ABD tender to ruq and round.
--- NOTE | 2021-01-30 07:23 | P.CONPHA_ITS ---
[facility] Pharmacy VTE Monitoring - Patient Demographics Admission date: 01/29/21 Report Date: 01/30/21 Allergies/Adverse Reactions: Patient Allergies codeine Allergy (Mild, Verified 01/29/21 14:14) Sulfa (Sulfonamide Antibiotics) [SULFA (SULFONAMIDE ANTIBIOTICS)] Allergy (Unknown, Verified 01/29/21 14:14) Height: 1.85 m Weight: 131.74 kg Patient Problems: Current Active Problems Blood loss anemia (Acute) Elevated troponin (Acute) Upper abdominal pain (Acute) Liver cancer (Acute) Pleural effusion, bilateral (Acute) Ascites (Acute) Peripheral edema (Acute) Dyspnea (Chronic) - VTE Risk Labs: VTE Related Lab Results Hgb 9.0 g/dL (14.1-18.0) L D 01/30/21 02:00 Hct 26.8 % (42.0-52.0) L 01/30/21 02:00 Plt Count 225 K/mm3 (142-424) 01/29/21 11:26 BUN 18 mg/dl (9-20) 01/29/21 11:26 Creatinine 0.60 mg/dl (0.66-1.25) L 01/29/21 11:26 Estimated Creat Clear 114 mL/min (50-200) 01/29/21 11:26 Was VTE Risk Assessment Performed: Yes VTE Score: 4 VTE Risk Level: Low Risk Clinical Trial Participant: No - Prophylaxis VTE Prophylaxis Ordered?: Yes Types of VTE Prophylaxis: TEDS Knee High
[2021-01-30 07:31] LABS: Basophils % 0.2 % (0.1-2.0); Eosinophils # 0.2 K/mm3 (0.0-0.4); Eosinophils % 2.9 % (0.1-12.0); Hematocrit 26.2 % (42.0-52.0); Hemoglobin 8.6 g/dL (14.1-18.0); Lymphocytes # 0.7 K/mm3 (0.7-4.5); Lymphocytes % 12.3 % (10-50); Mean Corpuscular HGB Conc 32.8 g/dL (31.8-35.4); Mean Corpuscular Hemoglobin 31.8 pg (27.0-31.2); Mean Platelet Volume 8.9 fl (7.4-10.4); Monocytes # 0.4 K/mm3 (0.1-1.0); Monocytes % 7.9 % (1.7-9.3); Neutrophils # 4.1 K/mm3 (1.8-7.8); Neutrophils % 76.7 % (37.0-80.0); Platelet Count 201 K/mm3 (142-424); Red Cell Distribution Width 16.5 % (11.5-17.5); White Blood Count 5.3 K/mm3 (4.8-10.8)
[2021-01-30 07:37] LABS: Alanine Aminotransferase 26 U/L (12-78); Albumin Level 2.6 g/dl (3.5-5.0); Alkaline Phosphatase 78 U/L (38-126); Anion Gap 6.8 mEq/L (5-15); Aspartate Amino Transferase 53 U/L (17-59); Bilirubin,Total 3.4 mg/dl (0.2-1.3); Blood Urea Nitrogen 17 mg/dl (9-20); Carbon Dioxide 26 mmol/L (22.0-30.0); Chloride 103 mmol/L (98-107); Creatinine Clearance Estimated 123 mL/min (50-200); Estimated Glomerular Filt Rate 132 ml/min (>60); GFR (African American) 160 ML/MIN (>60); Globulin 2.5 g/dL (1.3-3.2); Glucose 160 mg/dl (74-100); Potassium 3.8 mmoL/L (3.5-5.1); Sodium 132 mmol/L (136-145); Total Protein,Serum 5.1 g/dl (6.3-8.2)
--- NOTE | 2021-01-30 07:49 | HMH.HP ---
*Admission Date: 01/29/21 *Chief complaint: Shortness of breath *History of present illness: 75-year-old male with stage IV cholangiocarcinoma presented to the emergency department with increasing shortness of breath. Patient has known anemia from blood loss due to duodenal ulcerations and AVMs that have recently been identified as bleeding via EGD performed at in early January. Patient's last documented hemoglobin was greater than 10. Work-up in the emergency department revealed anemia with hemoglobin of 7-1/2. Because the patient's symptomatology decision was made to admit and transfuse for 2 units of packed red blood cells. Patient was incidentally found to have an elevated troponin although denied any angina symptoms. I also started the patient on a Protonix drip overnight This morning patient admits his shortness of breath is better. Echocardiogram is in progress. [facility] History I have reviewed the patient's past medical history: Yes Medical History: Reports:: Asthma, Atrial Fibrillation, BPH, Cancer (stage 4 liver caner), Diabetes Mellitus Type 2, Gastroesophageal Reflux Disease(GERD), Hyperlipidemia, Hypertension, Valvular Heart Disease Denies:: Aneurysm, Congestive Heart Failure, Chronic Obstructive Pulmonary Disease (COPD), Cerebrovascular Accident, Diabetes Mellitus Type 1, Internal Pacemaker, Lung Disease, MRSA, Myocardial Infarction, Renal Disease, Renal Insufficiency, Seizures *Have you ever received a pneumonia vaccine?: No *Have you received a flu vaccine this season?: No Other Medical History: Reports: Anemia, Arthritis, Cataracts, Liver Disease. Denies: Blood Transfusion Reaction, Hypothyroidism, Sinus Problems, Thyroid Disease Laterality Cases: Bilateral: Tonsillectomy, Other Other Surgeries: Yes: No Previous Surgery, Cancer Surgery, Cholecystectomy, Colonoscopy, EGD (Jan 2021), Other. No: Pacemaker Amputation: No Fractures: No - *Social History Smoking Status: Never smoker Alcohol Intake: never Alcohol Intake Frequency:: holidays/special occasions only Substance Use Type: denies use *Occupational Status:: retired Housing: house Household Members: spouse *Travel in the last 8 weeks: None Family Hx:: Hyperlipidemia, Hypertension, Diabetes, Heart Attack Review of Systems - Review of Systems Review of systems:: pertinent systems reviewed and negative unless documented below - *Cardiovascular Denies chest pain, Denies chest pain at rest, Denies chest pain with activity - *Respiratory Reports shortness of breath - *Gastrointestinal Reports abdominal pain, Reports bloating Meds Home Medications Medication Instructions Recorded Confirmed Type atenolol 50 mg tablet 50 mg PO QAM tab 04/22/17 01/29/21 History insulin regular human 100 unit/mL 20 unit SUB-Q BID 04/22/17 01/29/21 History injection solution lisinopril 40 mg tablet 40 mg PO ONCE 04/22/17 01/29/21 History Insulin NPH Human Isophane 70 unit SQ BID 06/17/17 01/29/21 History [Humulin N] magnesium 200 mg tablet 200 mg PO DAILY 05/08/18 01/29/21 History potassium chloride 20 mEq 1 tab PO DAILY 30 Days #60 tab 06/25/18 01/29/21 History tablet,extended release(part/cryst) aspirin 81 mg tablet,delayed 81 mg PO DAILY 09/07/19 01/29/21 History release pantoprazole 40 mg tablet,delayed 40 mg PO BID 12/21/20 01/30/21 History release Allergies Allergy/AdvReac Type Severity Reaction Status Date / Time codeine Allergy Mild Verified 01/29/21 14:14 Sulfa (Sulfonamide Allergy Unknown Verified 01/29/21 14:14 Antibiotics) [SULFA (SULFONAMIDE ANTIBIOTICS)] Exam Vital signs and Labs for Last 24 Hours: Temp Pulse Resp BP Pulse Ox 98.8 F 96 H 18 104/51 L 96 01/30/21 04:00 01/30/21 04:00 01/30/21 04:00 01/30/21 04:00 01/30/21 04:00 Laboratory Results - last 24 hr 01/29/21 11:26: WBC 6.2, RBC 2.31 L, Hgb 7.5 L, Hct 23.8 L, MCV 103.1 H, MCH 32.5 H, MCHC 31.5 L, RDW 15.6, Plt Count 225, MPV 9.0, Neut % (Auto)
[2021-01-30 14:25] LABS: Hematocrit 25.2 % (42.0-52.0); Hemoglobin 8.2 g/dL (14.1-18.0)
--- NOTE | 2021-01-30 15:00 | HMH.PHAINT ---
verified home medication list using list from Dr Guthrie' office
--- NOTE | 2021-01-30 18:30 | PC.NURSE ---
No acute changes. Remains on room air. Lungs CTA. HR regular. Abdomen soft, non-tender w/ active BS in all quads. Denies pain. Pt reports having a BM this shift, states BM's have been soft, formed and dark brown in color. He did sit up in recliner @ intervals this shift. Independent w/ ADL's. No needs voiced. Call rojas w/in reach.
[2021-01-30 22:10] LABS: Hematocrit 25.9 % (42.0-52.0); Hemoglobin 8.4 g/dL (14.1-18.0)
[2021-01-31] VITALS (29 sets, daily range): BP systolic 77–130; BP diastolic 34–81; PULSE 68–100; RESP 16–18; TEMP 36.2–37.2; O2SAT 90–99; BMI 37.8
[2021-01-31 06:42] LABS: Alanine Aminotransferase 19 U/L (12-78); Albumin Level 2.5 g/dl (3.5-5.0); Alkaline Phosphatase 73 U/L (38-126); Anion Gap 5.8 mEq/L (5-15); Aspartate Amino Transferase 45 U/L (17-59); Blood Urea Nitrogen 19 mg/dl (9-20); Calcium 8.1 mg/dl (8.4-10.2); Carbon Dioxide 28 mmol/L (22.0-30.0); Chloride 104 mmol/L (98-107); Creatinine Clearance Estimated 121 mL/min (50-200); Estimated Glomerular Filt Rate 111 ml/min (>60); GFR (African American) 134 ML/MIN (>60); Globulin 2.4 g/dL (1.3-3.2); Glucose 161 mg/dl (74-100); Potassium 3.8 mmoL/L (3.5-5.1); Sodium 134 mmol/L (136-145); Total Protein,Serum 4.9 g/dl (6.3-8.2)
[2021-01-31 06:46] LABS: Basophils % 0.6 % (0.1-2.0); Eosinophils # 0.2 K/mm3 (0.0-0.4); Eosinophils % 4.4 % (0.1-12.0); Hematocrit 25.3 % (42.0-52.0); Hemoglobin 8.2 g/dL (14.1-18.0); Lymphocytes # 0.7 K/mm3 (0.7-4.5); Lymphocytes % 13.9 % (10-50); Mean Corpuscular HGB Conc 32.5 g/dL (31.8-35.4); Mean Corpuscular Hemoglobin 31.4 pg (27.0-31.2); Mean Corpuscular Volume 96.5 fl (80-94); Monocytes # 0.4 K/mm3 (0.1-1.0); Monocytes % 8.4 % (1.7-9.3); Neutrophils # 3.7 K/mm3 (1.8-7.8); Neutrophils % 72.7 % (37.0-80.0); Platelet Count 182 K/mm3 (142-424); Red Blood Count 2.63 M/mm3 (4.60-6.20); Red Cell Distribution Width 16.3 % (11.5-17.5)
--- NOTE | 2021-01-31 07:21 | HMH.ACPN2 ---
Internal Medicine - PN: Subj *Date: 01/31/21 *Time: 07:21 Interval history: No complaints this morning and no changes over the last 24 hours. Patient's H&H declined slightly throughout the day yesterday and seems to have stabilized overnight. Patient reports improvement in shortness of breath. Had a discussion with patient's microscopist at . Patient's AVMs that have been treated in early January have a high chance of developing ulcers. Due to the perceived ongoing bleeding and the on-call surgeon was consulted for EGD today Exam Vital signs and Labs for Last 24 Hours: Temp Pulse Resp BP Pulse Ox 97.8 F 68 16 110/73 96 01/31/21 04:00 01/31/21 04:00 01/31/21 04:00 01/31/21 04:00 01/31/21 04:00 Laboratory Results - last 24 hr 01/30/21 05:42: WBC 5.3, RBC 2.70 L, Hgb 8.6 L, Hct 26.2 L, MCV 97.0 H, MCH 31.8 H, MCHC 32.8, RDW 16.5, Plt Count 201, MPV 8.9, Neut % (Auto) 76.7, Lymph % (Auto) 12.3, Grainger % (Auto) 7.9, Eos % (Auto) 2.9, Baso % (Auto) 0.2, Neut # (Auto) 4.1, Lymph # (Auto) 0.7, Grainger # (Auto) 0.4, Eos # (Auto) 0.2, Baso # (Auto) 0.0 01/30/21 05:42: Sodium 132 L, Potassium 3.8, Chloride 103, Carbon Dioxide 26, Anion Gap 6.8, BUN 17, Creatinine 0.60 L, Estimated Creat Clear 123, Estimated GFR 132, Est GFR ( Amer) 160, Glucose 160 H, Calcium 8.0 L, Total Bilirubin 3.4 H, AST 53, ALT 26, Alkaline Phosphatase 78, Total Protein 5.1 L, Albumin 2.6 L D, Globulin 2.5, Albumin/Globulin Ratio 1.0 L 01/30/21 14:07: Hgb 8.2 L, Hct 25.2 L 01/30/21 21:58: Hgb 8.4 L, Hct 25.9 L 01/31/21 06:15: WBC 5.0, RBC 2.63 L, Hgb 8.2 L, Hct 25.3 L, MCV 96.5 H, MCH 31.4 H, MCHC 32.5, RDW 16.3, Plt Count 182, MPV 9.0, Neut % (Auto) 72.7, Lymph % (Auto) 13.9, Grainger % (Auto) 8.4, Eos % (Auto) 4.4, Baso % (Auto) 0.6, Neut # (Auto) 3.7, Lymph # (Auto) 0.7, Grainger # (Auto) 0.4, Eos # (Auto) 0.2, Baso # (Auto) 0.0 01/31/21 06:15: Sodium 134 L, Potassium 3.8, Chloride 104, Carbon Dioxide 28, Anion Gap 5.8, BUN 19, Creatinine 0.70, Estimated Creat Clear 121, Estimated GFR 111, Est GFR ( Amer) 134, Glucose 161 H, Calcium 8.1 L, Total Bilirubin 2.0 H, AST 45, ALT 19 D, Alkaline Phosphatase 73, Total Protein 4.9 L, Albumin 2.5 L, Globulin 2.4, Albumin/Globulin Ratio 1.0 L I & O for Last 24 hours: Intake & Output 01/28/21 01/29/21 01/30/21 01/31/21 11:59 11:59 11:59 11:59 Intake Total 980 / 980 600 / 600 Balance 980 / 980 600 / 600 Weight 270 lb 290 lb 7 oz 285 lb 11.505 oz - Constitutional no acute distress - *Routine Respiratory Exam Present: CTA bilaterally, distant breath sounds (At bases) - *Routine Cardiovascular Exam Present: RRR - *Routine Abdominal Exam Present: soft, normoactive bowel sounds. Absent: tenderness Assessment and Plan (1) Cholangiocarcinoma Status: Acute Category: Medical Code(s): C22.1 - Intrahepatic bile duct carcinoma (2) Blood loss anemia Status: Acute Category: Medical Code(s): D50.0 - Iron deficiency anemia secondary to blood loss (chronic) (3) Elevated troponin Status: Acute Category: Medical Code(s): R77.8 - Other specified abnormalities of plasma proteins (4) Pleural effusion, bilateral Status: Acute Category: Medical Code(s): J90 - Pleural effusion, not elsewhere classified (5) Charcot foot due to diabetes mellitus Status: Acute Category: Medical Code(s): E11.610 - Type 2 diabetes mellitus with diabetic neuropathic arthropathy (6) Coronary artery calcification seen on CAT scan Status: Chronic Category: Medical Code(s): I25.10 - Atherosclerotic heart disease of [place] coronary artery without angina pectoris (7) Obesity (BMI 30-39.9) Status: Chronic Category: Medical Code(s): E66.9 - Obesity, unspecified (8) Upper GI bleed Status: Acute Category: Medical Code(s): K92.2 - Gastrointestinal hemorrhage, unspecified - Assessment and plan all Dx Assessment and Plan for all problems:: 1. EGD today 2. We will rep
--- NOTE | 2021-01-31 10:14 | HMH.ANESCL ---
[facility] Anesthesia Checklist - Patient Identification Patient Identification: Arm Band - Structural Data Admitted From: Home Planned Operative Procedure/s: egd Consent for Planned Operative Procedure(s) Verified: Yes Verified Documents: Surgical Consent, History and Physical - NPO Status Verified Time NPO: 00:00 - Additional verifications Anesthesia Reactions: No Hx Blood Transfusions: No Blood Transfusion Reaction: No - Airway Assessment C-Spine Mobility Assessed: Yes (mp2) TMJ Mobility Assessed: Yes Dentition: Good Dentition - Neurological Assessment Level of Consciousness: Awake, Alert - Anesthesia Plan Anesthesia Risk discussed: Yes Anesthesia Plan: Verified ASA Class: III Anesthesia Type: MAC [facility] History I have reviewed the patient's past medical history: Yes Medical History: Reports:: Asthma, Atrial Fibrillation, BPH, Cancer (stage 4 liver caner), Diabetes Mellitus Type 2, Gastroesophageal Reflux Disease(GERD), Hyperlipidemia, Hypertension, Valvular Heart Disease Denies:: Aneurysm, Congestive Heart Failure, Chronic Obstructive Pulmonary Disease (COPD), Cerebrovascular Accident, Diabetes Mellitus Type 1, Internal Pacemaker, Lung Disease, MRSA, Myocardial Infarction, Renal Disease, Renal Insufficiency, Seizures *Have you ever received a pneumonia vaccine?: No *Have you received a flu vaccine this season?: No Other Medical History: Reports: Anemia, Arthritis, Cataracts, Liver Disease. Denies: Blood Transfusion Reaction, Hypothyroidism, Sinus Problems, Thyroid Disease Anesthesia experience/problems:: nac Laterality Cases: Bilateral: Tonsillectomy, Other Other Surgeries: Yes: Cancer Surgery, Cholecystectomy, Colonoscopy, EGD (Jan 2021), Other. No: Pacemaker Amputation: No Fractures: No - *Social History Smoking Status: Never smoker Alcohol Intake: never Alcohol Intake Frequency:: holidays/special occasions only Substance Use Type: denies use *Occupational Status:: retired Housing: house Household Members: spouse *Travel in the last 8 weeks: None Family Hx:: Hyperlipidemia, Hypertension, Diabetes, Heart Attack
--- NOTE | 2021-01-31 11:48 | HMH.GSCON ---
*Admission Date: 01/29/21 *Reason for consult:: Gastrointestinal hemorrhage *History of present illness: This is a 75-year-old gentleman who recently (January 11) underwent EGD with argon plasma coagulation of gastric and duodenal bulb AVMs at the [facility]. He presented to the emergency department at [facility] with concerns of continued/recurrent bleeding. Please see HPI from admission H&P forwarded below. Forwarded from admission H&P: 75-year-old male with stage IV cholangiocarcinoma presented to the emergency department with increasing shortness of breath. Patient has known anemia from blood loss due to duodenal ulcerations and AVMs that have recently been identified as bleeding via EGD performed at in early January. Patient's last documented hemoglobin was greater than 10. Work-up in the emergency department revealed anemia with hemoglobin of 7-1/2. Because the patient's symptomatology decision was made to admit and transfuse for 2 units of packed red blood cells. Patient was incidentally found to have an elevated troponin although denied any angina symptoms. I also started the patient on a Protonix drip overnight This morning patient admits his shortness of breath is better. Echocardiogram is in progress. Review of Systems - Constitutional Denies chills - ENT Denies difficulty swallowing - *Cardiovascular Denies chest pain [facility] History Medical History: Reports:: Asthma, Atrial Fibrillation, BPH, Cancer (stage 4 liver caner), Diabetes Mellitus Type 2, Gastroesophageal Reflux Disease(GERD), Hyperlipidemia, Hypertension, Valvular Heart Disease Denies:: Aneurysm, Congestive Heart Failure, Chronic Obstructive Pulmonary Disease (COPD), Cerebrovascular Accident, Diabetes Mellitus Type 1, Internal Pacemaker, Lung Disease, MRSA, Myocardial Infarction, Renal Disease, Renal Insufficiency, Seizures *Have you ever received a pneumonia vaccine?: No *Have you received a flu vaccine this season?: No Other Medical History: Reports: Anemia, Arthritis, Cataracts, Liver Disease. Denies: Blood Transfusion Reaction, Hypothyroidism, Sinus Problems, Thyroid Disease Anesthesia experience/problems:: nac Laterality Cases: Bilateral: Tonsillectomy, Other Other Surgeries: Yes: No Previous Surgery, Cancer Surgery, Cholecystectomy, Colonoscopy, EGD (Jan 2021), Other. No: Pacemaker Amputation: No Fractures: No - *Social History Smoking Status: Never smoker Alcohol Intake: never Alcohol Intake Frequency:: holidays/special occasions only Substance Use Type: denies use *Occupational Status:: retired Housing: house Household Members: spouse *Travel in the last 8 weeks: None Family Hx:: Hyperlipidemia, Hypertension, Diabetes, Heart Attack Meds Home Medications Medication Instructions Recorded Confirmed Type atenolol 50 mg tablet 50 mg PO DAILY tab 04/22/17 01/30/21 History insulin regular human 100 unit/mL 20 unit SUB-Q BID 04/22/17 01/30/21 History injection solution lisinopril 40 mg tablet 40 mg PO DAILY 04/22/17 01/30/21 History Insulin NPH Human Isophane 70 unit SQ BID 06/17/17 01/29/21 History [Humulin N] magnesium 200 mg tablet 200 mg PO DAILY 05/08/18 01/29/21 History potassium chloride 20 mEq 20 meq PO DAILY 30 Days #60 tab 06/25/18 01/30/21 History tablet,extended release(part/cryst) pantoprazole 40 mg tablet,delayed 40 mg PO BID 12/21/20 01/30/21 History release Allergies Allergy/AdvReac Type Severity Reaction Status Date / Time codeine Allergy Mild Verified 01/29/21 14:14 Sulfa (Sulfonamide Allergy Unknown Verified 01/29/21 14:14 Antibiotics) [SULFA (SULFONAMIDE ANTIBIOTICS)] Exam Vital signs and Labs for Last 24 Hours: Temp Pulse Resp BP Pulse Ox 98.5 F 100 H 16 94/52 L 96 01/31/21 08:00 01/31/21 08:00 01/31/21 08:00 01/31/21 08:00 01/31/21 08:00 Laboratory Results - last 24 hr 01/30/21 14:07: Hgb 8.2 L, Hct 25.2 L 01/30/21 21:58: Hgb 8.
--- NOTE | 2021-01-31 12:21 | HMH.SCOPE ---
- Procedure: Date: 01/31/21 Patient Date of :: 1945 Procedure Performed:: Esophagogastroduodenoscopy with argon plasma coagulation of friable distal gastric mucosa Indications:: Upper gastrointestinal hemorrhage Recent EGD with argon plasma coagulation of friable mucosa/AVMs in antrum/duodenal bulb Performing Provider:: Nate Moore MD Referring Provider:: Dr. Guthrie Sedation:: Monitored anesthesia care Procedure:: After informed consent was obtained the patient was taken to the endoscopy suite. Sedation ensued after the patient was transferred to the left lateral decubitus position. Pulse, blood pressure, and oxygen saturation were monitored throughout the procedure. The endoscope was advanced beyond the duodenal bulb. Retroflexion within the gastric lumen was accomplished. The gastroscope was carefully removed and the patient was transferred to recovery in stable condition. Please see findings and specimens below for detail. Findings:: No sign of active bleeding or old blood within gastric lumen or duodenum Friable/inflamed antral and duodenal mucosa Patchy sanguinous ooze of antral mucosa noted after scope manipulation Argon plasma coagulation of antral mucosa completed Specimens:: None Recommendations:: Continued follow-up as scheduled with his primary care provider and with his insulation worker at [facility] Complications:: No immediate Estimated blood obtained (mL): 5
[2021-01-31 23:19] LABS: Hematocrit 29.4 % (42.0-52.0)
[2021-01-31 23:26] LABS: Hemoglobin 9.5 g/dL (14.1-18.0)
--- NOTE | 2021-02-01 07:39 | HMH.DCSUM ---
General - General Admission date:: 01/30/21 Discharge date: 01/31/21 HPI HPI: 75-year-old male with stage IV cholangiocarcinoma presented to the emergency department with increasing shortness of breath. Patient has known anemia from blood loss due to duodenal ulcerations and AVMs that have recently been identified as bleeding via EGD performed at in early January. Patient's last documented hemoglobin was greater than 10. Work-up in the emergency department revealed anemia with hemoglobin of 7-1/2. Because the patient's symptomatology decision was made to admit and transfuse for 2 units of packed red blood cells. Patient was incidentally found to have an elevated troponin although denied any angina symptoms. I also started the patient on a Protonix drip overnight This morning patient admits his shortness of breath is better. Echocardiogram is in progress. Hospital Course Hospital Course: Patient was admitted and transfused 2 units of packed red blood cells with good initial response with hemoglobin rise from 7.5-9. After transfusion however hemoglobin gradually trickled back down and stabilized at 8.2. Due to the declining H&H general surgery was consulted for EGD. Patient underwent EGD on 1122. There were no findings of active bleeding. There was some areas of slough likely from prior procedure 2-week earlier. Patient did have APC to a single oozing area. Patient's H&H remained stable from that point on. Patient had profound dyspnea on exertion with findings of bilateral pleural effusions on presentation with elevated troponin. Echocardiogram was performed. Result was obtained late in the afternoon on January 31 with findings of depressed ejection fraction of 20 to 30% as well as suspected bilateral ventricular thrombus. Contacted [facility] cardiology regarding the findings and whether or not to proceed with anticoagulation. Due to the patient's overall poor prognosis with a stage IV cholangiocarcinoma, upper GI bleed with high likelihood of recurring bleeding decision was made to avoid all anticoagulation and treat medically. Patient's beta-lucy was changed to carvedilol and lisinopril will be discontinued in favor of Entresto. Patient is stage IV cholangiocarcinoma and I spoke with his foam molder repeatedly during hospitalization with updates. Because of the cardiomyopathy and anemia patient was given an additional unit of packed red blood cells and discharged home later in the evening on the . Patient to have repeat CBC as an outpatient on February 02. 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 Status: Acute (6) Coronary artery calcification seen on CAT scan Status: Chronic (7) Obesity (BMI 30-39.9) Status: Chronic (8) Upper GI bleed Status: Acute Discharge Plan - Patient Discharge Instructions Additional Instructions: Do not begin taking Entresto until tomorrow evening Patient Instructions: Anemia, DI for Liver Cancer, Gastrointestinal Bleeding - Follow up Plan Follow up with: Silvino Guthrie MD [Primary Care Provider] - Disposition: Home, Self-Care Condition at discharge:: Stable Home Medications: Home Medications Medication Instructions Recorded Confirmed Type insulin regular human 100 unit/mL 20
== END 2021-01-31 23:12 | disposition home or self-care (01) | DRG 378 ==
LOC: ER 14:04 → 2ND 14:42
PROVIDERS: Surgery; Admitting Provider Internal Medicine Adolescent Medicine; Emergency Provider Emergency Medicine; PCP Family Medicine; Visit Provider Family Medicine
PROC: 0DJ08ZZ Inspection of Upper Intestinal Tract, Via Natural or Artificial Opening Endoscopic (ICD-10-PCS; CPT 43235; principal; 2021-01-31 11:00)
DX: K92.2 Gastrointestinal hemorrhage, unspecified (principal); C22.1 Intrahepatic bile duct carcinoma; R18.0 Malignant ascites; I42.9 Cardiomyopathy, unspecified; D62 Acute posthemorrhagic anemia; Q27.33 Arteriovenous malformation of digestive system vessel; I48.91 Unspecified atrial fibrillation; I11.0 Hypertensive heart disease with heart failure; Z20.822 Contact with and (suspected) exposure to COVID-19; E11.9 Type 2 diabetes mellitus without complications; Z79.4 Long term (current) use of insulin; E11.610 Type 2 diabetes mellitus with diabetic neuropathic arthropathy; R77.8 Other specified abnormalities of plasma proteins; K26.9 Duodenal ulcer, unspecified as acute or chronic, without hemorrhage or perforation
CPT/HCPCS: 43255; 70450; 71045; 71275; 74177; 80053; 83690; 83880; 84484; 85014; 85018; 85025; 86850; 93005; 93306; 96375; 99284; C2618; C9803; G0378; J1642; J2405; P9016; Q9967; U0003; U0005

== ENCOUNTER → 2021-02-02 09:55 | Outpatient (CLI) | payer MEDICARE, BC, SELFPAY ==
[2021-02-02 10:43] LABS: Basophils % 0.4 % (0.1-2.0); Eosinophils # 0.2 K/mm3 (0.0-0.4); Eosinophils % 2.8 % (0.1-12.0); Hematocrit 32.2 % (42.0-52.0); Lymphocytes # 0.6 K/mm3 (0.7-4.5); Lymphocytes % 11.8 % (10-50); Mean Corpuscular HGB Conc 31.2 g/dL (31.8-35.4); Mean Corpuscular Hemoglobin 30.8 pg (27.0-31.2); Mean Corpuscular Volume 98.7 fl (80-94); Mean Platelet Volume 8.8 fl (7.4-10.4); Monocytes # 0.3 K/mm3 (0.1-1.0); Monocytes % 6.3 % (1.7-9.3); Neutrophils # 4.2 K/mm3 (1.8-7.8); Neutrophils % 78.8 % (37.0-80.0); Platelet Count 180 K/mm3 (142-424); Red Blood Count 3.26 M/mm3 (4.60-6.20); Red Cell Distribution Width 17.1 % (11.5-17.5); White Blood Count 5.4 K/mm3 (4.8-10.8)
== END ==
PROVIDERS: Visit Provider Family Medicine
DX: K92.2 Gastrointestinal hemorrhage, unspecified (principal)
CPT/HCPCS: 36415; 85025

== ENCOUNTER → 2021-02-06 13:20 | Outpatient (CLI) | payer MEDICARE, BC, SELFPAY ==
[2021-02-06 14:03] LABS: Basophils % 0.5 % (0.1-2.0); Eosinophils # 0.4 K/mm3 (0.0-0.4); Eosinophils % 5.6 % (0.1-12.0); Hematocrit 34.5 % (42.0-52.0); Hemoglobin 10.8 g/dL (14.1-18.0); Lymphocytes # 0.8 K/mm3 (0.7-4.5); Lymphocytes % 12.9 % (10-50); Mean Corpuscular HGB Conc 31.3 g/dL (31.8-35.4); Mean Corpuscular Hemoglobin 29.9 pg (27.0-31.2); Mean Corpuscular Volume 95.3 fl (80-94); Mean Platelet Volume 8.7 fl (7.4-10.4); Monocytes # 0.4 K/mm3 (0.1-1.0); Monocytes % 6.5 % (1.7-9.3); Neutrophils # 4.6 K/mm3 (1.8-7.8); Neutrophils % 74.5 % (37.0-80.0); Platelet Count 230 K/mm3 (142-424); Red Blood Count 3.61 M/mm3 (4.60-6.20); White Blood Count 6.2 K/mm3 (4.8-10.8)
== END ==
PROVIDERS: Visit Provider Family Medicine
DX: C22.1 Intrahepatic bile duct carcinoma (principal)
CPT/HCPCS: 36415; 85025

== ENCOUNTER → 2021-02-13 13:49 | Outpatient (CLI) | payer MEDICARE, BC, SELFPAY ==
[2021-02-13 14:20] LABS: Basophils % 0.7 % (0.1-2.0); Eosinophils # 0.3 K/mm3 (0.0-0.4); Eosinophils % 5.4 % (0.1-12.0); Hematocrit 31.7 % (42.0-52.0); Hemoglobin 9.7 g/dL (14.1-18.0); Lymphocytes # 0.8 K/mm3 (0.7-4.5); Lymphocytes % 13.9 % (10-50); Mean Corpuscular HGB Conc 30.6 g/dL (31.8-35.4); Mean Corpuscular Hemoglobin 28.2 pg (27.0-31.2); Mean Platelet Volume 7.8 fl (7.4-10.4); Monocytes # 0.4 K/mm3 (0.1-1.0); Monocytes % 7.6 % (1.7-9.3); Neutrophils % 72.4 % (37.0-80.0); Platelet Count 251 K/mm3 (142-424); Red Blood Count 3.45 M/mm3 (4.60-6.20); Red Cell Distribution Width 15.9 % (11.5-17.5); White Blood Count 5.6 K/mm3 (4.8-10.8)
== END ==
PROVIDERS: Visit Provider Family Medicine
DX: D50.0 Iron deficiency anemia secondary to blood loss (chronic) (principal)
CPT/HCPCS: 36415; 85025

== ENCOUNTER → 2021-02-16 10:30 | Outpatient (CLI) | payer MEDICARE, BC, SELFPAY ==
[2021-02-16 11:04] LABS: Basophils % 0.6 % (0.1-2.0); Eosinophils # 0.3 K/mm3 (0.0-0.4); Eosinophils % 4.7 % (0.1-12.0); Hematocrit 31.3 % (42.0-52.0); Hemoglobin 9.6 g/dL (14.1-18.0); Lymphocytes # 0.8 K/mm3 (0.7-4.5); Lymphocytes % 11.3 % (10-50); Mean Corpuscular HGB Conc 30.7 g/dL (31.8-35.4); Mean Corpuscular Hemoglobin 28.5 pg (27.0-31.2); Mean Corpuscular Volume 92.8 fl (80-94); Mean Platelet Volume 8.4 fl (7.4-10.4); Monocytes # 0.4 K/mm3 (0.1-1.0); Monocytes % 6.4 % (1.7-9.3); Neutrophils # 5.2 K/mm3 (1.8-7.8); Platelet Count 278 K/mm3 (142-424); Red Blood Count 3.37 M/mm3 (4.60-6.20); Red Cell Distribution Width 16.3 % (11.5-17.5); White Blood Count 6.8 K/mm3 (4.8-10.8)
[2021-02-16 12:10] LABS: Alanine Aminotransferase 30 U/L (12-78); Albumin Level 3.1 g/dl (3.5-5.0); Alkaline Phosphatase 99 U/L (38-126); Anion Gap 5.7 mEq/L (5-15); Aspartate Amino Transferase 49 U/L (17-59); Bilirubin,Direct 0.1 mg/dl (0.0-0.4); Bilirubin,Indirect 1.4 mg/dL (0.0-0.9); Bilirubin,Total 1.5 mg/dl (0.2-1.3); Bilirubin,Unconjugated 1.4 mg/dL (0.0-1.1); Blood Urea Nitrogen 18 mg/dl (9-20); Calcium 8.8 mg/dl (8.4-10.2); Carbon Dioxide 30 mmol/L (22.0-30.0); Chloride 105 mmol/L (98-107); Estimated Glomerular Filt Rate 110 ml/min (>60); GFR (African American) 133 ML/MIN (>60); Glucose 131 mg/dl (74-100); Potassium 3.7 mmoL/L (3.5-5.1); Sodium 137 mmol/L (136-145); Total Protein,Serum 5.5 g/dl (6.3-8.2)
[2021-02-16 14:13] LABS: Coronavirus 19, PCR Not Detected (NotDetected); Influenza A, PCR Not Detected (NotDetected); Influenza B, PCR Not Detected (NotDetected)
== END ==
PROVIDERS: Internal Medicine; PCP Family Medicine; Visit Provider Nurse Practitioner Family
DX: R07.9 Chest pain, unspecified (principal); S91.319A Laceration without foreign body, unspecified foot, initial encounter; Z01.818 Encounter for other preprocedural examination; Z11.52 Encounter for screening for COVID-19
CPT/HCPCS: 36415; 80048; 80076; 85025; C9803; U0003; U0005

== ENCOUNTER → 2021-02-16 11:33 | Outpatient (CLI) | payer MEDICARE, BC, SELFPAY ==
--- NOTE | 2021-02-16 11:36 | CA_ITS ---
APPROVED REPORT EXAM: Comprehensive 2D, Doppler, and color-flow Echocardiogram Drum Worker: Fabi Cardenas RT(R) Ht: 6 ft 1 in Wt: 279lbs BSA: 2.48 BP: 117/64 mmHg Indications: ? LV THROMBUS ON ECHO FROM 01/30 Echo Enhancing Agent Indication: Rule out thrombus Agent(s) / Amount(s) Used: Definity 2 cc Conclusion 1. Limited echocardiogram with Definity contrast is performed to exclude presence of left ventricular thrombus and evaluate left ventricular systolic function. 2. Left ventricle is normal size, mild concentric left ventricular hypertrophy, visually estimated ejection fraction approximately 50% with mild apical hypokinesis, there is no left ventricular thrombus seen. Electronically signed by : Josh Garcia MD 02/17/2021 16:04:50
== END ==
PROVIDERS: PCP Family Medicine; Visit Provider Nurse Practitioner Family
DX: I25.10 Atherosclerotic heart disease of native coronary artery without angina pectoris (principal); Z01.812 Encounter for preprocedural laboratory examination; Z20.822 Contact with and (suspected) exposure to COVID-19
CPT/HCPCS: 36415; 80048; 80076; 85025; 93308; C9803; Q9957; U0003; U0005

== ENCOUNTER 2021-02-17 08:46 | Day surgery (SDC) | payer MEDICARE, BC, SELFPAY ==
[2021-02-17] VITALS (11 sets, daily range): BP systolic 95–111; BP diastolic 48–75; PULSE 59–80; RESP 18–20; TEMP 36.6; O2SAT 92–99; BMI 37.0
--- NOTE | 2021-02-17 | IR_ITS ---
APPROVED REPORT Patient Location: Outpatient Custodial Laborer: JOSE CRUZ Syed RT (R) PROCEDURES Left heart catheterization Left ventriculogram Selective coronary angiogram INDICATION Recent non-ST elevation myocardial infarction, Systolic congestive heart failure Informed consent was obtained prior to the procedure. COMPLICATIONS NONE Estimated Blood Loss: LESS THAN 10 ML TECHNIQUE One percent lidocaine used to anesthetize the right anterior aspect of the wrist. The right radial artery was accessed via the Seldinger technique. A 6 American sheath was placed in the right radial artery. 2.5 mg of verapamil, 800 mcg of nitroglycerin, 1mg Lidocaine and 5000 U Heparin were given through the arterial sheath. The Poppa catheter was also used to perform left heart catheterization, left ventriculogram and selective coronary angiogram. At the end of the procedure the sheath was removed good hemostasis was achieved using Traclet band, patient was transferred to the postop holding area in stable condition. ANGIOGRAPHIC RESULTS The left main artery Has a distal concentric 30% stenosis The left anterior descending artery Has proximal and mid vessel 70 and 80% stenoses followed by diffuse calcified 70 to 80% mid vessel stenoses which is present throughout the majority of the mid LAD. A small 1 mm first diagonal artery has an ostial proximal 80 to 90% calcified stenosis The circumflex artery Is a nondominant vessel and has proximal and mid vessel 30 and 40% stenoses with diffuse moderate calcifications throughout. A large first obtuse marginal artery which is 2.25 mm in diameter has 50 and 60% stenoses along tortuous bends. The right coronary artery Is a dominant vessel and severely diseased in the proximal segment and then occluded at mid segment with scant left to right collaterals and right to right collaterals The GAMEZ ventriculogram reveals Not performed The left ventricular end-diastolic pressure Not measured IMPRESSION Severe three-vessel coronary artery disease as described above PLAN 1. Recommend medical management. There is no percutaneous procedure which will benefit this gentleman given the diffuse nature of the stenoses 2. Patient does not appear to be a surgical bypass candidate 3. Maximize medical management 4. Its not unreasonable to offer patient a defibrillator Electronically signed by : Marcelino Sánchez MD 02/17/2021 11:01:54
== END 2021-02-17 14:07 | disposition home or self-care (01) ==
LOC: CATHLAB 08:47
PROVIDERS: PCP Family Medicine; Visit Provider Internal Medicine
DX: I42.9 Cardiomyopathy, unspecified (principal); I21.4 Non-ST elevation (NSTEMI) myocardial infarction; I48.91 Unspecified atrial fibrillation; E11.9 Type 2 diabetes mellitus without complications; Z79.4 Long term (current) use of insulin; I50.22 Chronic systolic (congestive) heart failure; Z79.899 Other long term (current) drug therapy; I25.10 Atherosclerotic heart disease of native coronary artery without angina pectoris; I11.0 Hypertensive heart disease with heart failure
CPT/HCPCS: 93458; 99152; C1725; C1769; J1644; Q9967

== ENCOUNTER 2021-02-24 09:15 | Emergency (ER) | payer MEDICARE, BC, SELFPAY ==
[2021-02-24] VITALS (24 sets, daily range): BP systolic 87–113; BP diastolic 32–67; PULSE 68–97; RESP 16–18; TEMP 36.8–36.9; O2SAT 94–100; BMI 36.3
--- NOTE | 2021-02-24 09:11 | ECG_ITS ---
APPROVED REPORT Exam: Resting ECG HR:85 bpm ECG Measurements Heart Rate 85 AXES PA 128 P 77 QRSd 96 QRS -12 QT 410 T 106 QTc 487 Conclusion Sinus rhythm with fusion complexes Low voltage QRS Septal infarct, age undetermined Inferior injury pattern ACUTE TN Consider right ventricular involvement in acute inferior infarct Abnormal ECG Electronically signed by : Silvino Mojica MD 02/25/2021 06:16:32
[2021-02-24 09:55] LABS: POC Glucose,Bedside 195 (70-110)
--- NOTE | 2021-02-24 09:57 | CT_ITS ---
PROCEDURE: CT ANGIO CHEST PE PROTOCOL CLINCIAL INDICATION: New RLE swelling, presyncope, metastatic disease COMPARISON: CT CT ANGIO CHEST PE PROTOCOL from 01/29/2021 TECHNIQUE: IV Contrast: 70ML Isovue 370 Axial images obtained with sagittal and coronal reformats. All CT scans at the facility use one or more dose reduction, viz: automated exposure control, ma/kV adjustment per patient size (including targeted exams where dose is matched to indication, i.e. head), or iterative reconstruction technique. FINDINGS: HEART AND MEDIASTINAL STRUCTURES: No evidence of pulmonary embolus, aortic aneurysm, or aortic dissection.. There are aortic valve calcifications and extensive coronary artery calcifications. Normal heart size. LUNGS AND PLEURAL SPACES: Small bilateral pleural effusions with bibasilar atelectatic change. BONY STRUCTURES: Degenerative changes thoracic spine with osteophyte formation. UPPER ABDOMEN: See abdomen report ADDITIONAL FINDINGS: Right subclavian central venous line. Tip is in the region the SVC. IMPRESSION: No evidence of pulmonary embolus. Small bilateral effusions with bibasilar atelectasis. Dictated by: Dennis Hardy MD 02/24/2021 11:28 Dennis Hardy MD in [facility] 02/24/2021 11:28
--- NOTE | 2021-02-24 09:57 | CT_ITS ---
PROCEDURE: CT ABDOMEN PELVIS W CON CLINICAL INDICATION: metastatic disease, h/o bleeding COMPARISON: CT CT ABDOMEN PELVIS W CON from 01/29/[address] ANGIO CHEST PE PROTOCOL from 01/29/2021 TECHNIQUE: IV Contrast: 75ML Isovue 370 Oral Contrast None Axial images obtained with sagittal and coronal reformats. All CT scans at the facility use one or more dose reduction, viz: automated exposure control, ma/kV adjustment per patient size (including targeted exams where dose is matched to indication, i.e. head), or iterative reconstruction technique. FINDINGS: Cirrhotic appearance of the liver with a heterogeneous mass of the right hepatic lobe at 12 x 10 x 5 cm with a small amount of perihepatic fluid not significantly changed. There is splenomegaly at 15 cm. There is a moderate amount of ascites. No intestinal obstruction or free air. No evidence of appendicitis or diverticulitis. Eccentric coarse calcifications are present involving the prostate. Status post cholecystectomy No renal or ureteral calculi or hydronephrosis. Small right renal cyst at 13 mm. There is mild distention of the urinary bladder. No acute bony findings. IMPRESSION: 1. No change in the 12 cm hepatic mass consistent with neoplasm. 2. Cirrhosis with ascites and splenomegaly. Dictated by: Dennis Hardy MD 02/24/2021 11:35 Dennis Hardy MD in [facility] 02/24/2021 11:35
[2021-02-24 10:16] LABS: Basophils % 0.6 % (0.1-2.0); Chloride 103 mmol/L (98-107); Eosinophils # 0.3 K/mm3 (0.0-0.4); Eosinophils % 6.3 % (0.1-12.0); Hematocrit 26.6 % (42.0-52.0); Hemoglobin 7.9 g/dL (14.1-18.0); Lymphocytes # 0.6 K/mm3 (0.7-4.5); Lymphocytes % 10.6 % (10-50); Mean Corpuscular HGB Conc 29.7 g/dL (31.8-35.4); Mean Corpuscular Hemoglobin 26.9 pg (27.0-31.2); Mean Corpuscular Volume 90.6 fl (80-94); Monocytes # 0.3 K/mm3 (0.1-1.0); Neutrophils # 4.1 K/mm3 (1.8-7.8); Neutrophils % 76.5 % (37.0-80.0); Platelet Count 224 K/mm3 (142-424); Potassium 3.4 mmoL/L (3.5-5.1); Red Blood Count 2.93 M/mm3 (4.60-6.20); Red Cell Distribution Width 16.5 % (11.5-17.5); Sodium 137 mmol/L (136-145); White Blood Count 5.3 K/mm3 (4.8-10.8)
[2021-02-24 10:18] LABS: Alanine Aminotransferase 28 U/L (12-78); Blood Urea Nitrogen 16 mg/dl (9-20); Creatinine Clearance Estimated 114 mL/min (50-200); Estimated Glomerular Filt Rate 110 ml/min (>60); GFR (African American) 133 ML/MIN (>60)
[2021-02-24 10:19] LABS: Albumin Level 2.9 g/dl (3.5-5.0); Albumin/Globulin Ratio 1.1 (1.1-1.8); Alkaline Phosphatase 86 U/L (38-126); Anion Gap 10.4 mEq/L (5-15); Aspartate Amino Transferase 44 U/L (17-59); Bilirubin,Total 1.3 mg/dl (0.2-1.3); Carbon Dioxide 27 mmol/L (22.0-30.0); Globulin 2.6 g/dL (1.3-3.2); Glucose 176 mg/dl (74-100); Magnesium 1.9 mg/dl (1.6-2.3); Total Protein,Serum 5.5 g/dl (6.3-8.2)
--- NOTE | 2021-02-24 10:20 | CA_ITS ---
APPROVED REPORT Right Lower Extremity Venous Study for DVT. Telemetry Nurse: JUNIOR Indications Lower Extremity Pain: Right rule out clot. Patient was at a followup visit with cardiology when he felt weak and tingling in bilateral arms and legs. 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 Risk Factors Obesity Malignancy Vein Imaging CFV (R): compressive, spontaneous, phasic, augmentation FEM (R): compressive, spontaneous, phasic, augmentation POP (R): compressive, spontaneous, phasic, augmentation PTV (R): Compressible GSV (R): compressive, spontaneous, phasic, augmentation SSV (R): Thrombus Peroneals (R):Not Visualized Findings No evidence of DVT in the veins scanned of the right lower extremity. SVT seen in the SSV in popliteal region of RLE. Conclusion No evidence of DVT in the veins scanned of the right lower extremity. SVT seen in the SSV in popliteal region of RLE. Critical Notification Critical Value: No Physician Notified Date: 02/24/2021 Time: 11:31 Physician Name: coty Electronically signed by : Dennis Hardy MD 02/24/2021 16:57:44
--- NOTE | 2021-02-24 10:28 | HMH.EDGENADL ---
ED Disposition Clinical Impression: Symptomatic anemia Disposition: Home, Self-Care Condition on Discharge: Fair Additional Instructions: Please continue to monitor your symptoms closely at home. If you experience any worsening or concerning symptoms, including the following but not limited to, worsening dizziness, passing out, shortness of breath, chest pain, please return immediately to the nearest emergency department for reassessment. Otherwise, please follow-up as scheduled with your doctor on Saturday and with your EGD appointment on Saturday. Referrals: Silvino Guthrie MD [Primary Care Provider] - - Critical Care Critical Care Time: No Attestation: On 02/24/21, the high probability of a clinically significant, sudden or life threatening deterioration of the following system(s) required my full and direct attention, intervention and personal management. The time I documented below is in addition to time spent performing reported procedures but includes the following listed in this critical care notation. Medical Decision Making - Medical Records Medical records reviewed: Yes: I reviewed the patient's medical records. - Jeff Inquiry Pt receiving controlled substance: No Vital Signs: 02/24/21 09:16 02/24/21 10:15 02/24/21 11:24 Temperature 98.2 F Temperature Source Oral Pulse Rate 91 H 91 H Pulse Rate [Right Radial] 89 Respiratory Rate 18 17 TAR Vitals Timing Blood Pressure 87/41 L 104/58 L Blood Pressure [Right Arm] 98/32 L Blood Pressure Mean Blood Pressure Mean [Right Arm] 54 Blood Pressure Source [Right Arm] Automatic Cuff Blood Pressure Position [Right Arm] Sitting 02 Sat by Pulse Oximetry 97 98 94 L Oxygen Delivery Method Room Air 02/24/21 11:36 02/24/21 12:45 02/24/21 13:19 Temperature 98.3 F Temperature Source Oral Pulse Rate 86 78 86 Pulse Rate [Right Radial] Respiratory Rate 16 TAR Vitals Timing Pre-Blood Vitals Blood Pressure 108/62 L 104/49 L 110/63 Blood Pressure [Right Arm] Blood Pressure Mean 78 Blood Pressure Mean [Right Arm] Blood Pressure Source [Right Arm] Blood Pressure Position [Right Arm] 02 Sat by Pulse Oximetry 99 95 99 Oxygen Delivery Method 02/24/21 13:26 02/24/21 13:29 02/24/21 13:34 Temperature Temperature Source Pulse Rate 75 81 82 Pulse Rate [Right Radial] Respiratory Rate 16 16 TAR Vitals Timing 5 Minute 10 Minute Blood Pressure 108/60 L 94/55 L 104/62 L Blood Pressure [Right Arm] Blood Pressure Mean 68 76 Blood Pressure Mean [Right Arm] Blood Pressure Source [Right Arm] Blood Pressure Position [Right Arm] 02 Sat by Pulse Oximetry 100 99 99 Oxygen Delivery Method 02/24/21 13:35 02/24/21 13:40 02/24/21 13:44 Temperature Temperature Source Pulse Rate 82 86 75 Pulse Rate [Right Radial] Respiratory Rate 16 TAR Vitals Timing 15 Minute Blood Pressure 104/62 L 98/58 L 96/58 L Blood Pressure [Right Arm] Blood Pressure Mean 71 Blood Pressure Mean [Right Arm] Blood Pressure Source [Right Arm] Blood Pressure Position [Right Arm] 02 Sat by Pulse Oximetry 99 98 98 Oxygen Delivery Method 02/24/21 13:50 02/24/21 13:54 02/24/21 14:01 Temperature Temperature Source Pulse Rate 94 H 82 81 Pulse Rate [Right Radial] Respiratory Rate 16 TAR Vitals Timing 30 Minute Blood Pressure 91/59 L 102/59 L 102/59 L Blood Pressure [Right Arm] Blood Pressure Mean 73 Blood Pressure Mean [Right Arm] Blood Pressure Source [Right Arm] Blood Pressure Position [Right Arm] 02 Sat by Pulse Oximetry 97 100 98 Oxygen Delivery Method 02/24/21 14:09 02/24/21 14:10 02/24/21 14:24 Temperature Temperature Source Pulse Rate 83 82 83 Pulse Rate [Right Radial] Respiratory Rate 18 16 TAR Vitals Timing 45 Minute 60 Minute Blood Pressure 103/58 L 103/58 L 102/65 L Blood Pressure [Right Arm] Blood Pressure Mean 73 77 Blood P
[2021-02-24 10:32] LABS: Troponin I < 0.01 ng/ml (0.00-0.034)
== END 2021-02-24 16:22 | disposition home or self-care (01) ==
PROVIDERS: Emergency Provider Emergency Medicine; PCP Family Medicine
DX: C22.1 Intrahepatic bile duct carcinoma (principal); D64.9 Anemia, unspecified; M79.661 Pain in right lower leg; E87.6 Hypokalemia; I48.91 Unspecified atrial fibrillation; Z79.01 Long term (current) use of anticoagulants; E11.9 Type 2 diabetes mellitus without complications; K21.9 Gastro-esophageal reflux disease without esophagitis; I10 Essential (primary) hypertension; E78.5 Hyperlipidemia, unspecified; Z88.2 Allergy status to sulfonamides; Z88.5 Allergy status to narcotic agent; Z79.899 Other long term (current) drug therapy
CPT/HCPCS: 36430; 71275; 74177; 80053; 82962; 83735; 84484; 85025; 86850; 93005; 93971; 99283; P9016; Q9967

== ENCOUNTER 2021-02-27 15:14 | Emergency (ER) | payer MEDICARE, BC, SELFPAY ==
--- NOTE | 2021-02-27 16:14 | PC.NURSE ---
miscommunication between pcp and infusion. pt was to report to infusion for lab work and transfusion. pt was recepted for ed instead. this nurse spoke with dr alston who stated pt just needed infusion and not an ed visit.
[2021-02-27 16:17] VITALS: BP 0/0; PULSE 0; RESP 0; TEMP -17.7; TEMP 0; O2SAT 0
== END 2021-02-27 16:38 | disposition left against medical advice (07) ==
LOC: ER 16:23
PROVIDERS: Emergency Provider Emergency Medicine; PCP Family Medicine
DX: Z53.21 Procedure and treatment not carried out due to patient leaving prior to being seen by health care provider (principal)
CPT/HCPCS: 99211

== ENCOUNTER → 2021-02-27 15:41 | Outpatient (CLI) | payer MEDICARE, BC, SELFPAY ==
[2021-02-27] VITALS (13 sets, daily range): BP systolic 78–120; BP diastolic 35–68; PULSE 74–85; RESP 16–20; TEMP 36.2–37; O2SAT 96–100; BMI 36.3
[2021-02-27 16:01] LABS: Hematocrit 25.9 % (42.0-52.0)
--- NOTE | 2021-02-27 16:15 | PC.NURSE ---
lab staff at pt chairside to witness blood being drawn per Emy Marroquin RN for type and crossmatch.
--- NOTE | 2021-02-27 19:00 | PC.NURSE ---
02/27/21 1855 Report callled to Aide Orourke RN on 2nd floor inpt unit. Pt transferred via wc with blood transfusion infusing to room 213. Pt in stable condition, vss. HAYES Orourke in room with pt and assisted in transfer-assuming care of the pt at this time.
[2021-02-27 22:56] LABS: Hemoglobin 8.4 g/dL (14.1-18.0)
[2021-02-28] VITALS (11 sets, daily range): BP systolic 95–136; BP diastolic 43–81; PULSE 78–88; RESP 16–20; TEMP 36.6–37; O2SAT 94–100
--- NOTE | 2021-02-28 00:14 | PC.NURSE ---
Post transfusion hemoglobin 8.4. Call placed to Dr. Holland and updated. Patient was type and crossed for two units, and received one. Dr. Holland orders to infuse second unit. Orders to obtain H and H 30 minutes post infusion. If vitals are stable at 30 minutes post infusion patient may be discharged regardless if H and H has come back.
--- NOTE | 2021-02-28 01:08 | PC.NURSE ---
Patient completed infusion of one unit red blood cells. Tolerated well with no adverse reactions noted at this time. Repeat H&H pending.
--- NOTE | 2021-02-28 02:40 | PC.NURSE ---
Second unit of blood completed without adverse reactions noted.
[2021-02-28 04:12] LABS: Hematocrit 28.3 % (42.0-52.0)
--- NOTE | 2021-02-28 06:41 | PC.NURSE ---
Patient discharged home with . Assisted to vehicle via w/c and staff. VSS. Denies pain. Port d/c prior to D/c. Verbalizes understanding of plan of care.
== END ==
PROVIDERS: Internal Medicine Adolescent Medicine; PCP Family Medicine; Visit Provider Family Medicine
DX: D64.9 Anemia, unspecified (principal); D50.0 Iron deficiency anemia secondary to blood loss (chronic)
CPT/HCPCS: 36430; 85014; 85018; 86850; J1642; P9016

== ENCOUNTER → 2021-03-14 12:13 | Outpatient (CLI) | payer MEDICARE, BC, SELFPAY ==
[2021-03-14 13:06] LABS: Basophils % 0.5 % (0.1-2.0); Eosinophils # 0.2 K/mm3 (0.0-0.4); Eosinophils % 3.6 % (0.1-12.0); Hemoglobin 9.8 g/dL (14.1-18.0); Lymphocytes # 0.6 K/mm3 (0.7-4.5); Lymphocytes % 10.5 % (10-50); Mean Corpuscular HGB Conc 29.7 g/dL (31.8-35.4); Mean Corpuscular Hemoglobin 27.3 pg (27.0-31.2); Mean Corpuscular Volume 91.9 fl (80-94); Mean Platelet Volume 8.3 fl (7.4-10.4); Monocytes # 0.4 K/mm3 (0.1-1.0); Monocytes % 6.7 % (1.7-9.3); Neutrophils # 4.5 K/mm3 (1.8-7.8); Neutrophils % 78.6 % (37.0-80.0); Platelet Count 227 K/mm3 (142-424); Red Cell Distribution Width 18.7 % (11.5-17.5); White Blood Count 5.8 K/mm3 (4.8-10.8)
[2021-03-14 13:17] LABS: Alanine Aminotransferase 28 U/L (12-78); Aspartate Amino Transferase 42 U/L (17-59); Blood Urea Nitrogen 12 mg/dl (9-20); Estimated Glomerular Filt Rate 94 ml/min (>60); GFR (African American) 114 ML/MIN (>60)
[2021-03-14 13:18] LABS: Alkaline Phosphatase 92 U/L (38-126); Bilirubin,Total 1.5 mg/dl (0.2-1.3); Calcium 7.9 mg/dl (8.4-10.2); Carbon Dioxide 27 mmol/L (22.0-30.0); Glucose 265 mg/dl (74-100); Iron 34 ug/dL (49-181)
[2021-03-14 13:27] LABS: Total Iron Binding Capacity 371 ug/dL (261-462)
[2021-03-14 13:53] LABS: Ferritin 11.8 ng/ml (17.9-464)
[2021-03-14 14:08] LABS: Albumin Level 2.8 g/dl (3.5-5.0); Albumin/Globulin Ratio 1.3 (1.1-1.8); Anion Gap 9.2 mEq/L (5-15); Chloride 102 mmol/L (98-107); Globulin 2.1 g/dL (1.3-3.2); Potassium 3.2 mmoL/L (3.5-5.1); Sodium 135 mmol/L (136-145); Total Protein,Serum 4.9 g/dl (6.3-8.2)
== END ==
PROVIDERS: Visit Provider Family Medicine
DX: I50.20 Unspecified systolic (congestive) heart failure (principal); D50.0 Iron deficiency anemia secondary to blood loss (chronic)
CPT/HCPCS: 36415; 80053; 82728; 83540; 83550; 85025

== ENCOUNTER → 2021-03-29 08:42 | Outpatient (CLI) | payer MEDICARE, BC, SELFPAY ==
[2021-03-29 09:00] VITALS: BP 127/64; PULSE 85; RESP 18; TEMP 35.9; O2SAT 98
[2021-03-29 09:45] VITALS: BP 105/61; PULSE 81; RESP 18
== END ==
PROVIDERS: PCP Family Medicine; Visit Provider Family Medicine
DX: D50.0 Iron deficiency anemia secondary to blood loss (chronic) (principal)
CPT/HCPCS: 96365; J1439; J1642

== ENCOUNTER 2021-04-05 08:56 | Outpatient (CLI) | payer MEDICARE, BC, SELFPAY ==
[2021-04-05 09:34] VITALS: BMI 38.2
[2021-04-05 09:41] VITALS: BP 96/51; PULSE 83; RESP 18; TEMP 36.4; O2SAT 99
[2021-04-05 09:46] LABS: Basophils % 0.7 % (0.1-2.0); Eosinophils # 0.1 K/mm3 (0.0-0.4); Eosinophils % 3.5 % (0.1-12.0); Hematocrit 32.4 % (42.0-52.0); Hemoglobin 9.4 g/dL (14.1-18.0); Lymphocytes # 0.5 K/mm3 (0.7-4.5); Lymphocytes % 12.2 % (10-50); Mean Corpuscular HGB Conc 28.9 g/dL (31.8-35.4); Mean Corpuscular Hemoglobin 26.7 pg (27.0-31.2); Mean Corpuscular Volume 92.2 fl (80-94); Mean Platelet Volume 8.4 fl (7.4-10.4); Monocytes # 0.2 K/mm3 (0.1-1.0); Monocytes % 6.5 % (1.7-9.3); Neutrophils # 2.9 K/mm3 (1.8-7.8); Platelet Count 207 K/mm3 (142-424); Red Blood Count 3.52 M/mm3 (4.60-6.20); Red Cell Distribution Width 23.6 % (11.5-17.5); White Blood Count 3.7 K/mm3 (4.8-10.8)
[2021-04-05 09:55] LABS: Iron 57 ug/dL (49-181)
[2021-04-05 10:04] LABS: Total Iron Binding Capacity 302 ug/dL (261-462)
[2021-04-05 10:15] VITALS: BP 117/66; PULSE 76; RESP 18; O2SAT 98
[2021-04-05 10:32] LABS: Ferritin 393 ng/ml (17.9-464)
== END 2021-04-05 10:55 | disposition home or self-care (01) ==
LOC: INF 08:57
PROVIDERS: PCP Family Medicine; Visit Provider Family Medicine
DX: D50.0 Iron deficiency anemia secondary to blood loss (chronic) (principal); I50.20 Unspecified systolic (congestive) heart failure
CPT/HCPCS: 82728; 83540; 83550; 85025; 96365; J1439; J1642

== ENCOUNTER → 2021-04-18 09:34 | Outpatient (CLI) | payer MEDICARE, BC, SELFPAY ==
--- NOTE | 2021-04-18 09:43 | CA_ITS ---
APPROVED REPORT EXAM: Comprehensive 2D, Doppler, and color-flow Echocardiogram Technical Sales Director: Shea Drake RVT Ht: 6 ft 1 in Wt: 281lbs BSA: 2.49 BP: 104/62 mmHg Indications: CHF,CM,A-FIB,GERD,ASTHMA,EDEMA,DM,HTN,HLD TDS 2D Dimensions LVOT 2.06 cm (M/F) 1.5-2.5 LA Volume 68.90 mL LA Volume Index 27.78 mL/m2 (M/F) 16-34 M-Mode Dimensions RVDd 2.81 cm (0.9-2.6) LA Diam 5.07 cm (1.9-4.0) LVDd 4.52 cm (3.5-5.7) Ao Diam 3.05 cm (2.0-3.7) LVDs 3.61 cm (3.5-5.7) IVSd 1.63 cm (0.6-1.1) PWd 0.99 cm (0.6-1.1) EF (Teich) 41.30% FS 20.10% EDV (Teich) 93.40 mL TAPSE 2.13 (<1.7) ESV (Teich) 54.80 mL LV Diastology E Decel Time 177.00 (160-240 msec) E/A Ratio 2.1 MED E' 7.60 (< 7 cm/sec) E'/MED E' Ratio 10.22 (>14) LAT E' 16.10 (<10 cm/sec) E/LAT E' Ratio 4.83 (>14) Aortic Valve LVOT Max 83.00 (70-110 cm/s) LVOT VTI 15.13 cm AoV Peak Barrington. 186.00 (50-130 cm/s) AO Peak GR. 13.90 mmHg AO Mean GR. 9.00 (<5 mmHg) AO VTI 36.63 (18-25 cm) ROMAINE (VTI) 1.38 (2.5-4.5 cm2) Mitral Valve MV E Max Barrington. 78.00 (40-130 cm/s) MV A Velocity 38.00 (40-130 cm/s) E/A Ratio 2.07 MV Decel. Time 177.00 (160-240 ms) MV PHT 52.00 ms Pulmonary Valve PV Peak Velocity 70.00 (50-150 cm/s) Left Ventricle Left atrium is mildly enlarged, left ventricle is normal size, mild concentric left ventricular hypertrophy, visually estimated ejection fraction 55% with no regional wall motion abnormality, diastolic parameters are inconclusive. Right Ventricle Right atrium and right ventricle mildly enlarged with normal contractility. Aortic Valve Aortic valve is thickened and calcified without Doppler evidence of aortic stenosis or aortic insufficiency. Mitral Valve Mitral valve leaflets are minimally thickened, there is mild mitral regurgitation. Tricuspid Valve Tricuspid grossly normal, there is mild tricuspid regurgitation, tricuspid regurgitation jet velocity is inadequate for calculation of the right ventricular systolic pressure. Pulmonic Valve Pulmonic valve is poorly visualized. Great Vessels Aortic root is normal size. Inferior vena cava is poorly visualized. Pericardium No significant pericardial effusion noted. Conclusion 1. Mild biatrial enlargement, normal left ventricular size, mild concentric left ventricular hypertrophy, visually estimated ejection fraction 55% with no obvious regional wall motion abnormality, diastolic parameters are inconclusive. 2. Thickened and calcified aortic valve without Doppler evidence of aortic stenosis or aortic insufficiency. 3. Mild mitral and tricuspid regurgitation. 4. No significant pericardial effusion. 5. Inferior vena cava is poorly visualized. Electronically signed by : Josh Garcia MD 04/18/2021 18:34:47
== END ==
PROVIDERS: PCP Family Medicine; Visit Provider Family Medicine
DX: I50.20 Unspecified systolic (congestive) heart failure (principal); R07.9 Chest pain, unspecified; R06.09 Other forms of dyspnea
CPT/HCPCS: 93306

== ENCOUNTER 2021-04-19 07:46 | Outpatient (CLI) | payer MEDICARE, BC, SELFPAY ==
--- NOTE | 2021-04-19 07:51 | US_ITS ---
FINAL REPORT CLINICAL HISTORY: CHOLANGIOCARCINOMA; ascites; 9700 ml of para fluid drained FINDINGS: ULTRASOUND-GUIDED PARACENTESIS HISTORY:Ascites ATTENDING PHYSICIAN: Dr. Steele PHYSICIAN HEAD OF MAINTENANCE:Kota Patel PA-C FINDINGS: After informed consent was obtained and timeout procedure performed, fluid was localized in the Right lower quadrantnt under ultrasound guidance and marked on the skin appropriately. The patient was then prepped and draped in the usual sterile fashion and the skin was anesthetized with 1% lidocaine. An ultrasound guided paracentesis was then performed using a Turkel needle. Approximately 9.7 Lof clear yellow fluid was removed The patient tolerated the procedure well and there were no immediate complications. IMPRESSION: Ultrasound guided paracentesis as discussed above. Films reviewed , interpreted and dictated by Dr. Steele Transcribed by Kota Patel PA-C. Reviewed, Interpreted and Dictated by James Steele III, MD Transcribed by LANETTE Messer Authenticated by James Steele III, MD on 04/19/2021 11:02:25 AM [facility]
[2021-04-19 10:10] VITALS: BP 102/57; PULSE 70; RESP 18; TEMP 35.8; O2SAT 98
[2021-04-19 11:09] VITALS: RESP 18
[2021-04-19 11:40] VITALS: RESP 18
[2021-04-19 12:14] VITALS: RESP 18
[2021-04-19 13:00] VITALS: BP 113/57; PULSE 74; RESP 18
[2021-04-19 15:24] LABS: Appearance,Body Fld. Slightly cloudy; Source, Body Fld. Thoracentesis Fluid
[2021-04-19 15:47] LABS: Volume,Body Fld. 15 mL
[2021-04-19 15:48] LABS: RBC,Body Fluid < 10 cells/uL (< 10 X 10^3); TNC,Body Fluid 30 cells/uL (< 1000)
[2021-04-19 17:50] LABS: Mononuclear WBCs,Body Fluid 67 %; Polynuclear WBC,Body Fluid 14 %
[2021-04-20 13:26] LABS: Albumin, Body Fluid 0.7 g/dL (Not Estab.); Amylase, Body Fluid 10 U/L (.); Glucose, Body Fluid 185 mg/dL (.); LD, Body Fluid 65 IU/L (.); Protein, Body Fluid 1.3 g/dL (.)
== END 2021-04-19 13:00 | disposition home or self-care (01) ==
LOC: RAD 07:47 → INF 09:56
PROVIDERS: PCP Family Medicine; Visit Provider Internal Medicine
DX: C22.1 Intrahepatic bile duct carcinoma (principal)
CPT/HCPCS: 49083; 82042; 82150; 82945; 83615; 84155; 88112; 88305; 89051; 96365; 96366; J1642; P9047

== ENCOUNTER → 2021-05-01 08:48 | Outpatient (CLI) | payer MEDICARE, BC, SELFPAY ==
--- NOTE | 2021-05-01 09:03 | US_ITS ---
FINAL REPORT CLINICAL HISTORY: CHOLLANGICARCINOMA FINDINGS: ULTRASOUND-GUIDED PARACENTESIS HISTORY:Ascites ATTENDING PHYSICIAN: Dr. Delarosa PHYSICIAN MANAGER STRATEGIC PARTNERSHIPS: Kota Patel PA-C FINDINGS: After informed consent was obtained and timeout procedure performed, fluid was localized in the right lower quadrant under ultrasound guidance and marked on the skin appropriately. The patient was then prepped and draped in the usual sterile fashion and the skin was anesthetized with 1% lidocaine. An ultrasound guided paracentesis was then performed using a Turkel needle. Approximately 9.7 liters of fluid was removed. A portion of the fluid was sent to lab. The patient tolerated the procedure well and there were no immediate complications. IMPRESSION: Ultrasound guided right lower quadrant paracentesis as discussed above. Reviewed, Interpreted and Dictated by Jaciel Delarosa MD Transcribed by LANETTE Messer Authenticated by Jaciel Delarosa MD on 05/01/2021 11:17:[address] [facility]
== END ==
PROVIDERS: PCP Family Medicine; Visit Provider Internal Medicine
DX: C22.1 Intrahepatic bile duct carcinoma (principal)
CPT/HCPCS: 49083; 88112; 88305

== ENCOUNTER → 2021-05-08 08:41 | Outpatient (CLI) | payer MEDICARE, BC, SELFPAY ==
--- NOTE | 2021-05-08 08:44 | US_ITS ---
FINAL REPORT CLINICAL HISTORY: CHILANGIOCARCINOMA-- 5 liters FINDINGS: ULTRASOUND-GUIDED PARACENTESIS HISTORY: Ascites ATTENDING PHYSICIAN: Dr. Steele PHYSICIAN STORY ANALYST: Neo Christie PA-C FINDINGS: After informed consent was obtained and timeout procedure performed, fluid was localized in the right lower quadrant under ultrasound guidance and marked on the skin appropriately. The patient was then prepped and draped in the usual sterile fashion and the skin was anesthetized with 1% lidocaine. An ultrasound guided paracentesis was then performed using a Turkel needle. Approximately 5liters of fluid was removed. No fluid was sent to lab. The patient tolerated the procedure well and there were no immediate complications. IMPRESSION: Ultrasound guided right lower quadrant paracentesis as discussed above. Films reviewed , interpreted and dictated by Dr. Steele Transcribed by Neo Christie PA-C, BANDAR. Reviewed, Interpreted and Dictated by James Steele III, MD Transcribed by LANETTE Cazares Authenticated by James Steele III, MD on 05/10/2021 08:06:29 AM [facility]
== END ==
PROVIDERS: PCP Family Medicine; Visit Provider Internal Medicine
DX: C22.1 Intrahepatic bile duct carcinoma (principal)
CPT/HCPCS: 49083; 88112; 88305

== ENCOUNTER → 2021-05-15 09:49 | Outpatient (CLI) | payer MEDICARE, BC, SELFPAY ==
--- NOTE | 2021-05-15 09:56 | US_ITS ---
FINAL REPORT CLINICAL HISTORY: CHOLANGIOCARCINOMA-- 5liters-- sent to cystology-- dario kline FINDINGS: ULTRASOUND-GUIDED PARACENTESIS HISTORY:Ascites ATTENDING PHYSICIAN: Dr. Steele PHYSICIAN GENERAL SCIENCE TEACHER: Dario Patel PA-C FINDINGS: After informed consent was obtained and timeout procedure performed, fluid was localized in the right lower quadrant under ultrasound guidance and marked on the skin appropriately. The patient was then prepped and draped in the usual sterile fashion and the skin was anesthetized with 1% lidocaine. An ultrasound guided paracentesis was then performed using a Turkel needle. Approximately 5 liters of fluid was removed. A portion of the fluid was sent to lab. The patient tolerated the procedure well and there were no immediate complications. IMPRESSION: Ultrasound guided right lower quadrant paracentesis as discussed above. Reviewed, Interpreted and Dictated by James Steele III, MD Transcribed by LANETTE Messer Authenticated by James Steele III, MD on 05/15/2021 11:42:19 AM [facility]
== END ==
PROVIDERS: PCP Family Medicine; Visit Provider Internal Medicine
DX: C22.1 Intrahepatic bile duct carcinoma (principal)
CPT/HCPCS: 49083; 88112

== ENCOUNTER → 2021-05-22 09:53 | Outpatient (CLI) | payer MEDICARE, BC, SELFPAY ==
--- NOTE | 2021-05-22 09:55 | US_ITS ---
FINAL REPORT CLINICAL HISTORY: CHOLANGIOCARCINOMA; 5,000 ml of para-fluid drained FINDINGS: ULTRASOUND-GUIDED PARACENTESIS HISTORY: Ascites ATTENDING PHYSICIAN: Dr. Steele PHYSICIAN APPLICATOR SPRAYER: Neo Christie PA-C FINDINGS: After informed consent was obtained and timeout procedure performed, fluid was localized in the right lower quadrant under ultrasound guidance and marked on the skin appropriately. The patient was then prepped and draped in the usual sterile fashion and the skin was anesthetized with 1% lidocaine. An ultrasound guided paracentesis was then performed using a Turkel needle. Approximately 5 liters of peritoneal fluid was removed. Sample of the fluid was sent for preordered laboratory studies. The patient tolerated the procedure well and there were no immediate complications. IMPRESSION: Ultrasound guided right lower quadrant paracentesis as discussed above. Films reviewed , interpreted and dictated by Dr. Steele. Transcribed by Neo Christie PA-C. Reviewed, Interpreted and Dictated by James Steele III, MD Transcribed by LANETTE Cazares Authenticated by James Steele III, MD on 05/22/2021 12:55:22 PM [facility]
== END ==
PROVIDERS: PCP Family Medicine; Visit Provider Internal Medicine
DX: C22.1 Intrahepatic bile duct carcinoma (principal); R18.8 Other ascites
CPT/HCPCS: 49083

== ENCOUNTER → 2021-05-29 09:49 | Outpatient (CLI) | payer MEDICARE, BC, SELFPAY ==
--- NOTE | 2021-05-29 09:53 | US_ITS ---
FINAL REPORT CLINICAL HISTORY: CHOANGIOCARCINOMA; 5,000 ml of para fluid drained FINDINGS: ULTRASOUND-GUIDED PARACENTESIS HISTORY:Ascites ATTENDING PHYSICIAN: Dr. Delarosa PHYSICIAN STITCHER AROUND: Kota Patel PA-C FINDINGS: After informed consent was obtained and timeout procedure performed, fluid was localized in the right lower quadrant under ultrasound guidance and marked on the skin appropriately. The patient was then prepped and draped in the usual sterile fashion and the skin was anesthetized with 1% lidocaine. An ultrasound guided paracentesis was then performed using a Turkel needle. Approximately 5 liters of fluid was removed. No fluid was sent to lab. The patient tolerated the procedure well and there were no immediate complications. IMPRESSION: Ultrasound guided right lower quadrant paracentesis as discussed above. Reviewed, Interpreted and Dictated by Jaciel Delarosa MD Transcribed by LANETTE Messer Authenticated by Jaciel Delarosa MD on 06/01/2021 03:00:56 PM [facility]
== END ==
PROVIDERS: PCP Family Medicine; Visit Provider Internal Medicine
DX: R18.8 Other ascites (principal); C22.1 Intrahepatic bile duct carcinoma
CPT/HCPCS: 49083; 88112

== ENCOUNTER → 2021-06-05 09:55 | Outpatient (CLI) | payer MEDICARE, BC, SELFPAY ==
--- NOTE | 2021-06-05 10:01 | US_ITS ---
FINAL REPORT CLINICAL HISTORY: ASCITES-- 5 liters Marielle kline-- sent to cytology FINDINGS: ULTRASOUND-GUIDED PARACENTESIS HISTORY: Ascites . ATTENDING PHYSICIAN: Dr. Steele PHYSICIAN COUNTER PROFESSIONAL: Marielle Hallman PA-C TECHNIQUE: Informed consent was obtained from the patient. A timeout procedure was performed prior to beginning. Appropriate pocket was localized for drainage. The patient was prepped and draped in routine fashion over the right lower quadrant. Local anesthesia was achieved with 1% lidocaine. Using imaging guidance with images acquired, an 18-gauge sheath needle was directed into the peritoneal fluid. Approximately 5 liters of clear yellow serous fluid was aspirated. Approximately 60 mL was sent to the lab for analysis. IMPRESSION: Successful ultrasound guided diagnostic and therapeutic paracentesis with 5 liters of fluid removed. Reviewed, Interpreted and Dictated by James Steele III, MD Transcribed by Marielle Hallman PA-C Authenticated by James Steele III, MD on 06/05/2021 11:34:53 AM [facility]
== END ==
PROVIDERS: PCP Family Medicine; Visit Provider Internal Medicine
DX: C22.1 Intrahepatic bile duct carcinoma (principal); R18.8 Other ascites
CPT/HCPCS: 49083; 88112; 88305

== ENCOUNTER → 2021-06-09 10:39 | Outpatient (CLI) | payer MEDICARE, BC, SELFPAY ==
--- NOTE | 2021-06-09 10:42 | US_ITS ---
FINAL REPORT CLINICAL HISTORY: CHOLANGIOCARCINOMA FINDINGS: ULTRASOUND-GUIDED PARACENTESIS HISTORY: Ascites . ATTENDING PHYSICIAN: Dr. Steele PHYSICIAN PROPERTY INSURANCE INSPECTOR: Marielle Hallman PA-C TECHNIQUE: Informed consent was obtained from the patient. A timeout procedure was performed prior to beginning. Appropriate pocket was localized for drainage. The patient was prepped and draped in routine fashion over the right lower quadrant. Local anesthesia was achieved with 1% lidocaine. Using imaging guidance with images acquired, an 18-gauge sheath needle was directed into the peritoneal fluid. Approximately 5 liters of clear yellow serous fluid was aspirated. Approximately 60 mL was sent to the lab for analysis. IMPRESSION: Successful ultrasound guided diagnostic and therapeutic paracentesis with 5 liters of fluid removed. Reviewed, Interpreted and Dictated by James Steele III, MD Transcribed by Marielle Hallman PA-C Authenticated by James Steele III, MD on 06/09/2021 01:06:45 PM [facility]
== END ==
PROVIDERS: PCP Family Medicine; Visit Provider Internal Medicine
DX: C22.1 Intrahepatic bile duct carcinoma (principal)
CPT/HCPCS: 49083; 88112; 88305

== ENCOUNTER → 2021-06-12 09:30 | Outpatient (CLI) | payer MEDICARE, BC, SELFPAY ==
--- NOTE | 2021-06-12 08:55 | US_ITS ---
FINAL REPORT CLINICAL HISTORY: ASCTITES; 5,000 ml drained from abdomen; Neo Christie performed para FINDINGS: ULTRASOUND-GUIDED PARACENTESIS HISTORY: Ascites ATTENDING PHYSICIAN: Dr. Steele PHYSICIAN ELECTROLOG OPERATOR: Neo Christie PA-C FINDINGS: After informed consent was obtained and timeout procedure performed, fluid was localized in the right lower quadrant under ultrasound guidance and marked on the skin appropriately. The patient was then prepped and draped in the usual sterile fashion and the skin was anesthetized with 1% lidocaine. An ultrasound guided paracentesis was then performed using a Turkel needle. Approximately 5 liters of clear yellow fluid was removed. No fluid was sent to lab. The patient tolerated the procedure well and there were no immediate complications. IMPRESSION: Ultrasound guided right lower quadrant paracentesis as discussed above. Films reviewed , interpreted and dictated by Dr. Steele. Transcribed by Neo Christie PA-C. Reviewed, Interpreted and Dictated by James Steele III, MD Transcribed by LANETTE Cazares Authenticated by James Steele III, MD on 06/14/2021 10:14:59 AM [facility]
== END ==
PROVIDERS: PCP Family Medicine; Visit Provider Internal Medicine
DX: R18.8 Other ascites (principal); C22.1 Intrahepatic bile duct carcinoma
CPT/HCPCS: 49083; 88112; 88305

== ENCOUNTER → 2021-06-16 09:04 | Outpatient (CLI) | payer MEDICARE, BC, SELFPAY ==
--- NOTE | 2021-06-16 09:08 | US_ITS ---
FINAL REPORT CLINICAL HISTORY: CHOLANGIOCARCINOMA; 5 liters of fluid drained from abdomen; fluid sent for labs/cytology FINDINGS: ULTRASOUND-GUIDED PARACENTESIS HISTORY: Ascites ATTENDING PHYSICIAN: Dr. Steele PHYSICIAN HISTORIC PRESERVATIONIST: Neo Christie PA-C FINDINGS: After informed consent was obtained and timeout procedure performed, fluid was localized in the right lower quadrant under ultrasound guidance and marked on the skin appropriately. The patient was then prepped and draped in the usual sterile fashion and the skin was anesthetized with 1% lidocaine. An ultrasound guided paracentesis was then performed using a Turkel needle. Approximately 5 liters of clear yellow fluid was removed. Sample of the fluid was sent to [facility] for pre-ordered studies. The patient tolerated the procedure well and there were no immediate complications. IMPRESSION: Ultrasound guided right lower quadrant paracentesis as discussed above. Films reviewed , interpreted and dictated by Dr. Steele. Transcribed by Neo Christie PA-C. Reviewed, Interpreted and Dictated by James Steele III, MD Transcribed by LANETTE Cazares Authenticated by James Steele III, MD on 06/16/2021 11:11:50 AM [facility]
== END ==
PROVIDERS: PCP Family Medicine; Visit Provider Internal Medicine
DX: R18.8 Other ascites (principal); C22.1 Intrahepatic bile duct carcinoma
CPT/HCPCS: 49083; 88112; 88305

== ENCOUNTER → 2021-06-19 08:45 | Outpatient (CLI) | payer MEDICARE, BC, SELFPAY ==
--- NOTE | 2021-06-19 08:50 | US_ITS ---
FINAL REPORT CLINICAL HISTORY: ASCITES-- dario kline-- 3750 ml-- sent to pathology FINDINGS: ULTRASOUND-GUIDED PARACENTESIS HISTORY: Ascites ATTENDING PHYSICIAN: Dr. Delarosa PHYSICIAN BARREL PLANER: Dario Patel PA-C FINDINGS: After informed consent was obtained and timeout procedure performed, fluid was localized in the right lower quadrant under ultrasound guidance and marked on the skin appropriately. The patient was then prepped and draped in the usual sterile fashion and the skin was anesthetized with 1% lidocaine. An ultrasound guided paracentesis was then performed using a Turkel needle. Approximately 3.75 liters of fluid was removed. A portion of this fluid was sent to lab. The patient tolerated the procedure well and there were no immediate complications. IMPRESSION: Ultrasound guided right lower quadrant paracentesis as discussed above. Reviewed, Interpreted and Dictated by Jaciel Delarosa MD Transcribed by LANETTE Messer Authenticated by Jaciel Delarosa MD on 06/19/2021 11:05:15 AM [facility]
== END ==
PROVIDERS: PCP Family Medicine; Visit Provider Internal Medicine
DX: R18.8 Other ascites (principal); C22.1 Intrahepatic bile duct carcinoma
CPT/HCPCS: 49083; 88112; 88305

== ENCOUNTER 2021-06-23 09:50 | Emergency (ER) | payer MEDICARE, BC, SELFPAY ==
[2021-06-23 09:51] VITALS: BP 69/40; PULSE 74; RESP 16; TEMP 36.8; O2SAT 96; BMI 32.3
[2021-06-23 10:01] VITALS: BP 71/36; PULSE 75; RESP 16; O2SAT 98
--- NOTE | 2021-06-23 10:01 | ECG_ITS ---
APPROVED REPORT Exam: Resting ECG HR:80 bpm ECG Measurements Heart Rate 80 AXES QRSd 98 QRS -53 QT 395 T 179 QTc 431 Conclusion ATRIAL FIBRILLATION WITH ABERRANT CONDUCTION OR VENTRICULAR PREMATURE COMPLEXES LEFT AXIS DEVIATION [QRS AXIS < -30] ANTEROSEPTAL MYOCARDIAL INFARCTION , PROBABLY OLD [40+ ms Q WAVE IN V1-V4] MODERATE T-WAVE ABNORMALITY, CONSIDER LATERAL ISCHEMIA [-0.1+ mV T-WAVE IN I/aVL/V5/V6] MODERATE T-WAVE ABNORMALITY, CONSIDER INFERIOR ISCHEMIA [-0.1+ mV T-WAVE IN II/aVF] ABNORMAL ECG UNCONFIRMED REPORT Electronically signed by : Silvino Mojica MD 06/23/2021 16:19:30
--- NOTE | 2021-06-23 10:02 | XR_ITS ---
FINAL REPORT CLINICAL HISTORY: cough, chest pain. afib COMPARISON: 05/04/2020 FINDINGS: SINGLE-VIEW CHEST There is mild cardiomegaly. Chest port tip terminates in the SVC. The mediastinum is normal. There are chronic changes at the bases. The lungs are otherwise clear. There is no pneumothorax. IMPRESSION: No acute cardiopulmonary process. Reviewed, Interpreted and Dictated by Jaciel Delarosa MD Transcribed by Marielena Carbajal Authenticated by Jaciel Delarosa MD on 06/23/2021 11:58:45 AM [facility]
[2021-06-23 10:27] LABS: Basophils # 0.1 K/mm3 (0-0.2); Eosinophils # 0.3 K/mm3 (0.0-0.4); Eosinophils % 3.6 % (0.1-12.0); Hemoglobin 13.4 g/dL (14.1-18.0); Lymphocytes # 0.8 K/mm3 (0.7-4.5); Lymphocytes % 10.4 % (10-50); Mean Corpuscular HGB Conc 32.6 g/dL (31.8-35.4); Mean Corpuscular Volume 104.3 fl (80-94); Mean Platelet Volume 8.1 fl (7.4-10.4); Monocytes # 0.5 K/mm3 (0.1-1.0); Monocytes % 5.9 % (1.7-9.3); Neutrophils # 6.3 K/mm3 (1.8-7.8); Neutrophils % 79.1 % (37.0-80.0); Platelet Count 186 K/mm3 (142-424); Red Blood Count 3.93 M/mm3 (4.60-6.20); Red Cell Distribution Width 16.7 % (11.5-17.5); White Blood Count 7.9 K/mm3 (4.8-10.8)
[2021-06-23 10:31] VITALS: BP 93/62; PULSE 71; RESP 16; O2SAT 97
[2021-06-23 10:36] LABS: Activated Partial Thrombo Time 28.8 seconds (22.8-30.6); Prothrombin Time 12.3 seconds (10.1-12.5)
--- NOTE | 2021-06-23 10:36 | US_ITS ---
FINAL REPORT CLINICAL HISTORY: abdominal fluid FINDINGS: ULTRASOUND-GUIDED PARACENTESIS HISTORY: Ascites. ATTENDING PHYSICIAN: Dr. Delarosa PHYSICIAN ASSOCIATE BIOLOGICAL SALES: Marielle Hallman PA-C FINDINGS: After informed consent was obtained and timeout procedure performed, fluid was localized in the right lower quadrant under ultrasound guidance and marked on the skin appropriately. The patient was then prepped and draped in the usual sterile fashion and the skin was anesthetized with 1% lidocaine. An ultrasound guided paracentesis was then performed using a Turkel needle. Approximately 5 L of clear yellow fluid was removed. A portion of the fluid was sent to the lab for analysis. The patient tolerated the procedure well and there were no immediate complications. IMPRESSION: Ultrasound guided paracentesis as discussed above. Reviewed, Interpreted and Dictated by Jaciel Delarosa MD Transcribed by Marielle Hallman PA-C Authenticated by Jaciel Delarosa MD on 06/23/2021 02:40:52 PM [facility]
[2021-06-23 10:41] LABS: Chloride 101 mmol/L (98-107); Sodium 130 mmol/L (136-145)
[2021-06-23 10:42] LABS: Potassium 3.3 mmoL/L (3.5-5.1)
[2021-06-23 10:44] LABS: Alanine Aminotransferase 31 U/L (12-78); Alkaline Phosphatase 131 U/L (38-126); Anion Gap 8.3 mEq/L (5-15); Aspartate Amino Transferase 52 U/L (17-59); Bilirubin,Total 1.1 mg/dl (0.2-1.3); Blood Urea Nitrogen 34 mg/dl (9-20); Carbon Dioxide 24 mmol/L (22.0-30.0); Creatinine Clearance Estimated 85 mL/min (50-200); Estimated Glomerular Filt Rate 59 ml/min (>60); GFR (African American) 72 ML/MIN (>60)
[2021-06-23 10:45] LABS: Albumin Level 2.3 g/dl (3.5-5.0); Ammonia 61 umol/L (9-30); Calcium 7.6 mg/dl (8.4-10.2); Globulin 2.4 g/dL (1.3-3.2); Glucose 256 mg/dl (74-100); Lipase 231 U/L (23-300); Total Protein,Serum 4.7 g/dl (6.3-8.2)
[2021-06-23 10:48] LABS: Lactic Acid 2.2 mmol/L (0.7-2.1)
--- NOTE | 2021-06-23 10:50 | PC.NURSE ---
radiology at bedside preparing pt for procedure
[2021-06-23 10:54] LABS: NT Pro Brain Natriuretic Pep. 306 pg/mL (0-125)
[2021-06-23 11:01] VITALS: BP 64/40; PULSE 68; RESP 13; O2SAT 95
[2021-06-23 11:01] LABS: Troponin I < 0.01 ng/ml (0.00-0.034)
[2021-06-23 11:31] VITALS: BP 89/45; PULSE 79; RESP 16; O2SAT 94
--- NOTE | 2021-06-23 11:50 | PC.NURSE ---
Procedure finished. Pt tolerated.
--- NOTE | 2021-06-23 11:51 | PC.NURSE ---
Called dietary for a diabetic tray
--- NOTE | 2021-06-23 11:53 | PC.NURSE ---
Went in to assess patient after procedure, advises he is feeling much better than when he came in. Lunch tray ordered at this time. No other needs
[2021-06-23 11:57] LABS: Acetone, Serum (Rapid) None Detected (None Detect)
--- NOTE | 2021-06-23 11:59 | PC.NURSE ---
pt up on side of bed eating lunch tray
[2021-06-23 12:07] LABS: Appearance,Body Fld. Cloudy
[2021-06-23 12:08] LABS: Volume,Body Fld. 5000 mL
--- NOTE | 2021-06-23 12:10 | HMH.EDGENADL ---
ED Disposition Clinical Impression: Near syncope Atrial flutter Qualifiers: Atrial flutter type: typical Qualified Code(s): I48.3 - Typical atrial flutter Ascites Qualifiers: Ascites type: malignant Qualified Code(s): R18.0 - Malignant ascites Disposition: Home, Self-Care Condition on Discharge: Good Instructions: DI for Syncope in Adults (Fainting) Referrals: Silvino Guthrie MD [Primary Care Provider] - - Critical Care Critical Care Time: No Attestation: On 06/23/21, the high probability of a clinically significant, sudden or life threatening deterioration of the following system(s) required my full and direct attention, intervention and personal management. The time I documented below is in addition to time spent performing reported procedures but includes the following listed in this critical care notation. Medical Decision Making - Medical Records Medical records reviewed: Yes: I reviewed the patient's medical records. - Jeff Inquiry Pt receiving controlled substance: No Vital Signs: 06/23/21 09:51 06/23/21 10:01 06/23/21 10:31 Temperature 98.2 F Temperature Source Oral Pulse Rate 75 71 Pulse Rate [Right] 74 Respiratory Rate 16 16 16 Blood Pressure 71/36 L 93/62 L Blood Pressure [Right Arm] 69/40 L Blood Pressure Mean 42 70 Blood Pressure Mean [Right Arm] 49 Blood Pressure Source [Right Arm] Automatic Cuff Blood Pressure Position [Right Arm] Sitting 02 Sat by Pulse Oximetry 96 98 97 Oxygen Delivery Method Room Air 06/23/21 11:01 06/23/21 11:31 Temperature Temperature Source Pulse Rate 68 79 Pulse Rate [Right] Respiratory Rate 13 16 Blood Pressure 64/40 L 89/45 L Blood Pressure [Right Arm] Blood Pressure Mean 48 59 Blood Pressure Mean [Right Arm] Blood Pressure Source [Right Arm] Blood Pressure Position [Right Arm] 02 Sat by Pulse Oximetry 95 94 L Oxygen Delivery Method Room Air - Lab Data Lab Results 06/23/21 10:10: WBC 7.9, RBC 3.93 L, Hgb 13.4 L, Hct 41.0 L, MCV 104.3 H, MCH 34.0 H, MCHC 32.6, RDW 16.7, Plt Count 186, MPV 8.1, Neut % (Auto) 79.1, Lymph % (Auto) 10.4, Hamblen % (Auto) 5.9, Eos % (Auto) 3.6, Baso % (Auto) 1.0, Neut # (Auto) 6.3, Lymph # (Auto) 0.8, Hamblen # (Auto) 0.5, Eos # (Auto) 0.3, Baso # (Auto) 0.1 06/23/21 10:10: PT 12.3, INR 1.10, APTT 28.8 06/23/21 10:10: Sodium 130 L, Potassium 3.3 L, Chloride 101, Carbon Dioxide 24, Anion Gap 8.3, BUN 34 H, Creatinine 1.20, Estimated Creat Clear 85, Estimated GFR 59, Est GFR ( Amer) 72, Glucose 256 H, Calcium 7.6 L, Total Bilirubin 1.1, AST 52, ALT 31, Alkaline Phosphatase 131 H, Troponin I < 0.01, NT-Pro-B Natriuret Pep 306 H, Total Protein 4.7 L, Albumin 2.3 L, Globulin 2.4, Albumin/Globulin Ratio 1.0 L, Lipase 231, Acetone Level None detected 06/23/21 10:10: Lactate 2.2 H 06/23/21 10:10: Ammonia 61 H Result diagrams: 06/23/21 10:10 06/23/21 10:10 Orders (Tests/Meds): ED MEDICATIONS Generic Name Dose Route Start Last Admin Trade Name Freq PRN Reason Stop Dose Admin Sodium Chloride 10 ml 06/23/21 10:25 Sodium Chloride 0.9% 10ml Flush Syringe IV 07/23/21 10:24 NEEDED PRN Maintain IV Site Discontinued Medications Generic Name Dose Route Start Last Admin Trade Name Freq PRN Reason Stop Dose Admin Sodium Chloride 1,000 mls @ 999 mls/hr 06/23/21 10:15 06/23/21 10:28 Sod Chlor 0.9% 1000ml Bag IV 06/23/21 11:15 999 mls/hr .Q1H1M XIAO Administration Lidocaine HCl 0 ml 06/23/21 11:55 06/23/21 11:56 Lidocaine 1% 10ml Mdv IJ 06/23/21 11:56 10 ml ONCE ONE Administration ORDERS Category Date Time Status Body Fluid: Cell Count w/ Diff Stat Lab 06/23/21 11:15 Received Rapid PCR Covid and Flu A/B Stat Lab 06/23/21 10:02 Ordered Troponin I Q3H Lab 06/23/21 13:15 Ordered Troponin I Q3H Lab 06/23/21 16:15 Ordered Urinalysis and Microscopic Stat Lab 06/23/21 10:02 Ordered Blood Culture Stat Micro 06/23/21 10:16 Ivonei
[2021-06-23 12:21] LABS: Source, Body Fld. Peritoneal Fluid
[2021-06-23 12:22] LABS: RBC,Body Fluid < 10 cells/uL (< 10 X 10^3); TNC,Body Fluid 35 cells/uL (< 1000)
[2021-06-23 12:26] VITALS: BP 99/64; PULSE 74; RESP 16; TEMP 36.9; O2SAT 98
[2021-06-23 13:22] LABS: Mononuclear WBCs,Body Fluid 75 %; Polynuclear WBC,Body Fluid 25 %
[2021-06-23 14:22] LABS: Reflex Lactic Add Lactic Reflex
[2021-06-24 13:46] LABS: Glucose, Body Fluid 256 mg/dL (.); LD, Body Fluid 53 IU/L (.); Protein, Body Fluid 0.9 g/dL (.)
== END 2021-06-23 12:27 | disposition home or self-care (01) ==
PROVIDERS: Emergency Provider Emergency Medicine; PCP Family Medicine
DX: R55 Syncope and collapse (principal); R06.02 Shortness of breath; I48.3 Typical atrial flutter; R18.0 Malignant ascites; C22.9 Malignant neoplasm of liver, not specified as primary or secondary; E11.9 Type 2 diabetes mellitus without complications; K21.9 Gastro-esophageal reflux disease without esophagitis; E78.5 Hyperlipidemia, unspecified; I10 Essential (primary) hypertension; Z79.899 Other long term (current) drug therapy
CPT/HCPCS: 49083; 71045; 80053; 82009; 82140; 82945; 83605; 83615; 83690; 83880; 84155; 84484; 85025; 85610; 85730; 87040; 87070; 87205; 88112; 88305; 89051; 93005; 96365; 96375; 99284; J1642

== ENCOUNTER → 2021-06-26 09:52 | Outpatient (CLI) | payer MEDICARE, BC, SELFPAY ==
--- NOTE | 2021-06-26 09:57 | US_ITS ---
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 Steele PHYSICIAN DESIGN MAKER: Neo Christie PA-C FINDINGS: After informed consent was obtained and timeout procedure performed, fluid was localized in the right lower quadrant under ultrasound guidance and marked on the skin appropriately. The patient was then prepped and draped in the usual sterile fashion and the skin was anesthetized with 1% lidocaine. An ultrasound guided paracentesis was then performed using a Turkel needle. Approximately 4.2 liters of clear yellow fluid was removed. Sample of the fluid was sent to lab. The patient tolerated the procedure well and there were no immediate complications. IMPRESSION: Ultrasound guided right lower quadrant paracentesis as discussed above. Films reviewed , interpreted and dictated by Dr. Steele. Transcribed by Neo Christie PA-C. Reviewed, Interpreted and Dictated by James Steele III, MD Transcribed by LANETTE Cazares Authenticated by James Steele III, MD on 06/28/2021 08:10:[address] [facility]
== END ==
PROVIDERS: PCP Family Medicine; Visit Provider Internal Medicine
DX: C22.9 Malignant neoplasm of liver, not specified as primary or secondary (principal)
CPT/HCPCS: 49083; 88112; 88305

== ENCOUNTER → 2021-06-30 10:00 | Outpatient (CLI) | payer MEDICARE, BC, SELFPAY ==
--- NOTE | 2021-06-30 10:03 | US_ITS ---
FINAL REPORT CLINICAL HISTORY: CHOLANGIOCARCINOMA; 5,000 ml of para fluid drained; drained placed in left side of abdomen; fluid sent for labs/cytology FINDINGS: ULTRASOUND-GUIDED PARACENTESIS HISTORY: Ascites ATTENDING PHYSICIAN: Dr. Steele PHYSICIAN FLEXOGRAPHIC PRINTING PRESS OPERATOR: Neo Christie PA-C FINDINGS: After informed consent was obtained and timeout procedure performed, fluid was localized in the left lower quadrant under ultrasound guidance and marked on the skin appropriately. The patient was then prepped and draped in the usual sterile fashion and the skin was anesthetized with 1% lidocaine. An ultrasound guided paracentesis was then performed using a Turkel needle. Approximately 5 liters of clear yellow fluid was removed. Sample of the fluid was sent to lab. The patient tolerated the procedure well and there were no immediate complications. IMPRESSION: Ultrasound guided left lower quadrant paracentesis as discussed above. Films reviewed , interpreted and dictated by Dr. Steele. Transcribed by Neo Christie PA-C. Reviewed, Interpreted and Dictated by James Steele III, MD Transcribed by LANETTE Cazares Authenticated by James Steele III, MD on 06/30/2021 11:57:15 AM [facility]
== END ==
PROVIDERS: PCP Family Medicine; Visit Provider Internal Medicine
DX: R18.8 Other ascites (principal); C22.1 Intrahepatic bile duct carcinoma
CPT/HCPCS: 49083; 88112; 88305

== ENCOUNTER → 2021-07-03 10:55 | Outpatient (CLI) | payer MEDICARE, BC, SELFPAY ==
--- NOTE | 2021-07-03 11:06 | US_ITS ---
FINAL REPORT CLINICAL HISTORY: ASCITES 3700 ml fluid drained fluid sent for labs FINDINGS: ULTRASOUND-GUIDED PARACENTESIS HISTORY:Ascites ATTENDING PHYSICIAN: Dr. Delarosa PHYSICIAN ACCOUNT SUPERVISOR: Kota Patel PA-C FINDINGS: After informed consent was obtained and timeout procedure performed, fluid was localized in the right lower quadrant under ultrasound guidance and marked on the skin appropriately. The patient was then prepped and draped in the usual sterile fashion and the skin was anesthetized with 1% lidocaine. An ultrasound guided paracentesis was then performed using a Turkel needle. Approximately 3.7 liters of fluid was removed. A portion of the fluid was sent to lab. The patient tolerated the procedure well and there were no immediate complications. IMPRESSION: Ultrasound guided right lower quadrant paracentesis as discussed above. Reviewed, Interpreted and Dictated by Jaciel Delarosa MD Transcribed by LANETTE Messer Authenticated by Jaciel Delarosa MD on 07/05/2021 07:43:00 AM [facility]
== END ==
PROVIDERS: PCP Family Medicine; Visit Provider Internal Medicine
DX: R18.8 Other ascites (principal); C22.1 Intrahepatic bile duct carcinoma
CPT/HCPCS: 49083; 88112; 88305

== ENCOUNTER → 2021-07-07 11:29 | Outpatient (CLI) | payer MEDICARE, BC, SELFPAY ==
--- NOTE | 2021-07-07 11:32 | US_ITS ---
FINAL REPORT CLINICAL HISTORY: CHOLANGIOCARCINOMA 4000 ml dario vieira FINDINGS: Utilizing ultrasound guidance, site was selected for paracentesis. The skin was prepped and draped in the usual sterile fashion. Skin was anesthtized with 1% Lidocaine. Paracentesis was performed with a Turkel needle. 4 litres of fluid were obtained. The patient tolerated well without complaints. IMPRESSION: Paracentesis performed as above. Reviewed, Interpreted and Dictated by Jaciel Delarosa MD Transcribed by LANETTE Messer Authenticated by Jaciel Delarosa MD on 07/11/2021 07:54:56 AM [facility]
== END ==
PROVIDERS: PCP Family Medicine; Visit Provider Internal Medicine
DX: R18.8 Other ascites (principal); C22.1 Intrahepatic bile duct carcinoma
CPT/HCPCS: 49083; 88112; 88305

== ENCOUNTER → 2021-07-10 08:58 | Outpatient (CLI) | payer MEDICARE, BC, SELFPAY ==
--- NOTE | 2021-07-10 09:01 | US_ITS ---
FINAL REPORT CLINICAL HISTORY: CHOLANGIOCARCINOMA 3 liters per marielle kline FINDINGS: ULTRASOUND-GUIDED PARACENTESIS HISTORY: Ascites. ATTENDING PHYSICIAN: Dr. Steele PHYSICIAN CONTRACT MODELER: Marielle Hallman PA-C FINDINGS: After informed consent was obtained and timeout procedure performed, fluid was localized in the right lower quadrant under ultrasound guidance and marked on the skin appropriately. The patient was then prepped and draped in the usual sterile fashion and the skin was anesthetized with 1% lidocaine. An ultrasound guided paracentesis was then performed using a Turkel needle. Approximately 3 L of clear yellow fluid was removed. A portion of the fluid was sent to the lab for analysis. The patient tolerated the procedure well and there were no immediate complications. IMPRESSION: Ultrasound guided paracentesis as discussed above. Reviewed, Interpreted and Dictated by James Steele III, MD Transcribed by Marielle Hallman PA-C Authenticated by James Steele III, MD on 07/10/2021 03:59:25 PM [facility]
== END ==
PROVIDERS: PCP Family Medicine; Visit Provider Internal Medicine
DX: R18.8 Other ascites (principal); C22.1 Intrahepatic bile duct carcinoma
CPT/HCPCS: 49083; 88112; 88305

== ENCOUNTER → 2021-07-14 08:50 | Outpatient (CLI) | payer MEDICARE, BC, SELFPAY ==
--- NOTE | 2021-07-14 09:02 | US_ITS ---
FINAL REPORT CLINICAL HISTORY: ASCITIES; 5 liters drained from abdomen; fluid sent for labs/cytology FINDINGS: ULTRASOUND-GUIDED PARACENTESIS HISTORY: Malignant ascites. ATTENDING PHYSICIAN: Dr. Delarosa PHYSICIAN VETERINARY LABORATORY TECHNICIAN: Marielle Hallman PA-C FINDINGS: After informed consent was obtained and timeout procedure performed, fluid was localized in the right lower quadrant under ultrasound guidance and marked on the skin appropriately. The patient was then prepped and draped in the usual sterile fashion and the skin was anesthetized with 1% lidocaine. An ultrasound guided paracentesis was then performed using a Turkel needle. Approximately 5 L of cloudy yellow fluid was removed. A portion of the fluid was sent to the lab for analysis. The patient tolerated the procedure well and there were no immediate complications. IMPRESSION: Ultrasound guided RLQ paracentesis as discussed above. Reviewed, Interpreted and Dictated by Jaciel Delarosa MD Transcribed by Marielle Hallman PA-C Authenticated by Jaciel Delarosa MD on 07/14/2021 01:24:[address] [facility] [place]
== END ==
PROVIDERS: PCP Family Medicine; Visit Provider Internal Medicine
DX: R18.8 Other ascites (principal); C22.1 Intrahepatic bile duct carcinoma
CPT/HCPCS: 49083; 88112; 88305

== ENCOUNTER → 2021-07-17 09:52 | Outpatient (CLI) | payer MEDICARE, BC, SELFPAY ==
--- NOTE | 2021-07-17 09:57 | US_ITS ---
FINAL REPORT CLINICAL HISTORY: 5 liters drained from left side of abdomen fluid sent for labs FINDINGS: ULTRASOUND-GUIDED PARACENTESIS HISTORY: Ascites ATTENDING PHYSICIAN: Dr. Steele PHYSICIAN TRAVELING NURSE: JANN Messer FINDINGS: After informed consent was obtained and timeout procedure performed, fluid was localized in the right lower quadrant under ultrasound guidance and marked on the skin appropriately. The patient was then prepped and draped in the usual sterile fashion and the skin was anesthetized with 1% lidocaine. An ultrasound guided paracentesis was then performed using a Turkel needle. Approximately 5 liters of fluid was removed. The patient tolerated the procedure well and there were no immediate complications. IMPRESSION: Ultrasound guided paracentesis as discussed above. Reviewed, Interpreted and Dictated by James Steele III, MD Transcribed by LANETTE Messer Authenticated by James Steele III, MD on 07/17/2021 01:24:02 PM [facility]
== END ==
PROVIDERS: PCP Internal Medicine; Visit Provider Internal Medicine
DX: R18.8 Other ascites (principal); C22.1 Intrahepatic bile duct carcinoma
CPT/HCPCS: 49083; 88112

== ENCOUNTER → 2021-07-21 09:48 | Outpatient (CLI) | payer MEDICARE, BC, SELFPAY ==
--- NOTE | 2021-07-21 09:50 | US_ITS ---
FINAL REPORT CLINICAL HISTORY: ASCITIES-- dario kline--5 liters FINDINGS: ULTRASOUND-GUIDED PARACENTESIS HISTORY: Ascites ATTENDING PHYSICIAN: Dr. Steele PHYSICIAN CERTIFIED ORTHOTIST/PEDORTHIST: Dario Patel PA-C FINDINGS: After informed consent was obtained and timeout procedure performed, fluid was localized in the left lower quadrant under ultrasound guidance and marked on the skin appropriately. The patient was then prepped and draped in the usual sterile fashion and the skin was anesthetized with 1% lidocaine. An ultrasound guided paracentesis was then performed using a Turkel needle. Approximately 5 liters of clear yellow fluid was removed. The patient tolerated the procedure well and there were no immediate complications. IMPRESSION: Ultrasound guided left lower quadrant paracentesis as discussed above. Films reviewed , interpreted and dictated by Dr. Steele Transcribed by Dario Patel PA-C. Reviewed, Interpreted and Dictated by James Steele III, MD Transcribed by LANETTE Messer Authenticated by James Steeel III, MD on 07/21/2021 02:32:42 PM [facility]
== END ==
PROVIDERS: PCP Internal Medicine; Visit Provider Internal Medicine
DX: R18.8 Other ascites (principal); C22.1 Intrahepatic bile duct carcinoma
CPT/HCPCS: 49083

== ENCOUNTER → 2021-07-24 07:53 | Outpatient (CLI) | payer MEDICARE, BC, SELFPAY ==
--- NOTE | 2021-07-24 08:04 | US_ITS ---
FINAL REPORT CLINICAL HISTORY: ASCITES; 4400 ml drained from right side of abdomen; therapeutic only FINDINGS: ULTRASOUND-GUIDED PARACENTESIS HISTORY: Ascites ATTENDING PHYSICIAN: Dr. Steele PHYSICIAN TRACTOR SWEEPER OPERATOR: Neo Christie PA-C FINDINGS: After informed consent was obtained and timeout procedure performed, fluid was localized in the right lower quadrant under ultrasound guidance and marked on the skin appropriately. The patient was then prepped and draped in the usual sterile fashion and the skin was anesthetized with 1% lidocaine. An ultrasound guided paracentesis was then performed using a Turkel needle. Approximately 4.4 liters of clear yellow fluid was removed. No fluid was sent to lab. The patient tolerated the procedure well and there were no immediate complications. IMPRESSION: Ultrasound guided right lower quadrant paracentesis as discussed above. Reviewed, Interpreted and Dictated by James Steele III, MD Transcribed by LANETTE Cazares Authenticated by James Steele III, MD on 07/26/2021 09:32:11 AM [facility]
== END ==
PROVIDERS: PCP Internal Medicine; Visit Provider Internal Medicine
DX: R18.8 Other ascites (principal); C22.1 Intrahepatic bile duct carcinoma
CPT/HCPCS: 49083

== ENCOUNTER → 2021-07-25 07:53 | Outpatient (POV) | payer MEDICARE, BC, SELFPAY | PROVIDERS: Visit Provider Dermatology | DX: Z00.00 Encounter for general adult medical examination without abnormal findings (principal) ==

== ENCOUNTER → 2021-07-28 08:57 | Outpatient (CLI) | payer MEDICARE, BC, SELFPAY ==
--- NOTE | 2021-07-28 09:02 | US_ITS ---
FINAL REPORT CLINICAL HISTORY: CHOLANGIOCARCINOMA; 5 liters drained FINDINGS: ULTRASOUND-GUIDED PARACENTESIS HISTORY: Ascites ATTENDING PHYSICIAN: Dr. Steele PHYSICIAN SCRIPT GIRL: Neo Christie PA-C FINDINGS: After informed consent was obtained and timeout procedure performed, fluid was localized in the left lower quadrant under ultrasound guidance and marked on the skin appropriately. The patient was then prepped and draped in the usual sterile fashion and the skin was anesthetized with 1% lidocaine. An ultrasound guided paracentesis was then performed using a Turkel needle. Approximately 5 liters of clear yellow fluid was removed. No fluid was sent to lab. The patient tolerated the procedure well and there were no immediate complications. IMPRESSION: Ultrasound guided left lower quadrant paracentesis as discussed above. Films reviewed , interpreted and dictated by Dr. Steele. Transcribed by Neo Christie PA-C. Reviewed, Interpreted and Dictated by James Steele III, MD Transcribed by LANETTE Cazares Authenticated by James Steele III, MD on 07/28/2021 11:23:15 AM [facility]
== END ==
PROVIDERS: PCP Internal Medicine; Visit Provider Internal Medicine
DX: R18.8 Other ascites (principal); C22.1 Intrahepatic bile duct carcinoma
CPT/HCPCS: 49083

== ENCOUNTER → 2021-07-31 09:50 | Outpatient (CLI) | payer MEDICARE, BC, SELFPAY ==
--- NOTE | 2021-07-31 09:54 | US_ITS ---
FINAL REPORT CLINICAL HISTORY: ASCITES; 5000 ml drained from left side of abdomen FINDINGS: ULTRASOUND-GUIDED PARACENTESIS HISTORY: Malignant ascites. ATTENDING PHYSICIAN: Dr. Brantley PHYSICIAN TEACHER OF THE HANDICAPPED: Marielle Hallman PA-C FINDINGS: After informed consent was obtained and timeout procedure performed, fluid was localized in the left lower quadrant under ultrasound guidance and marked on the skin appropriately. The patient was then prepped and draped in the usual sterile fashion and the skin was anesthetized with 1% lidocaine. An ultrasound guided paracentesis was then performed using a Turkel needle. Approximately 5 L of clear yellow fluid was removed. The patient tolerated the procedure well and there were no immediate complications. IMPRESSION: Ultrasound guided LLQ paracentesis as discussed above. Reviewed, Interpreted and Dictated by Libra Brantley MD Transcribed by Marielle Hallman PA-C Authenticated by Libra Brantley MD on 07/31/2021 01:22:35 PM [facility]
== END ==
PROVIDERS: PCP Internal Medicine; Visit Provider Internal Medicine
DX: R18.8 Other ascites (principal); C22.1 Intrahepatic bile duct carcinoma
CPT/HCPCS: 49083

== ENCOUNTER → 2021-08-04 10:01 | Outpatient (CLI) | payer MEDICARE, BC, SELFPAY ==
--- NOTE | 2021-08-04 10:06 | US_ITS ---
FINAL REPORT CLINICAL HISTORY: ASCITES; 5 liters drained from right side FINDINGS: ULTRASOUND-GUIDED PARACENTESIS HISTORY: Ascites, cholangiocarcinoma. ATTENDING PHYSICIAN: Dr. Brantley PHYSICIAN OUTBOARD MOTOR ASSEMBLER: Marielle Hallman PA-C TECHNIQUE: Informed consent was obtained from the patient. A timeout procedure was performed. Appropriate pocket was localized for drainage. The rightabdomen was prepped in a routine sterile fashion. Local anesthesia was achieved with 1% lidocaine. Using imaging guidance with images acquired, an 18-gauge sheath needle was directed into the peritoneal fluid. Approximately 5 liters of clear yellow serous fluid was aspirated. No fluid was sent for laboratory analysis. Patient tolerated the procedure well and left the department in good condition. IMPRESSION: Successful ultrasound guided therapeutic paracentesis with 5 liters of fluid removed. Reviewed, Interpreted and Dictated by Libra Brantley MD Transcribed by Marielle Hallman PA-C Authenticated by Libra Brantley MD on 08/04/2021 12:58:[address] [facility]
== END ==
PROVIDERS: PCP Internal Medicine; Visit Provider Internal Medicine
DX: R18.8 Other ascites (principal); C22.1 Intrahepatic bile duct carcinoma
CPT/HCPCS: 49083

== ENCOUNTER → 2021-08-09 09:58 | Outpatient (CLI) | payer MEDICARE, BC, SELFPAY ==
--- NOTE | 2021-08-09 10:02 | US_ITS ---
FINAL REPORT CLINICAL HISTORY: ASCITES-- neo houston FINDINGS: ULTRASOUND-GUIDED PARACENTESIS HISTORY: Ascites ATTENDING PHYSICIAN: Dr. Steele PHYSICIAN PROGRAMMING INTERN: Neo Houston PA-C FINDINGS: After informed consent was obtained and timeout procedure performed, fluid was localized in the right lower quadrant under ultrasound guidance and marked on the skin appropriately. The patient was then prepped and draped in the usual sterile fashion and the skin was anesthetized with 1% lidocaine. An ultrasound guided paracentesis was then performed using a Turkel needle. Approximately 5 liters of clear yellow fluid was removed. sample of the fluid was sent to lab. The patient tolerated the procedure well and there were no immediate complications. IMPRESSION: Ultrasound guided right lower quadrant paracentesis as discussed above. Films reviewed , interpreted and dictated by Dr. Steele. Transcribed by Neo [place] PA-C. Reviewed, Interpreted and Dictated by James Steele III, MD Transcribed by LANETTE Cazares Authenticated and [facility]
== END ==
PROVIDERS: PCP Internal Medicine; Visit Provider Internal Medicine
DX: R18.8 Other ascites (principal)
CPT/HCPCS: 49083

== ENCOUNTER 2021-08-09 11:30 | Emergency (ER) | payer MEDICARE, BC, SELFPAY ==
[2021-08-09] VITALS (9 sets, daily range): BP systolic 119–132; BP diastolic 46–69; PULSE 72–95; RESP 16–17; TEMP 36.8; O2SAT 98–100; BMI 27.1
--- NOTE | 2021-08-09 11:37 | PC.NURSE ---
ED MD at
[2021-08-09 11:44] LABS: POC Glucose,Bedside 237 (70-110)
--- NOTE | 2021-08-09 11:48 | XR_ITS ---
FINAL REPORT CLINICAL HISTORY: cough, confusion COMPARISON: June 23, 2021 FINDINGS: There is a right-sided chest port. The heart size is normal. The mediastinum is normal. There is no focal infiltrate or edema. There are no pleural effusions. There is no pneumothorax. There is no osseous abnormality. IMPRESSION: No acute cardiopulmonary process Reviewed, Interpreted and Dictated by James Steele III, MD Transcribed by Fabian Farley [facility]
--- NOTE | 2021-08-09 11:48 | CT_ITS ---
FINAL REPORT CLINICAL HISTORY: [facility] COMPARISON: 01/29/2021 FINDINGS: Axial images of the head were obtained without contrast. Coronal reformatted images were also obtained. This study was performed with techniques to keep radiation doses as low as reasonably achievable (ALARA). Individualized dose reduction techniques using automated exposure control or adjustment of mA and/or kV according to the patient's size were employed. There is generalized age-appropriate atrophy. Periventricular low-attenuation areas are seen consistent with mild chronic ischemic changes. There is no evidence of intracranial hemorrhage or mass. There is no evidence of acute infarct. There is no evidence of shift of the midline structures. No skull abnormality is seen on the bone window images. IMPRESSION: Atrophy and mild periventricular chronic ischemic changes. No acute intracranial abnormality identified. Reviewed, Interpreted and Dictated by James Steele III, MD Transcribed by Fabian Farley [facility]
--- NOTE | 2021-08-09 12:01 | PC.NURSE ---
patient to restroom by wheelchair with assistance of spouse and tech; no complications
--- NOTE | 2021-08-09 12:08 | PC.NURSE ---
pt back to ED room 2 from restroom by wheelchair with help of spouse and tech; pt hooked back up to monitor and has no other needs at this time
[2021-08-09 12:16] LABS: Microscopic, Urine URINE MICROSCOPIC (MICROSCOPIC)
[2021-08-09 12:27] LABS: Appearance,Urine SL CLOUDY (Clear); Bilirubin,Urine Negative (Negative); Blood, Urine Negative (Negative); Color,Urine YELLOW (Yellow); Glucose,Urine (UA) 3+ (Negative); Ketones,Urine Negative (Negative); Leukocyte Esterase,Urine 2+ (Negative); Nitrate,Urine Negative (Negative); Protein,Urine Negative (Negative); Urobilinogen,Urine 0.2 EU/dl (0.2)
--- NOTE | 2021-08-09 12:40 | PC.NURSE ---
pt returned from radiology by stretcher with interventional radiology technologist
[2021-08-09 12:43] LABS: Basophils # 0.1 K/mm3 (0-0.2); Basophils % 0.6 % (0.1-2.0); Eosinophils # 0.3 K/mm3 (0.0-0.4); Eosinophils % 3.3 % (0.1-12.0); Hematocrit 32.3 % (42.0-52.0); Hemoglobin 10.4 g/dL (14.1-18.0); Lymphocytes # 0.8 K/mm3 (0.7-4.5); Mean Corpuscular HGB Conc 32.3 g/dL (31.8-35.4); Mean Corpuscular Volume 102.2 fl (80-94); Mean Platelet Volume 8.3 fl (7.4-10.4); Monocytes # 0.5 K/mm3 (0.1-1.0); Monocytes % 6.7 % (1.7-9.3); Neutrophils # 5.9 K/mm3 (1.8-7.8); Neutrophils % 78.3 % (37.0-80.0); Platelet Count 236 K/mm3 (142-424); Red Blood Count 3.16 M/mm3 (4.60-6.20); Red Cell Distribution Width 16.7 % (11.5-17.5); White Blood Count 7.6 K/mm3 (4.8-10.8)
[2021-08-09 12:48] LABS: Bacteria,Urine 2+ /lpf; RBC,Urine Occasional #/hpf (0-3); Yeast,Urine Occasional /lpf
[2021-08-09 12:58] LABS: Chloride 96 mmol/L (98-107); Potassium 3.5 mmoL/L (3.5-5.1); Sodium 125 mmol/L (136-145)
[2021-08-09 13:01] LABS: Alanine Aminotransferase 40 U/L (12-78); Albumin Level 2.8 g/dl (3.5-5.0); Albumin/Globulin Ratio 1.1 (1.1-1.8); Alkaline Phosphatase 122 U/L (38-126); Anion Gap 10.5 mEq/L (5-15); Aspartate Amino Transferase 55 U/L (17-59); Bilirubin,Total 2.6 mg/dl (0.2-1.3); Blood Urea Nitrogen 26 mg/dl (9-20); Calcium 8.4 mg/dl (8.4-10.2); Carbon Dioxide 22 mmol/L (22.0-30.0); Creatinine Clearance Estimated 83 mL/min (50-200); Estimated Glomerular Filt Rate 73 ml/min (>60); GFR (African American) 88 ML/MIN (>60); Globulin 2.5 g/dL (1.3-3.2); Glucose 263 mg/dl (74-100); Lipase 305 U/L (23-300); Total Protein,Serum 5.3 g/dl (6.3-8.2)
[2021-08-09 13:04] LABS: Activated Partial Thrombo Time 31.7 seconds (22.8-30.6); INR 1.18 (0.9-1.1); Prothrombin Time 13.2 seconds (10.1-12.5)
[2021-08-09 13:06] LABS: Ammonia 57 umol/L (9-30)
[2021-08-09 13:11] LABS: NT Pro Brain Natriuretic Pep. 325 pg/mL (0-125)
[2021-08-09 13:17] LABS: Acetone, Serum (Rapid) None Detected (None Detect)
[2021-08-09 13:18] LABS: Troponin I < 0.01 ng/ml (0.00-0.034)
[2021-08-09 13:32] LABS: Thyroid Stimulating Hormone 1.66 uIU/mL (0.465-4.68)
[2021-08-09 14:11] LABS: Coronavirus 19, PCR Not Detected (NotDetected); Influenza A, PCR Not Detected (NotDetected); Influenza B, PCR Not Detected (NotDetected)
--- NOTE | 2021-08-09 14:19 | HMH.EDAMS ---
ED Disposition Clinical Impression: Altered mental status Qualifiers: Altered mental status type: unspecified Qualified Code(s): R41.82 - Altered mental status, unspecified Liver cancer Qualifiers: Liver malignancy type: unspecified liver malignancy Qualified Code(s): C22.9 - Malignant neoplasm of liver, not specified as primary or secondary UTI (urinary tract infection) Qualifiers: Urinary tract infection type: acute cystitis Hematuria presence: with hematuria Qualified Code(s): N30.01 - Acute cystitis with hematuria Disposition: Home, Self-Care Condition on Discharge: Good Instructions: DI for Altered Mental Status Prescriptions: cephALEXin [Cephalexin 500mg Tab] 500 mg PO BID #14 tab Transmission Status: Pending to [facility] Referrals: Silvino Guthrie MD [Primary Care Provider] - - Critical Care Critical Care Time: No Attestation: On 08/09/21, the high probability of a clinically significant, sudden or life threatening deterioration of the following system(s) required my full and direct attention, intervention and personal management. The time I documented below is in addition to time spent performing reported procedures but includes the following listed in this critical care notation. Medical Decision Making - Medical Records Medical records reviewed: Yes: I reviewed the patient's medical records. - Jeff Inquiry Pt receiving controlled substance: No Vital Signs: 08/09/21 11:40 08/09/21 11:48 08/09/21 12:08 Temperature 98.2 F Temperature Source Oral Pulse Rate 95 H 81 Pulse Rate [Left Radial] 87 Respiratory Rate 17 Blood Pressure 129/69 132/69 Blood Pressure [Right Arm] 129/69 Blood Pressure Mean 79 Blood Pressure Mean [Right Arm] 89 02 Sat by Pulse Oximetry 99 99 99 Oxygen Delivery Method Room Air Room Air 08/09/21 12:31 08/09/21 13:00 08/09/21 13:30 Temperature Temperature Source Pulse Rate 80 93 H 80 Pulse Rate [Left Radial] Respiratory Rate Blood Pressure 119/46 L 130/64 128/66 Blood Pressure [Right Arm] Blood Pressure Mean 70 83 76 Blood Pressure Mean [Right Arm] 02 Sat by Pulse Oximetry 100 99 100 Oxygen Delivery Method Room Air 08/09/21 14:00 Temperature Temperature Source Pulse Rate 72 Pulse Rate [Left Radial] Respiratory Rate Blood Pressure 129/63 Blood Pressure [Right Arm] Blood Pressure Mean 74 Blood Pressure Mean [Right Arm] 02 Sat by Pulse Oximetry 98 Oxygen Delivery Method - Lab Data Lab Results 08/09/21 11:37: POC Glucose 237 H 08/09/21 12:07: Urine Color Yellow, Urine Appearance Sl cloudy, Urine pH 5.0, Ur Specific [place] 1.010, Urine Protein Negative, Urine Glucose (UA) 3+, Urine Ketones Negative, Urine Blood Negative, Urine Nitrate Negative, Urine Bilirubin Negative, Urine Urobilinogen 0.2, Ur Leukocyte Esterase 2+ A, Urine RBC Occasional, Urine WBC 5-10, Ur Squamous Epith Cells 3-5, Urine Bacteria 2+, Urine Yeast Occasional 08/09/21 12:26: WBC 7.6, RBC 3.16 L, Hgb 10.4 L, Hct 32.3 L, MCV 102.2 H, MCH 33.0 H, MCHC 32.3, RDW 16.7, Plt Count 236, MPV 8.3, Neut % (Auto) 78.3, Lymph % (Auto) 11.0, [place] % (Auto) 6.7, Eos % (Auto) 3.3, Baso % (Auto) 0.6, Neut # (Auto) 5.9, Lymph # (Auto) 0.8, [place] # (Auto) 0.5, Eos # (Auto) 0.3, Baso # (Auto) 0.1 08/09/21 12:26: PT 13.2 H, INR 1.18 H, APTT 31.7 H 08/09/21 12:26: Sodium 125 L, Potassium 3.5, Chloride 96 L, Carbon Dioxide 22, Anion Gap 10.5, BUN 26 H, Creatinine 1.00, Estimated Creat Clear 83, Estimated GFR 73, Est GFR ( Amer) 88, Glucose 263 H, Calcium 8.4, Total Bilirubin 2.6 H, AST 55, ALT 40, Alkaline Phosphatase 122, Troponin I < 0.01, NT-Pro-B Natriuret Pep 325 H, Total Protein 5.3 L, Albumin 2.8 L, Globulin 2.5, Albumin/Globulin Ratio 1.1, Lipase 305 H, TSH 1.66, Acetone Level None detected 08/09/21 12:26: Lactate 2.0 08/09/21 12:26: Ammonia 57 H Result diagrams: 08/09/21 12:26 08/09/21 12:26 Orders (Tests/Meds): ORDERS Category D
== END 2021-08-09 15:03 | disposition home or self-care (01) ==
PROVIDERS: Emergency Provider Emergency Medicine; PCP Family Medicine
DX: R18.8 Other ascites (principal); N30.01 Acute cystitis with hematuria; C22.9 Malignant neoplasm of liver, not specified as primary or secondary; K21.9 Gastro-esophageal reflux disease without esophagitis; E78.5 Hyperlipidemia, unspecified; I10 Essential (primary) hypertension; Z79.899 Other long term (current) drug therapy; R06.00 Dyspnea, unspecified
CPT/HCPCS: 49083; 70450; 71045; 80053; 81001; 82009; 82140; 82962; 83605; 83690; 83880; 84443; 84484; 85025; 85610; 85730; 87086; 87088; 87186; 88112; 88305; 99284; C9803; U0003; U0005

== ENCOUNTER → 2021-08-14 09:20 | Outpatient (CLI) | payer MEDICARE, BC, SELFPAY ==
--- NOTE | 2021-08-14 09:25 | US_ITS ---
FINAL REPORT CLINICAL HISTORY: CHOLANGIOCARCINOMA; 5 liters drained form left side FINDINGS: ULTRASOUND-GUIDED PARACENTESIS HISTORY: Ascites ATTENDING PHYSICIAN: Dr. Steele PHYSICIAN NET APPLICATION SUPPORT SPECIALIST: Kota Patel PA-C FINDINGS: After informed consent was obtained and timeout procedure performed, fluid was localized under ultrasound guidance and marked on the skin appropriately. The patient was then prepped and draped in the usual sterile fashion and the skin was anesthetized with 1% lidocaine. An ultrasound guided paracentesis was then performed using a Turkel needle. Approximately 5 liters of clear yellow fluid was removed. No fluid was sent to lab. The patient tolerated the procedure well and there were no immediate complications. IMPRESSION: Ultrasound guided paracentesis as discussed above. Films reviewed , interpreted and dictated by Dr. Steele Transcribed by Kota Patel PA-C. Reviewed, Interpreted and Dictated by James Steele III, MD Transcribed by LANETTE Messer Authenticated and [facility]
== END ==
PROVIDERS: PCP Family Medicine; Visit Provider Internal Medicine
DX: R18.8 Other ascites (principal)
CPT/HCPCS: 49083

== ENCOUNTER 2021-08-15 10:03 | Observation (INO) | payer MEDICARE, BC, SELFPAY ==
[2021-08-15] VITALS (13 sets, daily range): BP systolic 98–147; BP diastolic 39–83; PULSE 81–104; RESP 14–18; TEMP 36.6–36.7; O2SAT 96–100; BMI 30.3; BMI 31.1
--- NOTE | 2021-08-15 10:18 | XR_ITS ---
FINAL REPORT CLINICAL HISTORY: trauma/pain left buttock FINDINGS: PELVIS Two views were obtained. There is no acute fracture or dislocation. There are mild degenerative changes of both hips. There are multiple presumes prostate calcifications. IMPRESSION: No acute process. If symptoms persist, consider CT or MRI. Reviewed, Interpreted and Dictated by James Steele III, MD Transcribed by Marielena Carbajal Authenticated and [facility]
--- NOTE | 2021-08-15 10:18 | XR_ITS ---
FINAL REPORT CLINICAL HISTORY: trauma/pain left ribs COMPARISON: 08/09/2021 FINDINGS: A single view of the chest with 5 views of the ribs were obtained. There is no acute cardiopulmonary process. Right subclavian port is present. No pneumothorax is identified. No displaced rib fracture identified. IMPRESSION: No acute process. Reviewed, Interpreted and Dictated by James Steele III, MD Transcribed by Marielena Carbajal Authenticated and [facility]
--- NOTE | 2021-08-15 10:21 | HMH.EDFALL ---
ED Disposition Clinical Impression: Hepatic encephalopathy, Dehydration, UTI (urinary tract infection), UTI (urinary tract infection) due to Enterococcus Disposition: Admitted as Observation Condition on Discharge: Good - Critical Care Critical Care Time: No Attestation: On 08/15/21, the high probability of a clinically significant, sudden or life threatening deterioration of the following system(s) required my full and direct attention, intervention and personal management. The time I documented below is in addition to time spent performing reported procedures but includes the following listed in this critical care notation. Medical Decision Making - Medical Records Medical records reviewed: Yes: I reviewed the patient's medical records. - Jeff Inquiry Pt receiving controlled substance: No Vital Signs: 08/15/21 10:04 08/15/21 10:10 08/15/21 11:00 Temperature 98.1 F Temperature Source Oral Pulse Rate 101 H 96 H Pulse Rate [Right Radial] 104 H Respiratory Rate 18 Blood Pressure 101/46 L 113/67 Blood Pressure [Right Arm] 101/46 L Blood Pressure Mean 57 82 Blood Pressure Mean [Right Arm] 64 Blood Pressure Source [Right Arm] Automatic Cuff Blood Pressure Position [Right Arm] Sitting 02 Sat by Pulse Oximetry 98 99 97 Oxygen Delivery Method Room Air 08/15/21 11:07 08/15/21 11:30 08/15/21 12:00 Temperature Temperature Source Pulse Rate 97 H 98 H 98 H Pulse Rate [Right Radial] Respiratory Rate Blood Pressure 130/72 121/59 L 139/79 Blood Pressure [Right Arm] Blood Pressure Mean 84 79 91 Blood Pressure Mean [Right Arm] Blood Pressure Source [Right Arm] Blood Pressure Position [Right Arm] 02 Sat by Pulse Oximetry 97 100 97 Oxygen Delivery Method - Lab Data Lab Results 08/15/21 11:46: WBC 8.9, RBC 3.07 L, Hgb 10.0 L, Hct 31.1 L, MCV 101.2 H, MCH 32.6 H, MCHC 32.2, RDW 16.8, Plt Count 270, MPV 8.4, Neut % (Auto) 79.8, Lymph % (Auto) 9.0 L, [place] % (Auto) 7.3, Eos % (Auto) 3.1, Baso % (Auto) 0.7, Neut # (Auto) 7.1, Lymph # (Auto) 0.8, [place] # (Auto) 0.7, Eos # (Auto) 0.3, Baso # (Auto) 0.1 08/15/21 11:46: Sodium 126 L, Potassium 4.4, Chloride 97 L, Carbon Dioxide 22, Anion Gap 11.4, BUN 27 H, Creatinine 1.00, Estimated Creat Clear 96, Estimated GFR 73, Est GFR ( Amer) 88, Glucose 340 H, Calcium 8.8, Total Bilirubin 1.7 H, AST 51, ALT 40, Alkaline Phosphatase 134 H, Total Protein 5.3 L, Albumin 2.7 L, Globulin 2.6, Albumin/Globulin Ratio 1.0 L 08/15/21 11:46: Ammonia 97 H 08/15/21 12:55: Urine Color Yellow, Urine Appearance Clear, Urine pH 6.0, Ur Specific [place] <= 1.005, Urine Protein Negative, Urine Glucose (UA) 3+, Urine Ketones Negative, Urine Blood Negative, Urine Nitrate Negative, Urine Bilirubin Negative, Urine Urobilinogen 0.2, Ur Leukocyte Esterase 1+ A, Urine RBC Occasional, Urine WBC 3-5, Ur Squamous Epith Cells Occasional, Urine Bacteria Trace Result diagrams: 08/15/21 11:46 08/15/21 11:46 Orders (Tests/Meds): ED MEDICATIONS Generic Name Dose Route Start Last Admin Trade Name Freq PRN Reason Stop Dose Admin Sodium Chloride 1,000 mls @ 125 mls/hr 08/15/21 12:30 08/15/21 13:42 Sod Chlor 0.9% 1000ml Bag IV 09/14/21 12:29 125 mls/hr .Q8H XIAO Administration Sodium Chloride 10 ml 08/15/21 11:52 Sodium Chloride 0.9% 10ml Flush Syringe IV 09/14/21 11:51 NEEDED PRN Maintain IV Site Discontinued Medications Generic Name Dose Route Start Last Admin Trade Name Freq PRN Reason Stop Dose Admin Lactulose 20 gm 08/15/21 12:22 08/15/21 13:42 Lactulose 20gm/30ml Udc PO 08/15/21 12:23 20 gm ONCE ONE Administration ORDERS Category Date Time Status Urine Culture Stat Micro 08/15/21 12:55 Received - Physician Consults Physician Consulted: dr jerez accepts obs here Fall HPI - General Stated Complaint: ao fall 08/15, left rib and left hip pain Time Seen by Provider: 08/15/21 10:21 - H
--- NOTE | 2021-08-15 10:22 | CT_ITS ---
FINAL REPORT CLINICAL HISTORY: trauma/confusion COMPARISON: 08/09/2021 FINDINGS: Axial images of the head were obtained without contrast. Coronal reformatted images were also obtained. This study was performed with techniques to keep radiation doses as low as reasonably achievable (ALARA). Individualized dose reduction techniques using automated exposure control or adjustment of mA and/or kV according to the patient''s size were employed. There is generalized age-appropriate atrophy. Periventricular low-attenuation areas are seen consistent with mild chronic ischemic changes. There is no evidence of intracranial hemorrhage or mass. There is no evidence of acute infarct. There is no evidence of shift of the midline structures. No skull abnormality is seen on the bone window images. IMPRESSION: Atrophy and mild periventricular chronic ischemic changes. No acute intracranial abnormality identified. Reviewed, Interpreted and Dictated by James Steele III, MD Transcribed by Marielena Carbajal Authenticated and [facility]
--- NOTE | 2021-08-15 10:23 | CT_ITS ---
FINAL REPORT CLINICAL HISTORY: fall/confusion FINDINGS: Axial CT images of the cervical spine were obtained without contrast. Sagittal and coronal reformatted images were also obtained. This study was performed with techniques to keep radiation doses as low as reasonably achievable (ALARA). Individualized dose reduction techniques using automated exposure control or adjustment of mA and/or kV according to the patient's size were employed. There is no evidence of fracture or dislocation. The bony alignment is normal. Mild degenerative changes are present. There is no evidence of canal stenosis. No paraspinous soft tissue abnormality is seen. Limited images of the upper thorax are unremarkable. IMPRESSION: No fracture or acute bony abnormality identified. Reviewed, Interpreted and Dictated by James Steele III, MD Transcribed by Marielena Carbajal Authenticated and [facility]
--- NOTE | 2021-08-15 10:28 | PC.NURSE ---
Pt to rad
--- NOTE | 2021-08-15 11:08 | PC.NURSE ---
Rad taking patient to CT Scan
[2021-08-15 11:56] LABS: Basophils # 0.1 K/mm3 (0-0.2); Basophils % 0.7 % (0.1-2.0); Eosinophils # 0.3 K/mm3 (0.0-0.4); Eosinophils % 3.1 % (0.1-12.0); Hematocrit 31.1 % (42.0-52.0); Lymphocytes # 0.8 K/mm3 (0.7-4.5); Mean Corpuscular HGB Conc 32.2 g/dL (31.8-35.4); Mean Corpuscular Hemoglobin 32.6 pg (27.0-31.2); Mean Corpuscular Volume 101.2 fl (80-94); Mean Platelet Volume 8.4 fl (7.4-10.4); Monocytes # 0.7 K/mm3 (0.1-1.0); Monocytes % 7.3 % (1.7-9.3); Neutrophils # 7.1 K/mm3 (1.8-7.8); Neutrophils % 79.8 % (37.0-80.0); Platelet Count 270 K/mm3 (142-424); Red Blood Count 3.07 M/mm3 (4.60-6.20); Red Cell Distribution Width 16.8 % (11.5-17.5); White Blood Count 8.9 K/mm3 (4.8-10.8)
[2021-08-15 12:03] LABS: Chloride 97 mmol/L (98-107); Potassium 4.4 mmoL/L (3.5-5.1); Sodium 126 mmol/L (136-145)
[2021-08-15 12:06] LABS: Alanine Aminotransferase 40 U/L (12-78); Albumin Level 2.7 g/dl (3.5-5.0); Alkaline Phosphatase 134 U/L (38-126); Anion Gap 11.4 mEq/L (5-15); Aspartate Amino Transferase 51 U/L (17-59); Bilirubin,Total 1.7 mg/dl (0.2-1.3); Blood Urea Nitrogen 27 mg/dl (9-20); Carbon Dioxide 22 mmol/L (22.0-30.0); Creatinine Clearance Estimated 96 mL/min (50-200); Estimated Glomerular Filt Rate 73 ml/min (>60); GFR (African American) 88 ML/MIN (>60); Globulin 2.6 g/dL (1.3-3.2); Total Protein,Serum 5.3 g/dl (6.3-8.2)
[2021-08-15 12:07] LABS: Ammonia 97 umol/L (9-30); Calcium 8.8 mg/dl (8.4-10.2); Glucose 340 mg/dl (74-100)
--- NOTE | 2021-08-15 12:49 | PC.NURSE ---
Called Dr Holland's office. Nurse advised he will call back when he has a moment .
[2021-08-15 13:04] LABS: Microscopic, Urine URINE MICROSCOPIC (MICROSCOPIC)
[2021-08-15 13:05] LABS: Appearance,Urine CLEAR (Clear); Bilirubin,Urine Negative (Negative); Blood, Urine Negative (Negative); Color,Urine YELLOW (Yellow); Glucose,Urine (UA) 3+ (Negative); Ketones,Urine Negative (Negative); Leukocyte Esterase,Urine 1+ (Negative); Nitrate,Urine Negative (Negative); Protein,Urine Negative (Negative); Specific Gravity, Urine <= 1.005 (1.005-1.030); Urobilinogen,Urine 0.2 EU/dl (0.2)
--- NOTE | 2021-08-15 13:31 | PC.NURSE ---
checked on pt at this time, pt at BS, pt resting in bed on L side. Pt states no needs at this time, will continue to monitor
[2021-08-15 13:36] LABS: Bacteria,Urine Trace /lpf; RBC,Urine Occasional #/hpf (0-3); Squamous Epithelial Cell,Urine Occasional #/hpf (0-5)
[2021-08-15 14:29] LABS: Lactic Acid 2.9 mmol/L (0.7-2.1)
--- NOTE | 2021-08-15 14:32 | INFXCTL.NOTE ---
placed a 1 time order for rocephin 1 g per IV at this time, ER MD has placed order for ropcehin 1g q24h for admission but I am unable to access this order from the ER side.
[2021-08-15 14:37] LABS: Influenza B, PCR Not Detected (NotDetected)
[2021-08-15 14:39] LABS: Coronavirus 19, PCR Not Detected (NotDetected); Influenza A, PCR Not Detected (NotDetected)
--- NOTE | 2021-08-15 15:09 | PC.NURSE ---
Report called to Marlo Davis RN
--- NOTE | 2021-08-15 15:23 | P.CONPHA_ITS ---
[facility] Pharm[facility] VTE Monitoring - Patient Demographics Admission date: 08/15/21 Report Date: 08/15/21 Time: 15:23 Allergies/Adverse Reactions: Patient Allergies codeine Allergy (Mild, Verified 05/18/21 10:09) Sulfa (Sulfonamide Antibiotics) [SULFA (SULFONAMIDE ANTIBIOTICS)] Allergy (Unknown, Verified 05/18/21 10:09) Height: 1.85 m Weight: 104.326 kg Patient Problems: Current Active Problems UTI (urinary tract infection) (Acute) Hepatic encephalopathy (Acute) Dehydration (Acute) UTI (urinary tract infection) due to Enterococcus (Acute) - VTE Risk Labs: VTE Related Lab Results Hgb 10.0 g/dL (14.1-18.0) L 08/15/21 11:46 Hct 31.1 % (42.0-52.0) L 08/15/21 11:46 Plt Count 270 K/mm3 (142-424) 08/15/21 11:46 BUN 27 mg/dl (9-20) H 08/15/21 11:46 Creatinine 1.00 mg/dl (0.66-1.25) 08/15/21 11:46 Estimated Creat Clear 96 mL/min (50-200) 08/15/21 11:46 - Prophylaxis VTE Prophylaxis Ordered?: Yes Types of VTE Prophylaxis: TEDS Knee High Location of Applied Device: Bilateral Lower Extremeties
--- NOTE | 2021-08-15 15:34 | PC.NURSE ---
pt transported to 2nd floor via stretcher at this time
--- NOTE | 2021-08-15 15:36 | PC.NURSE ---
Pt arrived to the floor at this time.
[2021-08-15 16:25] LABS: POC Glucose,Bedside 334 (70-110)
[2021-08-15 18:12] LABS: Reflex Lactic Add Lactic Reflex
--- NOTE | 2021-08-15 19:00 | HMH.HP ---
*Admission Date: 08/15/21 *Chief complaint: confusion *History of present illness: Mr. Hernandez is a 76-year-old gentleman with history of hepatocellular carcinoma, alcoholic cirrhosis, type 2 diabetes, recurrent ascites needing paracentesis biweekly, and chronic anemia who presented to the ER with worsening confusion over the past week. On arrival to the ER he reported having a few falls this past week. was with him on presentation, reported he had been getting more confused. Initial work-up concerning for severely elevated ammonia, hyponatremia, and hyperglycemia. Patient reports that he has never had encephalopathy before, is not on any medication for hyperammonemia. Given initial dose of lactulose in the ER. Admitted to medicine for further management of decompensated cirrhosis with encephalopathy. Patient interviewed after arrival to the floor. Denies any nausea or vomiting. Is able to give somewhat of a history but is off with his timeline. States he came in today for paracentesis and was unable to have it performed however documents show he had paracentesis performed yesterday. Knows he is confused, reports he has not been confused like this before. Denies any fever or shortness of breath. Denies any history of medications for encephalopathy. No family at bedside with him at this time. Denies any BM since admission. [facility] History I have reviewed the patient's past medical history: Yes Medical History: Reports:: Asthma, Atrial Fibrillation, BPH, Cancer, Congestive Heart Failure, Deep Vein Thrombosis, Diabetes Mellitus Type 2, Gastroesophageal Reflux Disease(GERD), Hyperlipidemia, Hypertension, Valvular Heart Disease Denies:: Aneurysm, Chronic Obstructive Pulmonary Disease (COPD), Cerebrovascular Accident, Diabetes Mellitus Type 1, Internal Pacemaker, Lung Disease, MRSA, Myocardial Infarction, Renal Disease, Renal Insufficiency, Seizures *Have you ever received a pneumonia vaccine?: Yes *Have you received a flu vaccine this season?: No Other Medical History: Reports: Anemia, Arthritis, Cataracts, Chemotherapy, Glaucoma, Liver Disease, Radiation Therapy, Sinus Problems. Denies: Blood Transfusion Reaction, Hypothyroidism, Thyroid Disease Laterality Cases: Bilateral: Tonsillectomy, Other Other Surgeries: Yes: No Previous Surgery, Cancer Surgery, Cardiac Catheterization, Cholecystectomy, Colonoscopy, EGD, Other (right chest pac). No: Pacemaker Amputation: No Fractures: No - *Social History Smoking Status: Never smoker Alcohol Intake: former Alcohol Intake Frequency:: holidays/special occasions only Substance Use Type: denies use *Occupational Status:: retired, disabled Housing: house Household Members: spouse *Travel in the last 8 weeks: None Family Hx:: Cancer, Diabetes, Heart Attack, Hyperlipidemia, Hypertension Review of Systems - Review of Systems Review of systems:: pertinent systems reviewed and negative unless documented below (14 point review of systems performed, pertinent positives and negatives as per HPI) Meds Home Medications Medication Instructions Recorded Confirmed Type insulin regular human 100 unit/mL 20 unit SUB-Q BID 04/22/17 08/15/21 History injection solution torsemide 20 mg tablet 20 mg PO DAILY 02/16/21 08/15/21 History Apixaban [Eliquis] 5 mg PO BID 08/15/21 08/15/21 History Empagliflozin [Jardiance] 10 mg PO DAILY 08/15/21 08/15/21 History Metoprolol Succinate [Metoprolol 12.5 mg PO DAILY 08/15/21 08/15/21 History Succinate 25mg Tablet*] Spironolactone [Spironolactone 12.5 mg PO DAILY 08/15/21 08/15/21 History 25mg Tablet] cephALEXin [Cephalexin 500mg Tab] 500 mg PO BID 08/15/21 08/15/21 History Allergies Allergy/AdvReac Type Severity Reaction Status Date / Time codeine Allergy Mild Verified 05/18/21 10:09 Sulfa (Sulfonamide Allergy Unknown Verified 05/18/21 10:09 Antibiotics) [SULFA (SULFONAMIDE ANTIBIOTICS)] acetaminophen [From Vicodin] AdvReac Verified
[2021-08-15 19:09] LABS: Lactic Acid Follow Up (RFLX 1) 4.5 mmol/L (0.7-2.1)
--- NOTE | 2021-08-15 19:13 | PC.NURSE ---
1906- critical lactic acid reported by lab. verified name, and room number 1908- notified MD Holland during evening rounds
[2021-08-15 19:48] LABS: INR 1.21 (0.9-1.1); Prothrombin Time 13.5 seconds (10.1-12.5)
[2021-08-15 20:31] LABS: Reflex Lactic (2 hrs) Add Lactic Reflex
[2021-08-15 21:07] LABS: POC Glucose,Bedside 356 (70-110)
[2021-08-15 21:54] LABS: Lactic Acid Follow up (RFLX 2) 3.1 mmol/L (0.7-2.1)
[2021-08-16 04:00] VITALS: BP 129/60; PULSE 81; RESP 14; TEMP 36.6; O2SAT 100
[2021-08-16 05:00] VITALS: BMI 31.8
[2021-08-16 05:42] LABS: POC Glucose,Bedside 230 (70-110)
[2021-08-16 06:41] LABS: Basophils % 0.4 % (0.1-2.0); Eosinophils # 0.4 K/mm3 (0.0-0.4); Eosinophils % 4.5 % (0.1-12.0); Hematocrit 29.8 % (42.0-52.0); Hemoglobin 9.6 g/dL (14.1-18.0); Lymphocytes % 11.5 % (10-50); Mean Corpuscular HGB Conc 32.1 g/dL (31.8-35.4); Mean Corpuscular Hemoglobin 32.1 pg (27.0-31.2); Mean Corpuscular Volume 99.9 fl (80-94); Mean Platelet Volume 7.7 fl (7.4-10.4); Monocytes # 0.7 K/mm3 (0.1-1.0); Neutrophils # 6.7 K/mm3 (1.8-7.8); Neutrophils % 75.7 % (37.0-80.0); Platelet Count 272 K/mm3 (142-424); Red Blood Count 2.98 M/mm3 (4.60-6.20); Red Cell Distribution Width 16.8 % (11.5-17.5); White Blood Count 8.9 K/mm3 (4.8-10.8)
[2021-08-16 06:42] LABS: Chloride 101 mmol/L (98-107); Sodium 127 mmol/L (136-145)
--- NOTE | 2021-08-16 06:42 | HMH.ACPN2 ---
Internal Medicine - PN: Subj *Date: 08/16/21 *Time: 06:42 Interval history: Multiple bowel movements overnight, at least 4. Hemodynamically stable this morning. No fever. No nausea or vomiting. Exam Vital signs and Labs for Last 24 Hours: Temp Pulse Resp BP Pulse Ox 97.9 F 81 14 129/60 100 08/16/21 04:00 08/16/21 04:00 08/16/21 04:00 08/16/21 04:00 08/16/21 04:00 Laboratory Results - last 24 hr 08/15/21 11:46: WBC 8.9, RBC 3.07 L, Hgb 10.0 L, Hct 31.1 L, MCV 101.2 H, MCH 32.6 H, MCHC 32.2, RDW 16.8, Plt Count 270, MPV 8.4, Neut % (Auto) 79.8, Lymph % (Auto) 9.0 L, [place] % (Auto) 7.3, Eos % (Auto) 3.1, Baso % (Auto) 0.7, Neut # (Auto) 7.1, Lymph # (Auto) 0.8, [place] # (Auto) 0.7, Eos # (Auto) 0.3, Baso # (Auto) 0.1 08/15/21 11:46: Sodium 126 L, Potassium 4.4, Chloride 97 L, Carbon Dioxide 22, Anion Gap 11.4, BUN 27 H, Creatinine 1.00, Estimated Creat Clear 96, Estimated GFR 73, Est GFR ( Amer) 88, Glucose 340 H, Calcium 8.8, Total Bilirubin 1.7 H, AST 51, ALT 40, Alkaline Phosphatase 134 H, Total Protein 5.3 L, Albumin 2.7 L, Globulin 2.6, Albumin/Globulin Ratio 1.0 L 08/15/21 11:46: Ammonia 97 H 08/15/21 12:55: Urine Color Yellow, Urine Appearance Clear, Urine pH 6.0, Ur Specific [place] <= 1.005, Urine Protein Negative, Urine Glucose (UA) 3+, Urine Ketones Negative, Urine Blood Negative, Urine Nitrate Negative, Urine Bilirubin Negative, Urine Urobilinogen 0.2, Ur Leukocyte Esterase 1+ A, Urine RBC Occasional, Urine WBC 3-5, Ur Squamous Epith Cells Occasional, Urine Bacteria Trace 08/15/21 14:03: Lactate 2.9 H 08/15/21 14:37: SARS-CoV-2 (PCR) Not detected, Influenza A Untype (PCR) Not detected, Influenza Type B (PCR) Not detected 08/15/21 15:51: POC Glucose 334 H* 08/15/21 18:27: Lactate 4.5 H 08/15/21 19:30: PT 13.5 H, INR 1.21 H 08/15/21 20:58: POC Glucose 356 H* 08/15/21 21:30: Lactate 3.1 H 08/16/21 05:29: POC Glucose 230 H I & O for Last 24 hours: Intake & Output 08/13/21 08/14/21 08/15/21 08/16/21 23:59 23:59 23:59 23:59 Intake Total 240 / 240 Output Total 200 / 200 Balance 40 / 40 Weight 107.076 kg 108.998 kg Assessment and Plan (1) Hepatocellular carcinoma Status: Acute Category: Medical Code(s): C22.0 - Liver cell carcinoma (2) Hyponatremia Status: Acute Category: Medical Code(s): E87.1 - Hypo-osmolality and hyponatremia (3) Hepatic encephalopathy Status: Acute Category: Medical Code(s): K72.90 - Hepatic failure, unspecified without coma (4) Obesity (BMI 30-39.9) Status: Chronic Category: Medical Code(s): E66.9 - Obesity, unspecified (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 Status: Chronic Category: Medical Code(s): E11.610 - Type 2 diabetes mellitus with diabetic neuropathic arthropathy (6) Decompensated hepatic cirrhosis Status: Acute Category: Medical Code(s): K72.90 - Hepatic failure, unspecified without coma; K74.60 - Unspecified cirrhosis of liver (7) Macrocytic anemia Status: Acute Category: Medical Code(s): D53.9 - Nutritional anemia, unspecified - Assessment and plan all Dx Assessment and Plan for all problems:: 76-year-old male with hepatocellular carcinoma, decompensated cirrhosis, recurrent ascites, type 2 diabetes, and chronic anemia who presented with hepatic encephalopathy due to hyperammonemia. Labs also noted hyponatremia and hypochloremia. Initiated on IV fluids, lactulose, rifaximin. Patient able to give some history on exam. Appears hemodynamically stable. Tolerating treatment. Problems addressed as follows: Hepatic encephalopathy in the setting of decompensated cirrhosis Hepatocellular carcinoma Ascites -Child Solomon class C; meld score of 21. -Severely elevated ammonia. Asterixis on exam. Grade 1 encephalopathy. -Initiated on lactulose 4 times a day and rifaximin 550 mg twice daily. Will monitor for improvement. -This is a change in the patient's cirrhosis. Disease progr
[2021-08-16 06:43] LABS: Ammonia 43 umol/L (9-30); Potassium 4.2 mmoL/L (3.5-5.1)
[2021-08-16 06:45] LABS: Alanine Aminotransferase 39 U/L (12-78); Albumin Level 2.5 g/dl (3.5-5.0); Alkaline Phosphatase 123 U/L (38-126); Anion Gap 7.2 mEq/L (5-15); Aspartate Amino Transferase 61 U/L (17-59); Blood Urea Nitrogen 25 mg/dl (9-20); Calcium 8.4 mg/dl (8.4-10.2); Carbon Dioxide 23 mmol/L (22.0-30.0); Creatinine Clearance Estimated 100 mL/min (50-200); Estimated Glomerular Filt Rate 82 ml/min (>60); GFR (African American) 100 ML/MIN (>60); Globulin 2.6 g/dL (1.3-3.2); Glucose 233 mg/dl (74-100); Total Protein,Serum 5.1 g/dl (6.3-8.2)
[2021-08-16 06:46] LABS: Magnesium 2.3 mg/dl (1.6-2.3)
[2021-08-16 08:00] VITALS: BP 132/74; PULSE 103; RESP 16; TEMP 36.6; O2SAT 98
--- NOTE | 2021-08-16 09:42 | SW/DCPLANNER ---
Addendum entered by Angeline Isaac 08/16/21 13:48: Patient/ have decided to return home w/o Hospice at this time. Linsey did visit this patient and family at [facility] today and did provide their numbers for a future reference. [facility] Patient will discharge home today. Addendum entered by Angeline Isaac 08/16/21 11:15: Linsey neff/ [facility] has reviewed patient information and will contact patient's today to arrange time to meet with patient today. Addendum entered by Angeline Isaac 08/16/21 10:13: CORRECTION: patient information has been faxed to [facility]. I will follow up with Intake once patient information is reviewed. Original Note: Dr Holland engaged in conversation with patient and his regarding discharge plans. Hospice services were recommended and patient/ are agreeable. Patient information has been faxed to Miranda neff/ [facility]: I will follow up with Miranda once patient information is reviewed. Patient will discharge home later this afternoon.
--- NOTE | 2021-08-16 11:44 | HMH.PHAINT ---
MEDICATION RECONCILIATION COMPLETED ON PATIENT USING EXTERNAL FILL HISTORY FROM PHARMACY. -MICHAEL PECK, MENAD
--- NOTE | 2021-08-16 13:44 | CARE MANAGER ---
Patient will require a bedside commode r/t inability to ambulate the distance to the bathroom in the home.
--- NOTE | 2021-08-16 14:07 | [facility].DCSUM ---
General - General Admission date:: 08/15/21 Discharge date: 08/16/21 HPI HPI: Mr. Hernandez is a 76-year-old gentleman with history of hepatocellular carcinoma, alcoholic cirrhosis, type 2 diabetes, recurrent ascites needing paracentesis biweekly, and chronic anemia who presented to the ER with worsening confusion over the past week. On arrival to the ER he reported having a few falls this past week. was with him on presentation, reported he had been getting more confused. Initial work-up concerning for severely elevated ammonia, hyponatremia, and hyperglycemia. Patient reports that he has never had encephalopathy before, is not on any medication for hyperammonemia. Given initial dose of lactulose in the ER. Admitted to medicine for further management of decompensated cirrhosis with encephalopathy. Patient interviewed after arrival to the floor. Denies any nausea or vomiting. Is able to give somewhat of a history but is off with his timeline. States he came in today for paracentesis and was unable to have it performed however documents show he had paracentesis performed yesterday. Knows he is confused, reports he has not been confused like this before. Denies any fever or shortness of breath. Denies any history of medications for encephalopathy. No family at bedside with him at this time. Denies any BM since admission. Hospital Course Hospital Course: 76-year-old male with hepatocellular carcinoma, decompensated cirrhosis, recurrent ascites, type 2 diabetes, and chronic anemia who presented with hepatic encephalopathy due to hyperammonemia. Labs also noted hyponatremia and hypochloremia. Initiated on IV fluids, lactulose, rifaximin. Had numerous bowel movements overnight with improvement in mentation. More or less back to baseline per 's report. Remained hemodynamically stable. Tolerating good p.o. intake. Problems addressed as follows: Hepatic encephalopathy in the setting of decompensated cirrhosis Hepatocellular carcinoma Ascites -Child Solomon class C; meld score of 21. Presented with Severely elevated ammonia. Asterixis on exam. Grade 1 encephalopathy. Initiated on lactulose 4 times a day and rifaximin 550 mg twice daily. Numerous bowel movements, improvement in mentation. We will continue lactulose at discharge to treat hepatic encephalopathy. Given progression of his cirrhosis, underlying hepatocellular carcinoma, discussed benefits of hospice consult. Hospice saw patient before he was discharged, patient wanted to think about their services and declined admission to hospice at this time. We will continue patient's torsemide and spironolactone for fluid management and to minimize development of ascites. Continue with regularly scheduled paracentesis Diabetes w/ hyperglycemia -Treated with sliding scale insulin and fingersticks before meals and at bedtime during admission. Resume home medication/regimen at discharge A. fib -Continued metoprolol and apixaban. Electrolyte disturbances -Hyponatremia and hypochloremia secondary to cirrhosis, improved somewhat with fluid resuscitation. Discussion about goals of care with patient, spouse, and his oncologist via conference call. Patient has terminal hepatocellular carcinoma, end-stage liver disease, and all treatments moving forward will be palliative. Patient wants to continue to consider/think about hospice. We will plan for close follow-up and establish care with our office. Has follow-up with oncology in the coming week. Continue paracentesis at discharge. Medically stable for discharge home. Objective Vital signs: Temp Pulse Resp BP Pulse Ox 97.9 F 103 H 16 132/74 98 08/16/21 08:00 08/16/21 08:00 08/16/21 08:00 08/16/21 08:00 08/16/21 08:00 Narrative: - Constitutional NAD on RA, obese, chronically ill appearing - *Routine HEENT Exam Head: Present: normocephalic Eye: Present: EOMI, PERRL ENT: Present: mucous me
[2021-08-17 02:35] LABS: POC Glucose,Bedside 283 (70-110)
--- NOTE | 2021-08-17 15:45 | CARE MANAGER ---
Spoke with patient and for post-discharge follow-up phone call, states that patient fell in the shower today. She said the fire department had to come help her get him up, he takes lactulose and that makes his bowels move frequently and she was trying to clean him up when he fell. [facility] is coming to evaluate him tomorrow for some resources.
== END 2021-08-16 15:05 | disposition home or self-care (01) ==
LOC: ER 13:01 → 2ND 13:20
PROVIDERS: Admitting Provider Internal Medicine Adolescent Medicine; Emergency Provider Emergency Medicine; PCP Family Medicine; Visit Provider Internal Medicine Adolescent Medicine
DX: K72.90 Hepatic failure, unspecified without coma (principal); E86.0 Dehydration; N39.0 Urinary tract infection, site not specified; K74.60 Unspecified cirrhosis of liver; C22.0 Liver cell carcinoma; E11.65 Type 2 diabetes mellitus with hyperglycemia; I48.91 Unspecified atrial fibrillation; E87.1 Hypo-osmolality and hyponatremia; E87.8 Other disorders of electrolyte and fluid balance, not elsewhere classified; Z20.822 Contact with and (suspected) exposure to COVID-19; E11.21 Type 2 diabetes mellitus with diabetic nephropathy; D53.9 Nutritional anemia, unspecified; E66.9 Obesity, unspecified; Z68.31 Body mass index [BMI] 31.0-31.9, adult; Z79.4 Long term (current) use of insulin
CPT/HCPCS: G0378; 49083; 70450; 71101; 72125; 72170; 80053; 81001; 82140; 82962; 83605; 83735; 85025; 85610; 87040; 87086; 99285; C9803; J0696; U0003; U0005